=== PATIENT | male | born 1965 | race American Indian/Alaskan Native ===

== ENCOUNTER 2017-03-18 03:48 | Inpatient (IN) | payer MEDICAID ==
[2017-03-18 03:49] VITALS: BMI 38.7
--- NOTE | 2017-03-18 04:06 | ED PDOC ---
Arrival/HPI - General Chief Complaint: Abdominal Pain Time Seen by Provider: 03/18/17 03:50 Historian: Patient - History of Present Illness Narrative History of Present Illness (Text): 03/18/17 04:03 A 52 year old male whose past medical history includes hypertension, ventral hernia, tobacco use, and asthma, presents to the emergency department with a complaint of several day duration, worsening pain surrounding his ventral hernia site. The patient states that he has been able to pass gas and that the pain has become worse over the past few days. The patient denies fevers, chills , headache, dizziness, chest pain, shortness of breath, dyspnea on exertion, cough, nausea, vomiting, diarrhea, back pain, neck pain, urinary/bowel changes, or any other complaint. PMD: Dr. Tavarez Time/Duration: Other (Several Days) Symptom Onset: Sudden Symptom Course: Worsening Activities at Onset: Rest, Light Context: Home Past Medical History - Provider Review Nursing Documentation Reviewed: Yes - Infectious Disease Hx of Infectious Diseases: None - Tetanus Immunization Tetanus Immunization: Unknown - Cardiac Hx Cardiac Disorders: Yes Hx Hypertension: Yes - Pulmonary Hx Respiratory Disorders: Yes Hx Asthma: Yes - Musculoskeletal/Rheumatological Hx Musculoskeletal Disorders: Yes Hx Back Pain: Yes - Gastrointestinal Hx Gastrointestinal Disorders: Yes (umbilical hernia surgery 2009) - Psychiatric Hx Psychophysiologic Disorder: No Hx Substance Use: Yes (5 bags of heroin daily) - Surgical History Hx Inguinal Hernia Repair: Yes (abd hernia) - Anesthesia Hx Anesthesia Reactions: No Hx Malignant Hyperthermia: No - Suicidal Assessment Feels Threatened In Home Enviroment: No Family/Social History - Physician Review Nursing Documentation Reviewed: Yes Family/Social History: No Known Family HX Smoking Status: Light Smoker < 10 Cigarettes Daily Hx Alcohol Use: Yes Frequency of alcohol use: Socially Hx Substance Use: Yes (5 bags of heroin daily) Substance used: heroin Hx Substance Use Treatment: No Allergies/Home Meds Allergies/Adverse Reactions: Allergies No Known Allergies Allergy (Verified 03/25/14 18:35) Home Medications: Home Meds Medication Instructions Recorded Confirmed oxyCODONE [oxyCODONE Immediate 30 mg PO QID 03/18/17 03/18/17 Release Tab] Review of Systems - Physician Review All systems were reviewed & negative as marked: Yes - Review of Systems Constitutional: absent: Fevers, Night Sweats Respiratory: absent: SOB, Cough Cardiovascular: absent: Chest Pain, [place] Gastrointestinal: Abdominal Pain (Pain surrounding ventral hernia ). absent: Diarrhea, Nausea, Vomiting Genitourinary Male: absent: Urinary Output Changes Musculoskeletal: absent: Back Pain, Neck Pain Neurological: absent: Headache, Dizziness Physical Exam Vital Signs Reviewed: Yes Vital Signs Temp Pulse Resp BP Pulse Ox 03/18/17 10:00 80 18 145/90 98 03/18/17 08:37 97.6 F 76 16 149/74 96 03/18/17 06:08 71 18 149/101 H 96 03/18/17 03:55 98.8 F 80 18 160/98 H 96 Temperature: Afebrile Blood Pressure: Hypertensive Pulse: Regular Respiratory Rate: Normal Appearance: Positive for: Well-Appearing, Non-Toxic Pain Distress: None Mental Status: Positive for: Alert and Oriented X 3 - Systems Exam Head: Present: Atraumatic, Normocephalic Pupils: Present: PERRL Extroacular Muscles: Present: EOMI Conjunctiva: Present: Normal Mouth: Present: Moist Mucous Membranes Neck: Present: Normal Range of Motion Respiratory/Chest: Present: Clear to Auscultation, Good Air Exchange. No: Respiratory Distress, Accessory Muscle Use Cardiovascular: Present: Regular Rate and Rhythm, Normal S1, S2. No: Murmurs Abdomen: Present: Tenderness (tender around ventral hernia), Hernias (ventral hernia) Back: Present: Normal Inspection Upper Extremity: Present: Normal Inspection. No: Cyanosis, Edema Lower Extremity: Present: Normal Inspection. No: Edema Neurological: Present: GCS=15, CN II-XII Intact, Speech Normal Skin: Present: Warm, Dry, Normal Color. No: Rashes Psychiatric: Present: Alert, Oriented x 3, Normal Insight, Normal Concentration Medical Decision Making ED Course and Treatment: 03/18/17 04:07 Impression: A 52 year old male presents to the emergency department with a complaint of pain surrounding his ventral hernia site. Plan: -- Labs -- Urinalysis -- Toradol -- Reassess and disposition Prior Visits: Notes and results from previous visits were reviewed. Patient was last seen in the emergency department on 10/17/2014. The patient was seen in the emergency department for a complaint of abdominal pain over ventral hernia. The patient was hospitalized. Progress Notes: 03/18/17 04:07: Discussed case with surgical services manager. Will come evaluate patient. 03/18/17 05:43: Discussed case in detail with Dr. Dennis. 03/18/17 05:50: residential construction instructor at bedside evaluating patient. 03/18/17 06:02 ekg nsr [address] t wave changes, normal intervals. 03/18/17 19:20 signed out tot day shift pending ct and final dispo - Lab Interpretations Lab Results: 03/18/17 04:20 03/18/17 04:20 Lab Results 03/18/17 05:33: Lactate Dehydrogenase 429, Total Creatine Kinase 188, Troponin I < 0.01 03/18/17 05:33: Urine Color Yellow, Urine Appearance Clear, Urine pH 6.0, Ur Specific [place] 1.025, Urine Protein Negative, Urine Glucose (UA) Negative, Urine Ketones Negative, Urine Blood Small H, Urine Nitrate Negative, Urine Bilirubin Negative, Urine Urobilinogen 0.2, Ur Leukocyte Esterase Negative, Urine RBC 5 - 10, Urine WBC 0 - 2, Ur Epithelial Cells 0 - 2, Urine Bacteria Many 03/18/17 04:20: Sodium 140, Potassium 3.8, Chloride 103, Carbon Dioxide 30, Anion Gap 11, BUN 9, Creatinine 0.8, Est GFR ( Amer) > 60, Est GFR (Non- Af Amer) > 60, Random Glucose 117 H, Calcium 8.5, Total Bilirubin 0.2, AST 26, ALT 25, Alkaline Phosphatase 65, Total Protein 6.9, Albumin 3.6, Globulin 3.3, Albumin/Globulin Ratio 1.1, Lipase 20 L 03/18/17 04:20: PT 10.9, INR 1.00, APTT 29.6 03/18/17 04:20: WBC 6.6, RBC 4.56, Hgb 12.2 L, Hct 39.3 L, MCV 86.2, MCH 26.8, MCHC 31.0, RDW 16.1 H, Plt Count 302, MPV 8.5, Gran % 55.2, Lymph % (Auto) 31.0 , [place] % (Auto) 10.0 H, Eos % (Auto) 3.5, Baso % (Auto) 0.3, Gran # 3.64, Lymph # 2.0, [place] # 0.7 H, Eos # 0.2, Baso # 0.02 I have reviewed the lab results: Yes - RAD Interpretation Radiology Orders: 03/18/17 04:58 ABD PELVIS PO & IV CONTRAST [CT] Stat - Medication Orders Current Medication Orders: Albuterol/Ipratropium (Duoneb 3 Mg/0.5 Mg (3 Ml) Ud) 3 ml IH [id number] PRN PRN Reason: Wheezing Albuterol/Ipratropium (Duoneb 3 Mg/0.5 Mg (3 Ml) Ud) 3 ml IH [id number] [facility] Last Admin: 03/18/17 14:52 Dose: Not Given Non-Admin Reason: Patient Refused Benzocaine/Menthol (Cepacol Sore Throat) 1 dalia MT Q2H PRN PRN Reason: Sore Throat Budesonide (Pulmicort Respules) 0.5 mg IH [id number] [facility] Clonidine HCl (Catapres-Tts2 0.2 Mg/24 Hr) 1 patch TD Q7D@1000 GO Last Admin: 03/18/17 18:11 Dose: 1 patch MAR Pulse and Blood Pressure Document 03/18/17 18:11 MV (Rec: 03/18/17 18:12 MV [id number]) Blood Pressure Blood Pressure (100/60-150/90) 176/96 MAR Transdermal Patch Site Document 03/18/17 18:11 MV (Rec: 03/18/17 18:12 MV [id number]) Transdermal Patch Site Transdermal Patch Site Right Outer Upper Arm Heparin Sodium (Porcine) (Heparin) 5,000 units SC Q8 GO PRN Reason: Protocol Last Admin: 03/18/17 17:17 Dose: 5,000 units Subcutaneous Administrations Document 03/18/17 17:17 MV (Rec: 03/18/17 17:18 MV [id number]) Charges for Administration # of Subcutaneous Administrations 1 Hydromorphone HCl (Dilaudid) 1 mg IVP Q2H PRN PRN Reason: withdrawl Last Admin: 03/18/17 18:10 Dose: 1 mg MAR Pain Assessment Document 03/18/17 18:10 MV (Rec: 03/18/17 18:11 MV [id number]) Pain Reassessment Is this a pain reassessment? No Sleep Is patient sleeping during reassessment? No Presence of Pain Presence of Pain Yes Location Pain Location Body Site Generalized Description Description Throbbing Intensity of Pain at present 9 Pain Behavior Irritability Alleviating Factors/Management Medication Techniques Alleviating Factors Medication IVP Administration Document 03/18/17 18:10 MV (Rec: 03/18/17 18:11 MV [id number]) Charges for Administration # of IVP Administrations 1 Dextrose/Sodium Chloride (Dextrose 5%/0.45% Ns 1000 Ml) 1,000 mls @ 150 mls/hr IV .Q6H40M [facility] Last Admin: 03/18/17 17:32 Dose: 150 mls/hr eMAR Start Stop Document 03/18/17 17:32 MV (Rec: 03/18/17 17:32 MV [id number]) Intravenous Solution Start Date 03/18/17 Start Time 17:32 End Date 03/18/17 Metronidazole (Flagyl) 250 mg in 50 mls @ 100 mls/hr IVPB Q8 GO PRN Reason: Protocol Stop: 03/23/17 15:01 Last Admin: 03/18/17 17:19 Dose: 100 mls/hr Comments: Patient was a transfer from . called pharmacy for medication. eMAR Start Stop Document 03/18/17 17:19 MV (Rec: 03/18/17 17:20 MV [id number]) Intravenous Solution Start Date 03/18/17 Start Time 17:20 End Date 03/18/17 End time 17:50 Total Infusion Time 30 Ceftriaxone Sodium 250 mg/ (Sodium Chloride) 50 mls @ 30 mls/hr IVPB DAILY [facility] PRN Reason: Protocol Ondansetron HCl (Zofran Inj) 4 mg IVP Q6H PRN PRN Reason: Nausea/Vomiting Last Admin: 03/18/17 16:28 Dose: 4 mg IVP Administration Document 03/18/17 16:28 MV (Rec: 03/18/17 16:28 MV [id number]) Charges for Administration # of IVP Administrations 1 Pantoprazole Sodium (Protonix Inj) 40 mg IVP DAILY [facility] Last Admin: 03/18/17 13:02 Dose: 40 mg IVP Administration Document 03/18/17 13:02 SD (Rec: 03/18/17 13:02 SD [facility] [id number]) Charges for Administration # of IVP Administrations 1 Discontinued Medications Hydromorphone HCl (Dilaudid) 1 mg IVP STAT STA Stop: 03/18/17 10:35 Last Admin: 03/18/17 10:42 Dose: 1 mg MAR Pain Assessment Document 03/18/17 10:42 EWO (Rec: 03/18/17 10:42 E[facility] [id number] Pain Reassessment Is this a pain reassessment? Yes Sleep Is patient sleeping during reassessment? No Presence of Pain Presence of Pain Yes Location Pain Location Body Site Abdomen Description Description Constant IVP Administration Document 03/18/17 10:42 EWO (Rec: 03/18/17 10:42 [id number] Charges for Administration # of IVP Administrations 1 Hydromorphone HCl (Dilaudid) 1 mg IVP STAT STA Stop: 03/18/17 11:25 Last Admin: 03/18/17 11:40 Dose: 1 mg MAR Pain Assessment Document 03/18/17 11:40 EWO (Rec: 03/18/17 11:41 [id number] Pain Reassessment Is this a pain reassessment? Yes Sleep Is patient sleeping during reassessment? No Presence of Pain Presence of Pain Yes Pain Scale Used Pain Scale Used Numeric Location Pain Location Body Site Abdomen Description Description Constant Intensity of Pain at present 9 IVP Administration Document 03/18/17 11:40 EWO (Rec: 03/18/17 11:41 [id number] Charges for Administration # of IVP Administrations 2 Re-Assess: MAR Pain Assessment Document 03/18/17 12:40 SD (Rec: 03/18/17 12:46 SD [facility] [id number]) Pain Reassessment Is this a pain reassessment? Yes Sleep Is patient sleeping during reassessment? No Presence of Pain Presence of Pain Yes Pain Scale Used Pain Scale Used Numeric Location Pain Location Body Site Abdomen Description Description Constant Intensity of Pain at present 10 Pain Behavior Facial Grimacing Hydromorphone HCl (Dilaudid) 1 mg IVP Q4H PRN PRN Reason: Pain, severe (8-10) Last Admin: 03/18/17 13:43 Dose: 1 mg MAR Pain Assessment Document 03/18/17 13:43 SD (Rec: 03/18/17 13:43 SD [facility] [id number]) Pain Reassessment Is this a pain reassessment? No Presence of Pain Presence of Pain Yes Pain Scale Used Pain Scale Used Numeric Location Pain Location Body Site Abdomen Description Description Constant Intensity of Pain at present 10 Pain Behavior Facial Grimacing IVP Administration Document 03/18/17 13:43 SD (Rec: 03/18/17 13:43 SD [facility] [id number]) Charges for Administration # of IVP Administrations 1 Dextrose/Sodium Chloride (Dextrose 5%/0.45% Ns 1000 Ml) 1,000 mls @ 100 mls/hr IV .Q10H [facility] Last Admin: 03/18/17 09:56 Dose: 100 mls/hr eMAR Start Stop Document 03/18/17 09:56 EWO (Rec: 03/18/17 09:57 EWO [facility] [id number]) Intravenous Solution Start Date 03/18/17 Start Time 09:57 Ketorolac Tromethamine (Toradol) 30 mg IVP STAT STA Stop: 03/18/17 04:04 Last Admin: 03/18/17 04:22 Dose: 30 mg MAR Pain Assessment Document 03/18/17 04:22 SS (Rec: 03/18/17 04:22 SS [id number]) Pain Reassessment Is this a pain reassessment? No Sleep Is patient sleeping during reassessment? No Presence of Pain Presence of Pain Yes IVP Administration Document 03/18/17 04:22 SS (Rec: 03/18/17 04:22 SS [id number]) Charges for Administration # of IVP Administrations 1 Methadone HCl (Methadone) 10 mg PO STAT STA Stop: 03/18/17 16:42 Last Admin: 03/18/17 17:18 Dose: 10 mg MAR Pain Assessment Document 03/18/17 17:18 MV (Rec: 03/18/17 17:19 MV [id number]) Pain Reassessment Is this a pain reassessment? No Sleep Is patient sleeping during reassessment? No Presence of Pain Presence of Pain Yes Pain Scale Used Pain Scale Used Numeric Location Pain Location Body Site Generalized Description Description Constant Intensity of Pain at present 9 Pain Behavior Moaning Irritability Facial Grimacing Alleviating Factors/Management Medication Techniques Alleviating Factors Medication Morphine Sulfate (Morphine) 4 mg IV STAT STA Stop: 03/18/17 08:31 Last Admin: 03/18/17 08:53 Dose: 4 mg eMAR Start Stop Document 03/18/17 08:53 EWO (Rec: 03/18/17 08:54 EWO [facility] [id number]) Intravenous Solution Start Date 03/18/17 Start Time 08:54 End Date 03/18/17 End time 09:00 Total Infusion Time 6 MAR Pain Assessment Document 03/18/17 08:53 EWO (Rec: 03/18/17 08:54 EWO [facility] [id number]) Pain Reassessment Is this a pain reassessment? Yes Sleep Is patient sleeping during reassessment? No Presence of Pain Presence of Pain Yes Pain Scale Used Pain Scale Used Numeric Location Pain Location Body Site Abdomen Description Description Intermittent Intensity of Pain at present 7 Pneumococcal Polyvalent Vaccine (Pneumovax 23 Vaccine) 0.5 ml IM .ONCE ONE Stop: 03/18/17 12:37 Last Admin: 03/18/17 12:45 Dose: Immunization Registry Document 03/18/17 12:45 SD (Rec: 03/18/17 12:45 SD [facility] [id number]) Immunization Registry Consent Date 03/18/17 - Scribe Statement The provider has reviewed the documentation as recorded by the Navid Feliciano Provider Scribe Attestation: All medical record entries made by the Scribe were at my direction and personally dictated by me. I have reviewed the chart and agree that the record accurately reflects my personal performance of the history, physical exam, medical decision making, and the department course for this patient. I have also personally directed, reviewed, and agree with the discharge instructions and disposition. Disposition/Present on Arrival - Present on Arrival Any Indicators Present on Arrival: No History of DVT/PE: No History of Uncontrolled Diabetes: No Urinary Catheter: No History of Decub. Ulcer: No History Surgical Site Infection Following: None - Disposition Have Diagnosis and Disposition been Completed?: Yes Diagnosis: Incarcerated ventral hernia, SBO (small bowel obstruction), Intractable abdominal pain Disposition: HOSPITALIZED Disposition Time: 07:00 Patient Problems: Current Active Problems Problem Status Onset Incarcerated ventral hernia Acute Intractable abdominal pain Acute SBO (small bowel obstruction) Acute Condition: STABLE
[2017-03-18 04:49] LABS: BASO # 0.02 K/mm3 (0.0-2.0); BASO % 0.3 % (0.0-3.0); EOS # 0.2 (0.0-0.7); EOS % 3.5 % (1.5-5.0); GRAN # 3.64 (1.4-6.5); GRAN % 55.2 % (50.0-68.0); HEMOGLOBIN 12.2 g/dL (14.0-18.0); MEAN CELL VOLUME 86.2 fl (80.0-105.0); MEAN CORPUSCULAR HEMOGLOBIN 26.8 pg (25.0-35.0); MEAN PLATELET VOLUME 8.5 fl (7.0-11.0); MONO # 0.7 (0.1-0.6); RBC 4.56 10^6/uL (3.5-6.1); RED CELL DISTRIBUTION WIDTH 16.1 % (11.5-14.5); WHITE BLOOD COUNT 6.6 10^3/ul (4.5-11.0)
[2017-03-18 04:51] LABS: ALB/GLOB RATIO 1.1 (1.1-1.8); ALBUMIN 3.6 g/dL (3.0-4.8); ALT/SGPT 25 U/L (7-56); AST/SGOT 26 U/L (17-59); BLOOD UREA NITROGEN 9 mg/dL (7-21); CALCIUM 8.5 mg/dL (8.4-10.5); GFR AFRICAN-AMERICAN > 60; GFR NON-AFRICAN AMERICAN > 60; LIPASE 20 U/L (23-300)
[2017-03-18 04:59] LABS: PARTIAL THROMBOPLASTIN TIME 29.6 Seconds (25.1-36.5); PROTHROMBIN TIME 10.9 SECONDS (9.4-12.5)
[2017-03-18] MEDS ORDERED: Iohexol 240 (50 ml) ONE (05:33)
[2017-03-18 05:51] LABS: URINE BILIRUBIN NEGATIVE (NEGATIVE); URINE BLOOD SMALL (NEGATIVE); URINE GLUCOSE (UA) NEGATIVE (NEGATIVE); URINE LEUKOCYTE ESTERASE NEGATIVE Leu/uL (NEGATIVE); URINE NITRATE NEGATIVE (NEGATIVE); URINE PROTEIN NEGATIVE mg/dL (<30 mg/dL); URINE UROBILINOGEN 0.2 E.U./dL (<1 E.U./dL)
[2017-03-18 05:52] LABS: URINE APPEARANCE CLEAR (CLEAR); URINE COLOR YELLOW (YELLOW)
[2017-03-18 06:02] LABS: TROPONIN I < 0.01 ng/mL
[2017-03-18 06:26] LABS: URINE BACTERIA MANY (NEG); URINE EPITHELIAL CELLS 0 - 2 /hpf (0-5); URINE WBC 0 - 2 /hpf (0-6)
[2017-03-18] MEDS ORDERED: Iohexol 350 MG/100 ML VIAL ONE (07:16)
--- NOTE | 2017-03-18 07:23 | ED PDOC ---
Physical Exam Vital Signs Reviewed: Yes Vital Signs Temp Pulse Resp BP Pulse Ox 03/18/17 10:00 80 18 145/90 98 03/18/17 08:37 97.6 F 76 16 149/74 96 03/18/17 06:08 71 18 149/101 H 96 03/18/17 03:55 98.8 F 80 18 160/98 H 96 Temperature: Afebrile Blood Pressure: Hypertensive Pulse: Regular Respiratory Rate: Normal Appearance: Positive for: Well-Appearing, Non-Toxic, Comfortable Pain Distress: Mild Mental Status: Positive for: Alert and Oriented X 3 - Systems Exam Head: Present: Atraumatic, Normocephalic Pupils: Present: PERRL Extroacular Muscles: Present: EOMI Conjunctiva: Present: Normal Mouth: Present: Moist Mucous Membranes Neck: Present: Normal Range of Motion Respiratory/Chest: Present: Clear to Auscultation, Good Air Exchange. No: Respiratory Distress, Accessory Muscle Use Cardiovascular: Present: Regular Rate and Rhythm, Normal S1, S2. No: Murmurs Abdomen: Present: Normal Bowel Sounds, Other (mid abd large ventral hernia is noted, reducible; diffuse mid/lower abd tenderness; obese/well nourished male; no fermin's sign, no mcburney's point tenderness, no rebound/guarding/rigidity) . No: Tenderness, Distention, Peritoneal Signs Back: Present: Normal Inspection Upper Extremity: Present: Normal Inspection, Normal ROM, NORMAL PULSES, Neurovascularly Intact, Capillary Refill < 2s. No: Cyanosis, Edema Lower Extremity: Present: Normal Inspection, NORMAL PULSES, Normal ROM, Neurovascularly Intact, Capillary Refill < 2 s. No: Edema Neurological: Present: GCS=15, CN II-XII Intact, Speech Normal Skin: Present: Warm, Dry, Normal Color. No: Rashes Psychiatric: Present: Alert, Oriented x 3, Normal Insight, Normal Concentration Medical Decision Making ED Course and Treatment: 03/18/17 07:00 Case signed out to me by Dr. Chew. 52 year old male came in to the emergency department with abdominal pain for a couple of days. Currently pending CT scan. resident medical officer polymer materials consultant was contacted on behalf of Dr. Dennis and had evaluated the patient at bedside earlier tonight. per Dr. Chew patient can be disposition accordingly. 03/18/17 08:25 pt denied nausea/vomiting pt states last BM was yesterday on re-eval, pt states his pain is coming back and is now rated at 7/10 pt is awaiting for his ct abd/pelvis results 03/18/17 09:05 Spoke to patient regarding CT diagnosis who is now made aware of findings. Patient was instructed not to eat prior to reevaluation, however he has breakfast about half and hour ago. Patient agrees with admission. resident medical officer was paged and currently awaiting reply. 03/18/17 09:10 Message transcribed to operations vice president who is currently in and will reevaluate patient with case. 03/18/17 10:32 Surgical team/resident is at bed side with patient and agree with emergency department medical management, treatment, and diagnosis. Recommends admission with Dr. Dennis for patient's care and surgical findings. 03/18/17 10:40 resident medical officer called, Dr. Dennis does not want to admit patient into his service; would like medicine to admit due to pt's complicated medical hx/ substance abuse 03/18/17 10:57 paging medicine 03/18/17 11:[address] Tavarez, pt' pcp, made aware, would like pt admitted by hospitalists paging hospitalists, Dr Maddox polymer materials consultant, made aware, agrees with admission 03/18/17 11:25 pt continues to have abd pain currently pt is made aware of his medical results agrees with admission Re-evaluation Time: 08:20 Reassessment Condition: Improving,but remains with symptoms - Lab Interpretations Lab Results: 03/18/17 04:20 03/18/17 04:20 Lab Results 03/18/17 05:33: Lactate Dehydrogenase 429, Total Creatine Kinase 188, Troponin I < 0.01 03/18/17 05:33: Urine Color Yellow, Urine Appearance Clear, Urine pH 6.0, Ur Specific [place] 1.025, Urine Protein Negative, Urine Glucose (UA) Negative, Urine Ketones Negative, Urine Blood Small H, Urine Nitrate Negative, Urine Bilirubin Negative, Urine Urobilinogen 0.2, Ur Leukocyte Esterase Negative, Urine RBC 5 - 10, Urine WBC 0 - 2, Ur Epithelial Cells 0 - 2, Urine Bacteria Many 03/18/17 04:20: Sodium 140, Potassium 3.8, Chloride 103, Carbon Dioxide 30, Anion Gap 11, BUN 9, Creatinine 0.8, Est GFR ( Amer) > 60, Est GFR (Non- Af Amer) > 60, Random Glucose 117 H, Calcium 8.5, Total Bilirubin 0.2, AST 26, ALT 25, Alkaline Phosphatase 65, Total Protein 6.9, Albumin 3.6, Globulin 3.3, Albumin/Globulin Ratio 1.1, Lipase 20 L 03/18/17 04:20: PT 10.9, INR 1.00, APTT 29.6 03/18/17 04:20: WBC 6.6, RBC 4.56, Hgb 12.2 L, Hct 39.3 L, MCV 86.2, MCH 26.8, MCHC 31.0, RDW 16.1 H, Plt Count 302, MPV 8.5, Gran % 55.2, Lymph % (Auto) 31.0 , Kaufman % (Auto) 10.0 H, Eos % (Auto) 3.5, Baso % (Auto) 0.3, Gran # 3.64, Lymph # 2.0, Kaufman # 0.7 H, Eos # 0.2, Baso # 0.02 I have reviewed the lab results: Yes (WNL) Interpretation: All labs normal - RAD Interpretation Narrative RAD Interpretations (Text): 03/18/17 09:05 CT abdomen and pelvis: Creator : YAAKOV JACKSON COMPARISON: CT - ABD PELVIS PO CONTRAST ONLY 2016-06-07 09:50 FINDINGS: Lower thorax: Bibasilar right more than left nonspecific infiltrates are present, consistent with atelectasis or pneumonia. ABDOMEN: Liver: Perihepatic fluid around the right inferior aspect of the liver. Fatty liver. Gallbladder and bile ducts: Contracted gallbladder with gallbladder wall thickening. Pancreas: Unremarkable. No mass. No ductal dilation. Spleen: Unremarkable. No splenomegaly. Adrenals: Nodular thickening of right adrenal gland. Left adrenal nodule measuring 2.7 cm unchanged from prior examination from October 17, 2014 as indicated in the report dated June 07, 2016 likely representing benign etiology. Kidneys and ureters: Unremarkable. No solid mass. No hydronephrosis. Stomach and bowel: There is a moderate fat containing ventral abdominal wall hernia as seen on image 84 series 3. There is bowel containing ventral abdominal wall hernia as seen on image 109 series 3 and on image 91 series 602 with surrounding bowel wall thickening infiltration and resultant small bowel obstruction suspicious for incarcerated ventral hernia. Diverticulosis. There is calcific densities overlying the duodenum unchanged from prior examination. Appendix: The appendix is not seen. PELVIS: Bladder: Partially decompressed bladder with bladder wall thickening. Correlation with urinalysis is recommended only if clinical cystitis is suspected. Reproductive: Prostate gland is seen. ABDOMEN and PELVIS: Intraperitoneal space: Small amount of free pelvic fluid. No free air. Bones/joints: L5-S1 vacuum degenerative disc disease. No acute fracture. No dislocation. Soft tissues: Unremarkable. Vasculature: Unremarkable. No abdominal aortic aneurysm. Lymph nodes: Unremarkable. No enlarged lymph nodes. IMPRESSION: 1. There is a moderate fat containing ventral abdominal wall hernia as seen on image 84 series 3. There is bowel containing ventral abdominal wall hernia as seen on image 109 series 3 and on image 91 series 602 with surrounding bowel wall thickening infiltration and resultant small bowel obstruction suspicious for incarcerated ventral hernia. 2. Small amount of free pelvic fluid. Radiology Orders: 03/18/17 04:58 ABD PELVIS PO & IV CONTRAST [CT] Stat Alcoholic Counselor: Radiologist - EKG Interpretation EKG Interpretation (Text): 03/18/17 10:58 NSR at 65 bpm, LAD, no ectopy, no st-t changes, ABNL EKG; Interpreted by ED Physician: Yes Type: 12 lead EKG - Medication Orders Current Medication Orders: Dextrose/Sodium Chloride (Dextrose 5%/0.45% Ns 1000 Ml) 1,000 mls @ 100 mls/hr IV .Q10H GO Last Admin: 03/18/17 09:56 Dose: 100 mls/hr eMAR Start Stop Document 03/18/17 09:56 [facility] (Rec: 03/18/17 09:57 [facility]-[id number]) Intravenous Solution Start Date 03/18/17 Start Time 09:57 Discontinued Medications Hydromorphone HCl (Dilaudid) 1 mg IVP STAT STA Stop: 03/18/17 10:35 Last Admin: 03/18/17 10:42 Dose: 1 mg MAR Pain Assessment Document 03/18/17 10:42 EW (Rec: 03/18/17 10:42 [facility]-[id number]) Pain Reassessment Is this a pain reassessment? Yes Sleep Is patient sleeping during reassessment? No Presence of Pain Presence of Pain Yes Location Pain Location Body Site Abdomen Description Description Constant IVP Administration Document 03/18/17 10:42 EWO (Rec: 03/18/17 10:42 [id number]) Charges for Administration # of IVP Administrations 1 Hydromorphone HCl (Dilaudid) 1 mg IVP STAT STA Stop: 03/18/17 11:25 Ketorolac Tromethamine (Toradol) 30 mg IVP STAT STA Stop: 03/18/17 04:04 Last Admin: 03/18/17 04:22 Dose: 30 mg MAR Pain Assessment Document 03/18/17 04:22 SS (Rec: 03/18/17 04:22 SS [id number]) Pain Reassessment Is this a pain reassessment? No Sleep Is patient sleeping during reassessment? No Presence of Pain Presence of Pain Yes IVP Administration Document 03/18/17 04:22 SS (Rec: 03/18/17 04:22 SS [id number]) Charges for Administration # of IVP Administrations 1 Morphine Sulfate (Morphine) 4 mg IV STAT STA Stop: 03/18/17 08:31 Last Admin: 03/18/17 08:53 Dose: 4 mg eMAR Start Stop Document 03/18/17 08:53 EWO (Rec: 03/18/17 08:54 E[facility] [place] [id number]) Intravenous Solution Start Date 03/18/17 Start Time 08:54 End Date 03/18/17 End time 09:00 Total Infusion Time 6 MAR Pain Assessment Document 03/18/17 08:53 EWO (Rec: 03/18/17 08:54 EWO [facility] [id number]) Pain Reassessment Is this a pain reassessment? Yes Sleep Is patient sleeping during reassessment? No Presence of Pain Presence of Pain Yes Pain Scale Used Pain Scale Used Numeric Location Pain Location Body Site Abdomen Description Description Intermittent Intensity of Pain at present 7 - Scribe Statement The provider has reviewed the documentation as recorded by the Charlyibtrent Almendarez Provider Scribe Attestation: All medical record entries made by the Scribe were at my direction and personally dictated by me. I have reviewed the chart and agree that the record accurately reflects my personal performance of the history, physical exam, medical decision making, and the department course for this patient. I have also personally directed, reviewed, and agree with the discharge instructions and disposition. Disposition/Present on Arrival - Present on Arrival Any Indicators Present on Arrival: Yes History of DVT/PE: No History of Uncontrolled Diabetes: No Urinary Catheter: No History of Decub. Ulcer: No History Surgical Site Infection Following: None - Disposition Have Diagnosis and Disposition been Completed?: Yes Diagnosis: Incarcerated ventral hernia, SBO (small bowel obstruction), Intractable abdominal pain Disposition: HOSPITALIZED Disposition Time: 11:15 Patient Plan: Admission Condition: STABLE
[2017-03-18] MEDS ORDERED: Morphine 2 mg/ml ISec IVP STA (08:23)
[2017-03-18] MEDS ORDERED: Morphine 4 mg/ml ISec IV STA (08:30)
--- NOTE | 2017-03-18 09:01 | CT ---
EXAM: CT Abdomen and Pelvis With Intravenous Contrast CLINICAL HISTORY: 52 years old, male; Pain; Abdominal pain; Generalized; Prior surgery; Surgery date: 6+ months; Surgery type: Hernia repair; Additional info: Abd pain h/o of hernia TECHNIQUE: Axial computed tomography images of the abdomen and pelvis with intravenous contrast. All CT scans at this facility use one or more dose reduction techniques, viz.: automated exposure control; ma/kV adjustment per patient size (including targeted exams where dose is matched to indication; i.e. head); or iterative reconstruction technique. 679 images are submitted. Oral contrast was administered. Coronal and sagittal reformatted images were created and reviewed. CONTRAST: 100 mL of omni 350 administered intravenously. COMPARISON: CT - ABD PELVIS PO CONTRAST ONLY 2016-06-07 09:50 FINDINGS: Lower thorax: Bibasilar right more than left nonspecific infiltrates are present, consistent with atelectasis or pneumonia. ABDOMEN: Liver: Perihepatic fluid around the right inferior aspect of the liver. Fatty liver. Gallbladder and bile ducts: Contracted gallbladder with gallbladder wall thickening. Pancreas: Unremarkable. No mass. No ductal dilation. Spleen: Unremarkable. No splenomegaly. Adrenals: Nodular thickening of right adrenal gland. Left adrenal nodule measuring 2.7 cm unchanged from prior examination from October 17, 2014 as indicated in the report dated June 07, 2016 likely representing benign etiology. Kidneys and ureters: Unremarkable. No solid mass. No hydronephrosis. Stomach and bowel: There is a moderate fat containing ventral abdominal wall hernia as seen on image 84 series 3. There is bowel containing ventral abdominal wall hernia as seen on image 109 series 3 and on image 91 series 602 with surrounding bowel wall thickening infiltration and resultant small bowel obstruction suspicious for incarcerated ventral hernia. Diverticulosis. There is calcific densities overlying the duodenum unchanged from prior examination. Appendix: The appendix is not seen. PELVIS: Bladder: Partially decompressed bladder with bladder wall thickening. Correlation with urinalysis is recommended only if clinical cystitis is suspected. Reproductive: Prostate gland is seen. ABDOMEN and PELVIS: Intraperitoneal space: Small amount of free pelvic fluid. No free air. Bones/joints: L5-S1 vacuum degenerative disc disease. No acute fracture. No dislocation. Soft tissues: Unremarkable. Vasculature: Unremarkable. No abdominal aortic aneurysm. Lymph nodes: Unremarkable. No enlarged lymph nodes. IMPRESSION: 1. There is a moderate fat containing ventral abdominal wall hernia as seen on image 84 series 3. There is bowel containing ventral abdominal wall hernia as seen on image 109 series 3 and on image 91 series 602 with surrounding bowel wall thickening infiltration and resultant small bowel obstruction suspicious for incarcerated ventral hernia. 2. Small amount of free pelvic fluid.
--- NOTE | 2017-03-18 09:36 | CP.PCM.PCO ---
Physician Communication Note - Physician Communication Note Physician Communication Note: PSBO:Salvador NPO save meds/Pulm-cardiac eval/Poss surgery 48Hr
[2017-03-18] MEDS ORDERED: Dextrose 5%/0.45% NS 1,000 ML IV SCH ×2 (09:45→11:45)
--- NOTE | 2017-03-18 10:16 | CARD ---
APPROVED REPORT EKG Measurement Heart [id number] [id number] <Conclusion> Normal sinus rhythm Left axis deviation PRWP LAD No change
[2017-03-18] MEDS ORDERED: HYDROmorphone 1 mg/ml ISec IVP STA ×2 (10:34→11:24)
[2017-03-18 11:08] LABS: BARBITURATES, UR NEGATIVE (NEGATIVE); BENZODIAZEPINES, UR NEGATIVE (NEGATIVE); PHENCYCLIDINE, UR NEGATIVE (NEGATIVE)
[2017-03-18 11:16] LABS: OPIATES, UR POSITIVE (NEGATIVE)
[2017-03-18] MEDS ORDERED: Morphine 4 mg/ml ISec IVP PRN (12:33)
[2017-03-18] MEDS ORDERED: Influenza Vaccine 60 mcg/0.5 mL SYR (4YR UP) IM ONE (12:36)
[2017-03-18] MEDS ORDERED: Pneumococcal 23-Valent Vaccine IM ONE (12:36)
[2017-03-18] MEDS ORDERED: Albuterol-Ipratrop 3 mg / 0.5 (3 ml) UD IH PRN (12:42)
[2017-03-18] MEDS ORDERED: HYDROmorphone 1 mg/ml ISec IVP PRN (13:08)
--- NOTE | 2017-03-18 13:15 | CP.PCM.HP ---
<Warren Burroughs - Last Filed: 03/18/17 13:28> History of Present Illness - History of Present Illness History of Present Illness: CC: Abdominal pain 52 yo male whose past medical history includes HTN, ventral hernia, tobacco use , and asthma, presents to the ED with a c/o abdominal pain. Pt states that his pain is epigastric, initially started 4 days ago and has gotten progressively worse. Than yesterday it became very severe 10/10 and was accompanied by nausea and NBNB vomiting. Denies any radiation of his pain. Denies any episodes of diarrhea and last BM was 2 days ago. Denies any other complaints. Denies any fever, chills, sob, chest pain, palpitations. 12 Point ROS performed and negative other than stated above. PMH: as above PSH: Ventral hernia repair a few years ago Med: refer to [facility] ALL: NKA SH: smokes 1/2PPD, denies drinking, and does Heroin, Cocaine, and Methadone ( unkown from off streets or clinic) FH: denies Present on Admission - Present on Admission Any Indicators Present on Admission: No Review of Systems - Review of Systems All systems: reviewed and no additional remarkable complaints except Past Patient History - Infectious Disease Hx of Infectious Diseases: None - Tetanus Immunizations Tetanus Immunization: Unknown - Past Social History Smoking Status: Current Some Days Smoker - CARDIAC Hx Hypertension: Yes - PULMONARY Hx Asthma: Yes - MUSCULOSKELETAL/RHEUMATOLOGICAL Hx Falls: No - GASTROINTESTINAL Hx Gastrointestinal Disorders: Yes (umbilical hernia surgery 2009) - PSYCHIATRIC Other/Comment: substance yesterday morning heroin - SURGICAL HISTORY Hx Surgeries: Yes - ANESTHESIA Hx Anesthesia Reactions: No Hx Malignant Hyperthermia: No Meds Allergies/Adverse Reactions: Allergies Allergy/AdvReac Type Severity Reaction Status Date / Time No Known Allergies Allergy Verified 03/25/14 18:35 Physical Exam - Constitutional Appears: No Acute Distress - Head Exam Head Exam: ATRAUMATIC, NORMOCEPHALIC - Eye Exam Eye Exam: EOMI, PERRL - ENT Exam ENT Exam: Mucous Membranes Moist - Respiratory Exam Respiratory Exam: Clear to Auscultation Bilateral. absent: Rales, Wheezes - Cardiovascular Exam Cardiovascular Exam: REGULAR RHYTHM, RRR, +S1, +S2 - GI/Abdominal Exam GI & Abdominal Exam: Distended, Hernia, Tenderness. absent: Guarding Additional comments: Mild - Extremities Exam Extremities exam: Negative for: calf tenderness, pedal edema - Neurological Exam Neurological exam: Alert, Oriented x3 - Psychiatric Exam Psychiatric exam: Normal Affect, Normal Mood - Skin Skin Exam: Dry, Intact, Warm Results - Vital Signs Recent Vital Signs: Last Vital Signs Temp 98.7 F 03/18/17 12:19 Pulse 70 03/18/17 12:19 Resp 18 03/18/17 12:19 BP 161/107 H 03/18/17 12:19 Pulse Ox 98 03/18/17 10:00 - Labs Result Diagrams: 03/18/17 04:20 03/18/17 04:20 Assessment & Plan - Assessment and Plan (Free Text) Assessment: 52 yo male whose past medical history includes HTN, ventral hernia, tobacco use , and asthma, presents to the ED c/o abdominal pain likely 2/2 suspicious incarcerated hernia and SBO. 1. Abd pain 2/2 suspicious incarcerated hernia and resultant SBO - NPO - Consulted Surgery for recs - pain control - Zofran PRN - Cont IV fluids D5 1/2 NS @ 100 - CT abd/pelvis reviewed and shows - suspicious incarcerated hernia and resultant SBO - Cardiology and Pulm Consulted for clearance and recs - Labs 2. Asthma - Duonebs Q4H PRN - Cont to monitor 3. Hx of HTN - Cont to monitor 4. Hx of Drug abuse - Utox + Cocaine, and opiods - Cont to monitor for withdrawals 5. GI/DVT px - Protonix and SCDs Case and plan was reviewed and discussed in detail with Dr Maddox. <Desirae Maddox - Last Filed: 03/18/17 15:36> Results - Vital Signs Recent Vital Signs: Last Vital Signs Temp 98.7 F 03/18/17 12:19 Pulse 70 03/18/17 12:19 Resp 18 03/18/17 12:19 BP 161/107 H 03/18/17 12:19 Pulse Ox 98 03/18/17 10:00 - Labs Result Diagrams: 03/18/17 04:20 03/18/17 04:20 Labs: Laboratory Results - last 24 hr 03/18/17 13:25 Troponin I < 0.01 Attending/Attestation - Attestation I have personally seen and examined this patient.: Yes I have fully participated in the care of the patient.: Yes I have reviewed all pertinent clinical information: Yes Notes (Text): 03/18/17 15:24 52 year old male with past medical history of hypertension, asthma, ventral hernia and substance abuse (cocaine, opiates and heroine) who presented with abdominal pain with nausea and vomiting. CT abd/pelvis showed incarcerated fat containing ventral hernia. Surgery evaluation was appreciated. Continue with NPO, iv fluids, antiemetics and analgesics as needed. Antibiotics as per surgery. He was counselled on risks of continued substance abuse. Counselled on smoking cessation. Case was discussed with his pmd Dr. Tavarez. Desirae Maddox MD Hospitalist.
[2017-03-18] MEDS ORDERED: Benzocaine/Menthol (Cepacol) Lozenge MT PRN (14:19)
--- NOTE | 2017-03-18 14:30 | CP.PCM.CON ---
History of Present Illness - History of Present Illness History of Present Illness: Surgery 52 yo male whose past medical history includes Obesity, HTN, ventral hernia s/p repair, tobacco use, multisubstance abuse and asthma, presents to the ED with a c/o abdominal pain. Pt states that his pain is epigastric, initially started 4 days ago and has gotten progressively worse. Than yesterday it became very severe 10/10 and was accompanied by nausea and NBNB vomiting. Now pain is progressed to diffuse pain. Denies any episodes of diarrhea and last BM/flatus was 2 days ago. Pt was seen by Dr. Dennis in the past. Weight loss was recommended. Pt is non-compliant with his medication, life style modification. Pt reports taking 10+ bags of heroin, oxycodone 30mg QID. Denies any fever, chills, sob, chest pain, palpitations, skin changes,hematemesis, hematochezia, melena. CT shows incarcerated fat containing ventral hernia. Surgery is consulted to evalaute for incarcerated ventral hernia. 12 Point ROS performed and negative other than stated above. PMH: Obesity, HTN, ventral hernia s/p repair, tobacco use, and asthma PSH: Ventral hernia repair 2009 ALL: NKA SH: smokes 1/2PPD, denies drinking, and does Heroin, Cocaine, and Methadone ( unkown from off streets or clinic) Review of Systems - Review of Systems Review of Systems: See HPI Past Patient History - Infectious Disease Hx of Infectious Diseases: None - Tetanus Immunizations Tetanus Immunization: Unknown - Past Social History Smoking Status: Current Some Days Smoker - CARDIAC Hx Hypertension: Yes - PULMONARY Hx Asthma: Yes - MUSCULOSKELETAL/RHEUMATOLOGICAL Hx Falls: No - GASTROINTESTINAL Hx Gastrointestinal Disorders: Yes (umbilical hernia surgery 2009) - PSYCHIATRIC Other/Comment: substance yesterday morning heroin - SURGICAL HISTORY Hx Surgeries: Yes - ANESTHESIA Hx Anesthesia Reactions: No Hx Malignant Hyperthermia: No Meds Allergies/Adverse Reactions: Allergies Allergy/AdvReac Type Severity Reaction Status Date / Time No Known Allergies Allergy Verified 03/25/14 18:35 - Medications Medications: Current Medications Albuterol/Ipratropium (Duoneb 3 Mg/0.5 Mg (3 Ml) Ud) 3 ml IH [id number] PRN PRN Reason: Wheezing Albuterol/Ipratropium (Duoneb 3 Mg/0.5 Mg (3 Ml) Ud) 3 ml IH [id number] [facility] Benzocaine/Menthol (Cepacol Sore Throat) 1 dalia MT Q2H PRN PRN Reason: Sore Throat Budesonide (Pulmicort Respules) 0.5 mg IH [id number] [facility] Heparin Sodium (Porcine) (Heparin) 5,000 units SC Q8 GO PRN Reason: Protocol Hydromorphone HCl (Dilaudid) 1 mg IVP Q4H PRN PRN Reason: Pain, severe (8-10) Last Admin: 03/18/17 13:43 Dose: 1 mg Dextrose/Sodium Chloride (Dextrose 5%/0.45% Ns 1000 Ml) 1,000 mls @ 150 mls/hr IV .Q6H40M [facility] Ondansetron HCl (Zofran Inj) 4 mg IVP Q6H PRN PRN Reason: Nausea/Vomiting Pantoprazole Sodium (Protonix Inj) 40 mg IVP DAILY [facility] Last Admin: 03/18/17 13:02 Dose: 40 mg Physical Exam - Constitutional Appears: In Acute Distress - Head Exam Head Exam: ATRAUMATIC, NORMAL INSPECTION, NORMOCEPHALIC - Eye Exam Eye Exam: EOMI, Normal appearance, PERRL Pupil Exam: NORMAL ACCOMODATION, PERRL - ENT Exam ENT Exam: Mucous Membranes Moist, Normal Exam - Neck Exam Neck exam: Positive for: Normal Inspection - Respiratory Exam Respiratory Exam: Clear to Auscultation Bilateral, NORMAL BREATHING PATTERN - Cardiovascular Exam Cardiovascular Exam: REGULAR RHYTHM - GI/Abdominal Exam GI & Abdominal Exam: Distended, Guarding, Hernia, Normal Bowel Sounds, Soft, Tenderness. absent: Mass, Rebound - Exam Exam: NORMAL INSPECTION - Extremities Exam Extremities exam: Positive for: normal inspection - Back Exam Back exam: NORMAL INSPECTION - Neurological Exam Neurological exam: Alert, CN II-XII Intact, Normal Gait, Oriented x3, Reflexes Normal - Skin Skin Exam: Diaphoretic, Intact, Normal Color, Warm Results - Vital Signs Recent Vital Signs: Last Vital Signs Temp 98.7 F 03/18/17 12:19 Pulse 70 03/18/17 12:19 Resp 18 03/18/17 12:19 BP 161/107 H 03/18/17 12:19 Pulse Ox 98 03/18/17 10:00 - Labs Result Diagrams: 03/18/17 04:20 03/18/17 04:20 Labs: Laboratory Results - last 24 hr 03/18/17 13:25 Troponin I < 0.01 Assessment & Plan - Assessment and Plan (Free Text) Assessment: Ventral hernia h/o asthma, polysubstance abuse, obesity, HTN because of multiple coormorbidity and polysubstance abuse including cocaine and heroine, pt is a high risk perioperatively. We will medically optimize prior to OR. Plan on OR on Tues AM Consent obtained. NPO IVF NGT to suction Cardiology/ Pulm rec appreciated Medical management DW Dr. Dennis
[2017-03-18] MEDS: Albuterol-Ipratrop 3 mg / 0.5 (3 ml) UD IH SCH ×2 (14:52→20:46)
--- NOTE | 2017-03-18 15:21 | RAD ---
HISTORY: R/o Pneumonia COMPARISON: 10/17/2014 FINDINGS: LUNGS: No active pulmonary disease. PLEURA: No significant pleural effusion identified, no pneumothorax apparent. CARDIOVASCULAR: Cardiomegaly. No evidence of acute, significant cardiovascular disease. OSSEOUS STRUCTURES: No significant abnormalities. VISUALIZED UPPER ABDOMEN: Normal. OTHER FINDINGS: None. IMPRESSION: No active disease. No significant interval change compared to the prior examination(s).
--- NOTE | 2017-03-18 16:31 | CP.PCM.PCO ---
Physician Communication Note - Physician Communication Note Physician Communication Note: Hernia reduced/Pt withdrawing from opiates now
[2017-03-18] MEDS ORDERED: HYDROmorphone 0.5 mg/0.5 ml ISec IVP PRN (16:34)
[2017-03-18 17:03] LABS: ARTERIAL BLOOD GAS HCO3 29.7 mmol/L (21-28); ARTERIAL BLOOD GAS O2 SAT 90.1 % (95-98); ARTERIAL BLOOD GAS PCO2 48 mm/Hg (35-45); ARTERIAL BLOOD GAS TCO2 31.2 mmol.L (22-28)
[2017-03-18] MEDS: metroNIDAZOLE IV 250mg/50 ml 250 MG/50 ML BAG IVPB SCH ×2 (17:19→21:41)
[2017-03-18] MEDS: Dextrose 5%/0.45% NS 1,000 ML IV SCH (17:32)
[2017-03-18] MEDS: HYDROmorphone 1 mg/ml ISec IVP PRN (18:10)
[2017-03-18 20:33] LABS: ARTERIAL BLOOD GAS HCO3 32.3 mmol/L (21-28); ARTERIAL BLOOD GAS O2 SAT 98.6 % (95-98); ARTERIAL BLOOD GAS PCO2 51 mm/Hg (35-45); ARTERIAL BLOOD GAS PH 7.41 (7.35-7.45); ARTERIAL BLOOD GAS TCO2 33.9 mmol.L (22-28)
[2017-03-18] MEDS: Budesonide 0.5 mg/2 ml Inhal Susp UD IH SCH (20:46)
--- NOTE | 2017-03-18 23:50 | CON ---
DATE:03/18/2017 REASON FOR CONSULTATION: Cardiomegaly. HISTORY OF PRESENT ILLNESS: The patient is a 52-year-old male who has a history of heroin abuse and history of umbilical hernia repair in the past. He presented because of abdominal pain and found to have incarcerated abdominal hernia. The patient denies any chest pain and is unaware of any history of heart attack in the past. SOCIAL HISTORY: The patient is a smoker and he is heroin abuser. He denies any alcohol abuse. REVIEW OF SYSTEMS: The patient reports diaphoresis and symptoms of withdrawal. He also reported bilateral leg swelling. MEDICATIONS: D5 half normal saline 100 mL an hour, Dilaudid 1 mg intravenously q.4 hours p.r.n., albuterol inhaler q.4 hours, heparin 5000 units q.8 hours, Protonix 40 mg intravenously daily, and Zofran 4 mg intravenously q.6 hours p.r.n. PHYSICAL EXAMINATION: GENERAL: The patient is a morbidly obese male, who does not appear to be in acute distress. VITAL SIGNS: Blood pressure 161/107, heart rate 70, temperature 98.7, and respirations 18. HEENT: Normocephalic. CHEST: Diminished breath sounds at the bases. HEART: S1 and S2 regular and distant. ABDOMEN: Distended with diminished bowel sounds and diffuse tenderness. EXTREMITIES: 2+ pitting edema. LABORATORY DATA: Hemoglobin and hematocrit 12.2 and 39.3, white count and platelet count are within normal limits. SMA-7 is within normal limits except for glucose of 117. Two sets of troponins are negative. Urine drug screen is positive for opioids and cocaine. PT, PTT, and INR are within normal limits. EKG revealed normal sinus rhythm with left axis deviation, 4-hour progression. Abdomen CT scan there is moderate fat-containing ventral abdominal wall hernia with surrounding bowel wall thickening, infiltration, and resultant small bowel obstruction suspicious. Small amount of free pelvic fluid. Chest x-ray revealed cardiomegaly with mild CHF. ASSESSMENT: 1. Incarcerated umbilical hernia. 2. Cardiomegaly with evidence of congestive heart failure. 3. Cocaine and heroin abuse, currently in withdrawal symptoms. RECOMMENDATIONS: The patient is currently on nasogastric tube suction and no oral medications could be administered. Continue IV hydration, subcutaneous heparin, bronchodilator, and IV Dilaudid; however, if the patient has any signs of volume overload, consider reducing IV fluid and administering intravenous Lasix. I will obtain an echocardiogram. The patient will be transferred to telemetry at the time I am dictating this consult. Zac Stephenson MD
--- NOTE | 2017-03-19 00:12 | CON ---
DATE: 03/18/2017 HISTORY OF PRESENT ILLNESS: This 52-year-old gentleman with a history of recurrent ventral hernia status post surgery a while ago, hypertension, tobacco use and cocaine/heroin abuse who presented to the hospital with subacute onset of abdominal pain around the side of the ventral hernia. In the emergency room, NG tube was placed and put on suction. No fever, no chills, no sweats. No constipation, no diarrhea. It appears that the patient had a flatus past yesterday. Subsequent CT scan of the abdomen revealed moderate fat-containing ventral abdominal wall hernia. There is a bowel containing ventral abdominal wall hernia as well with surrounding bowel wall thickening infiltration and small bowel obstruction suspicious for incarcerated ventral hernia. Small amount of free pelvic fluid. In the lower thorax, there were bibasilar right more than left nonspecific infiltrates consistent with atelectasis or pneumonia; however, those are nonspecific. Pulmonary consult was called to optimize pulmonary status prior to procedure. Patient reports daytime asthma symptoms approximately every other day (wheezing , SOB) requiring albuterol inhalers and once a week nighttime asthma symptoms. Not on ICS, denies hospital admission for asthma exacerbation during last year and never being intubated for asthma exacerbation in the past. Patient is a smoker and has chronic productive cough 4 days a week mostly in the morning with brownish phlegm, Patient however never being diagnosed formally with COPD before. He snores, tired during the daytime, has HTN, never being diagnosed with BENNY before, morbidly obese, has obese neck, thus having more then 3 points on STOP-BANG questionnaire PAST MEDICAL HISTORY: Ventral hernia, asthma, hypertension. ALLERGIES: NKDA. HOME MEDICATIONS: Oxycodone and albuterol inhaler. REVIEW OF SYSTEMS: Review of 12-point system other than mentioned in history of present illness is negative. FAMILY HISTORY: Noncontributory. SOCIAL HISTORY: The patient is cocaine and opioid drug abuser. He is active smoker. He smokes about half pack a day. No alcohol abuse. PHYSICAL EXAMINATION: VITAL SIGNS: Temperature 98.7, blood pressure 161/107, respiratory rate 18, oxygen saturation 98% on room air, heart rate 70. ENT: Head and neck atraumatic. LUNGS: Clear to auscultation bilaterally. HEART: Regular rate and rhythm. S1, S2 normal. ABDOMEN: Soft, tender in the ventral hernia area. It is reducible. There is no rebound tenderness. There is no voluntary or involuntary guarding. NEUROLOGIC: The patient moves all extremities spontaneously. SKIN: Skin color is moist. PSYCHIATRIC: The patient has [id number] distress due to abdominal tenderness/pain. LABORATORY DATA: WBC 6.6, hemoglobin 12.2, platelet count 302. Sodium 140, potassium 3.8, chloride 103, carbon dioxide 30, BUN 9, creatinine 0.8 down to 1, glucose 117, AST 26, ALT 25. Troponin less than 0.01, lipase 20, albumin 3.6, bilirubin 0.2. INR 1. Drug screen positive for opioids and cocaine. MEDICATIONS: Started in the hospital include DuoNeb p.r.n., and the patient was just started on albuterol every 6 hours, budesonide, D5 half-normal saline 100 mL/hour, Protonix. CHEST X-RAY: Revealed some vascular congestion, questionable cardiomegaly, no distinct infiltrate; however, costophrenic angle on the left side is cutoff. Abdomen and pelvis CT scan revealed moderate fat-containing ventral abdominal wall hernia. Bowel containing ventral abdominal wall hernia with surrounding bowel wall thickening, infiltration, and result of small bowel obstruction suspicious for incarcerated ventral hernia. EKG showed normal sinus rhythm, left axis deviation. ASSESSMENT AND PLAN: This 52-year-old gentleman with multiple risk factors for postoperative pulmonary complications, including active smoking status, suboptimally treated and suboptimally controlled asthma and likely yet undiagnosed COPD and BENNY in the setting of morbid obesity and likely restrictive lung physiology related to obesity. Thus patient would be very high risk for postoperative pulmonary complications. However if he needs surgery emergently for life saving indications (as per surgical assessment), risk of PPC should not be a limiting factor. At present time I will start patient on ICS, anticholinergic bronchodilators and bronchodilators on PRN basis. Immediate smoking cessation is highly recommended. ABG showed borderline hypoxemia and compensated respiratory acidosis. He needs oxygen supplementation to maintain 02sat>93 and NIPPV at night. Would avoid benzos and opiates in preop period. Echocardiogram was ordered to assess RV function, RVSP and LV function. Cardiology consult was also requested. Ideally in non-emergent situation tobacco smoking abstinence and use of CPAP or BPAP at night would be recommended for at least 6-8 weeks prior to scheduled/non-emergent surgery, however in emergent situation this should not be a limiting factor for life saving procedure. Anesthesiology pre- op eval in anticipation of difficult airways is indicated. Endotracheal intubation during surgery would be recommended. Low tidal ventilation during andominal surgery may also decrease risk if PPC. Avoiding if possible general anesthesia in favor of local whenever possible (if possible) should be considered. Full reversal of NMB and sedation before extubation is recommended. Extubation should be done to BPAP or CPAP. Aggressive pulmonary toilet and optimization of mucocilliary clearance is recomended: IS, chest PT, early mobilization, postural drainage, avoiding respiratory suppresants and optimizing pain control. DVT/GI prophylaxis. Maintaining euvolemia, euglycemia and 02sat>93 percent is recommended. Once more stable, would need PFTs, sleep studies. Of note patient does not have leukocytosis and fever, thus whether or not start antibiotics will defer to primary team. Jose Cason MD [facility]
[2017-03-19] MEDS: HYDROmorphone 1 mg/ml ISec IVP PRN ×5 (01:11→21:40)
[2017-03-19] MEDS: Dextrose 5%/0.45% NS 1,000 ML IV SCH (01:14)
[2017-03-19] MEDS: Albuterol-Ipratrop 3 mg / 0.5 (3 ml) UD IH SCH ×4 (03:10→20:42)
[2017-03-19] MEDS: metroNIDAZOLE IV 250mg/50 ml 250 MG/50 ML BAG IVPB SCH ×4 (05:01→21:26)
[2017-03-19 06:58] LABS: EOS % 0.1 % (1.5-5.0); GRAN # 11.23 (1.4-6.5); GRAN % 89.8 % (50.0-68.0); LYMPH # 0.4 (1.2-3.4); MEAN CELL VOLUME 84.7 fl (80.0-105.0); MEAN CORPUSCULAR HEMOGLOBIN 27.1 pg (25.0-35.0); MEAN PLATELET VOLUME 8.8 fl (7.0-11.0); MONO # 0.9 (0.1-0.6); MONO % 7.1 % (1.0-6.0); PLATELET COUNT 329 10^3/uL (120.0-450.0); RBC 5.54 10^6/uL (3.5-6.1); RED CELL DISTRIBUTION WIDTH 15.8 % (11.5-14.5); WHITE BLOOD COUNT 12.5 10^3/ul (4.5-11.0)
--- NOTE | 2017-03-19 07:44 | CP.PCM.PN ---
Subjective - Date & Time of Evaluation Date of Evaluation: 03/19/17 Time of Evaluation: 07:00 - Subjective Subjective: Surgery Progress note. Dr. Dennis Pt seen and examined at bedside. No acute events overnight. Denies any flatus or BM. Still c/o abd pain. NGT in place with bilious output. No F/C. One episode of emesis reported last night. No new complaints. Objective - Vital Signs/Intake and Output Vital Signs (last 24 hours): Temp Pulse Resp BP Pulse Ox 98.3 F 106 H 20 169/106 H 97 03/19/17 06:00 03/19/17 06:00 03/19/17 06:00 03/19/17 06:00 03/19/17 06:00 Intake and Output: 03/19/17 03/19/17 06:59 18:59 Intake Total 2200 Output Total 800 Balance 1400 - Medications Medications: Current Medications Albuterol/Ipratropium (Duoneb 3 Mg/0.5 Mg (3 Ml) Ud) 3 ml IH [id number] PRN PRN Reason: Wheezing Albuterol/Ipratropium (Duoneb 3 Mg/0.5 Mg (3 Ml) Ud) 3 ml IH [id number] [facility] Last Admin: 03/19/17 03:10 Dose: 3 ml Benzocaine/Menthol (Cepacol Sore Throat) 1 dalia MT Q2H PRN PRN Reason: Sore Throat Budesonide (Pulmicort Respules) 0.5 mg IH [id number] [facility] Last Admin: 03/18/17 20:46 Dose: 0.5 mg Clonidine HCl (Catapres-Tts2 0.2 Mg/24 Hr) 1 patch TD Q7D@1000 GO Last Admin: 03/18/17 18:11 Dose: 1 patch Heparin Sodium (Porcine) (Heparin) 5,000 units SC Q8 GO PRN Reason: Protocol Last Admin: 03/19/17 05:01 Dose: 5,000 units Hydromorphone HCl (Dilaudid) 1 mg IVP Q2H PRN PRN Reason: withdrawl Last Admin: 03/19/17 05:01 Dose: 1 mg Dextrose/Sodium Chloride (Dextrose 5%/0.45% Ns 1000 Ml) 1,000 mls @ 150 mls/hr IV .[id number] [facility] Last Admin: 03/19/17 01:14 Dose: 150 mls/hr Metronidazole (Flagyl) 250 mg in 50 mls @ 100 mls/hr IVPB Q8 GO PRN Reason: Protocol Stop: 03/23/17 15:01 Last Admin: 03/19/17 05:01 Dose: 100 mls/hr Ceftriaxone Sodium 250 mg/ (Sodium Chloride) 50 mls @ 30 mls/hr IVPB DAILY GO PRN Reason: Protocol Last Admin: 03/18/17 19:38 Dose: 30 mls/hr Ondansetron HCl (Zofran Inj) 4 mg IVP Q6H PRN PRN Reason: Nausea/Vomiting Last Admin: 03/19/17 00:05 Dose: 4 mg Pantoprazole Sodium (Protonix Inj) 40 mg IVP DAILY [facility] Last Admin: 03/18/17 13:02 Dose: 40 mg - Labs Labs: 03/19/17 06:00 PT 10.9 SECONDS (9.4-12.5) 03/18/17 04:20 INR 1.00 (0.93-1.08) 03/18/17 04:20 APTT 29.6 Seconds (25.1-36.5) 03/18/17 04:20 - Constitutional Appears: Non-toxic, No Acute Distress - Head Exam Head Exam: ATRAUMATIC, NORMAL INSPECTION, NORMOCEPHALIC - Eye Exam Eye Exam: EOMI - ENT Exam ENT Exam: Mucous Membranes Moist - Respiratory Exam Respiratory Exam: NORMAL BREATHING PATTERN. absent: Accessory Muscle Use, Respiratory Distress - GI/Abdominal Exam GI & Abdominal Exam: Hernia (midline hernia appreciated. ). absent: Guarding, Rebound Additional comments: moderate distended. Soft. - Extremities Exam Extremities Exam: Normal Inspection. absent: Calf Tenderness - Neurological Exam Neurological Exam: Alert, Awake, Oriented x3 - Skin Skin Exam: Dry, Intact, Normal Color, Warm Assessment and Plan - Assessment and Plan (Free Text) Assessment: 52yo M with recurrent ventral hernia - Hx of polysubstance abuse noted. Will medically optimize prior to OR - Possible OR 03/20 - Maintain NPO - IVF - Pain Management - NGT to suction - Strict Is & Os - Monitor for bowel fxn Further recs as per Dr. Sonny Mason PGY1 surgery pager: [phone]
[2017-03-19 07:57] LABS: ALB/GLOB RATIO 1.1 (1.1-1.8); ALT/SGPT 23 U/L (7-56); AST/SGOT 22 U/L (17-59); BLOOD UREA NITROGEN 8 mg/dL (7-21); CALCIUM 9.1 mg/dL (8.4-10.5); GFR AFRICAN-AMERICAN > 60; GFR NON-AFRICAN AMERICAN > 60
[2017-03-19] MEDS: Budesonide 0.5 mg/2 ml Inhal Susp UD IH SCH ×2 (08:22→20:42)
[2017-03-19 08:27] LABS: LYMPHOCYTE 3 % (22.0-35.0); NEUTROPHIL 73 % (50.0-70.0)
[2017-03-19 08:28] LABS: MONOCYTE 4 % (1.0-6.0); PLATELET ESTIMATE NORMAL (NORMAL)
[2017-03-19 08:29] LABS: BAND 20 % (0-2); TOXIC GRANULATION 1+
[2017-03-19] MEDS ORDERED: Etomidate 20 mg/10ml Inj IV ONE (12:41)
[2017-03-19] MEDS ORDERED: Phenylephrine 10 mg/ml Inj ONE (12:41)
[2017-03-19] MEDS ORDERED: Propofol 10 mg/ml Inj (20 ML) ONE ×2 (12:41→15:26)
[2017-03-19] MEDS ORDERED: Succinylcholine 200 mg/10 ml Inj IV ONE (12:41)
[2017-03-19] MEDS ORDERED: Rocuronium 10 mg/ml (5 ml) ONE ×2 (12:44→14:20)
[2017-03-19] MEDS ORDERED: HYDROmorphone 1 mg/ml ISec ONE (13:17)
[2017-03-19] MEDS ORDERED: Midazolam 2 MG/2 ML VIAL ONE ×2 (13:37→15:13)
[2017-03-19] MEDS ORDERED: MetroNIDAZOLE 500 mg/100 ml IVPB ONE (13:50)
[2017-03-19] MEDS ORDERED: metroNIDAZOLE IV 500 mg/100 ml 500 MG/100 ML BAG ONE (13:52)
[2017-03-19] MEDS ORDERED: Oxychlorosene Topical 2 gm Packet TOP ONE (13:56)
--- NOTE | 2017-03-19 13:59 | PN ---
DATE: He is admitted on 03/18/2017 to room 367, bed 2. SUBJECTIVE: On admission, this patient presents with a one to one and half day history of tender reducible incisional hernia at the site of a previously ruptured umbilical hernia mesh repair. He was seen 8 months early by this physician and recommended for weight loss and cleaning up his act regarding his drugs. On admission, he admits to taking oxycodone 30 mg 4 times a day and with significant further questioning, it is apparent that he is taking cocaine, methadone of in described amount and heroin, each interview will get him to admit to a different amount and through this utility bill complaints investigator, he says he has taken 15 bags in the last day. The patient's last bowel movement was one day earlier and he gas not passed gas since yesterday morning and with the withdrawal from the opioid since he has been in the ER and the reduction of the hernia, it was elected to place the nasogastric tube and hydrate the patient and cover him with the withdrawal. The Intensive Care Unit hr business partner consultant has seen him and feels that his chronic emphysema and asthmatic bronchitis is not well controlled as he takes Aerosol inhalation daily and both the leaf stripper and his hr business partner consultant surgeon feel urgent surgery on the would be too risky. We hope to rehydrate him and get him better by the and he is tentatively reserved a place at that time. Today on the , he still has localizing tenderness despite the hernia being reduced. He has an absence of flatus and nasogastric tube is draining fairly well with bilious liquid approximately 550 to 600 mL and his white count doubles from 6,000 to 12,500 with 20 bands. The opioid withdrawal has been controlled by Dilaudid 1 mg IV q. 2 hours and it is hoped at this point that an urgent operation to prevent partial ischemia bowel can be corrected, and the patient can tolerate all these complications and problems. Extreme risk is involved and the patient's and the patient himself are fully aware of this and agree to change in the plan and urgent surgery today on . Risks, benefits and the alternatives with their anticipated outcomes were discussed with the patient, and he has already signed the informed consent for this procedure. The operating team has now called and planned for 12:30 p.m. on 03/19/2017. This dictation will be electronically signed without being read. Melvin Dennis MD [facility] # [id number]
--- NOTE | 2017-03-19 14:33 | CP.PCM.PN ---
<Paulina Zelaya - Last Filed: 03/19/17 14:24> Subjective - Date & Time of Evaluation Date of Evaluation: 03/19/17 Time of Evaluation: 14:24 - Subjective Subjective: Paulina Zelaya, PGY1, Medicine Progress Note for Dr Napoles: Patient seen and examined at bedside. Patient refused bipap at night after some time and switched to ventimask. Pt remains NPO, had 2 frothy, green emesis overnight, 550 ml bilious NGT output, complains of severe diffuse abdominal pain this AM. Denies fever, chills, hemtochezia. Pt has not been passing flatus or BM since prior to his admission here. Objective - Vital Signs/Intake and Output Vital Signs (last 24 hours): Temp Pulse Resp BP Pulse Ox 98.3 F 101 H 20 169/106 H 97 03/19/17 08:27 03/19/17 08:27 03/19/17 08:27 03/19/17 08:27 03/19/17 08:27 Intake and Output: 03/19/17 03/19/17 06:59 18:59 Intake Total 2200 0 Output Total 800 300 Balance 1400 -300 - Medications Medications: Current Medications Albuterol/Ipratropium (Duoneb 3 Mg/0.5 Mg (3 Ml) Ud) 3 ml IH [id number] PRN PRN Reason: Wheezing Albuterol/Ipratropium (Duoneb 3 Mg/0.5 Mg (3 Ml) Ud) 3 ml IH [id number] [facility] Last Admin: 03/19/17 14:16 Dose: Not Given Benzocaine/Menthol (Cepacol Sore Throat) 1 dalia MT Q2H PRN PRN Reason: Sore Throat Budesonide (Pulmicort Respules) 0.5 mg IH [id number] [facility] Last Admin: 03/19/17 08:22 Dose: 0.5 mg Clonidine HCl (Catapres-Tts2 0.2 Mg/24 Hr) 1 patch TD Q7D@1000 [facility] Last Admin: 03/18/17 18:11 Dose: 1 patch Heparin Sodium (Porcine) (Heparin) 5,000 units SC Q8 [facility] PRN Reason: Protocol Last Admin: 03/19/17 05:01 Dose: 5,000 units Hydromorphone HCl (Dilaudid) 1 mg IVP Q2H PRN PRN Reason: withdrawl Last Admin: 03/19/17 09:36 Dose: 1 mg Dextrose/Sodium Chloride (Dextrose 5%/0.45% Ns 1000 Ml) 1,000 mls @ 150 mls/hr IV .Q6H40M [facility] Last Admin: 03/19/17 01:14 Dose: 150 mls/hr Metronidazole (Flagyl) 250 mg in 50 mls @ 100 mls/hr IVPB Q8 [facility] PRN Reason: Protocol Stop: 03/23/17 15:01 Last Admin: 03/19/17 05:01 Dose: 100 mls/hr Ceftriaxone Sodium 250 mg/ (Sodium Chloride) 50 mls @ 30 mls/hr IVPB DAILY [facility] PRN Reason: Protocol Last Admin: 03/19/17 09:47 Dose: 30 mls/hr Ondansetron HCl (Zofran Inj) 4 mg IVP Q6H PRN PRN Reason: Nausea/Vomiting Last Admin: 03/19/17 00:05 Dose: 4 mg Pantoprazole Sodium (Protonix Inj) 40 mg IVP DAILY [facility] Last Admin: 03/19/17 09:46 Dose: 40 mg - Labs Labs: 03/19/17 06:00 03/19/17 06:00 PT 10.9 SECONDS (9.4-12.5) 03/18/17 04:20 INR 1.00 (0.93-1.08) 03/18/17 04:20 APTT 29.6 Seconds (25.1-36.5) 03/18/17 04:20 - Constitutional Appears: In Acute Distress, Other (morbidly obese male) - Head Exam Head Exam: ATRAUMATIC, NORMOCEPHALIC - Eye Exam Eye Exam: EOMI, PERRL. absent: Conjunctival injection, Scleral icterus Pupil Exam: NORMAL ACCOMODATION, PERRL - ENT Exam ENT Exam: Mucous Membranes Moist - Neck Exam Neck Exam: Full ROM - Respiratory Exam Respiratory Exam: Decreased Breath Sounds. absent: Accessory Muscle Use, Respiratory Distress Additional comments: on ventimask - Cardiovascular Exam Cardiovascular Exam: Tachycardia, +S1, +S2. absent: Murmur - GI/Abdominal Exam GI & Abdominal Exam: Distended, Firm, Tenderness, Diminished Bowel Sounds. absent: Guarding, Mass, Rebound - Extremities Exam Extremities Exam: absent: Calf Tenderness, Pedal Edema - Back Exam Back Exam: NORMAL INSPECTION - Neurological Exam Neurological Exam: Alert, Awake, Oriented x3 - Psychiatric Exam Psychiatric exam: Anxious, Normal Affect - Skin Skin Exam: Dry, Normal Color, Warm Assessment and Plan - Assessment and Plan (Free Text) Assessment: 52 yo male whose past medical history includes HTN, ventral hernia, tobacco use , and asthma, presents to the ED c/o abdominal pain likely 2/2 suspicious incarcerated hernia and SBO. Abd pain 2/2 suspicious incarcerated hernia and resultant SBO - NPO - pain control - Zofran PRN - Cont IV fluids D5 1/2 NS @ 100 - CT abd/pelvis: moderate fat containing ventral abdominal wall hernia. There is bowel containing ventral abdominal wall hernia with surrounding bowel wall thickening infiltration and resultant small bowel obstruction, suspicious for incarcerated ventral hernia. Small amount of free pelvic fluid. - Cardiology and Pulm Consulted for surgery clearance and recs. Appreciate recs. - leukocytosis today 6.6-> 12.5 with 20 bands, tachycardic and has severe abdominal pain (unrelieved with dilaudid pain regimen) with bilious emesis today. - Surgery consulted. Scheduled for surgery this afternoon with Dr. Dennis. Even thought patient is an active smoker, cocaine/heroin abuser, chronic emphysema/asthmatic bronchitis, high risk cardiac patient, Dr Zuñiga explained the risks and benefits of surgery to the patient and his . Pt opted for surgery. - Will be transferred from OR to ICU, Dr Cason aware. - trend daily cbc, cmp. - C/w IV abx Flagyl and Rocephin Hypoxia 2/2 likely chronic emphysema/COPD, chronic bronchitis vs sepsis vs BENNY vs asthma exacerbation vs CHF exacerbation - ABG yesterday showed pO2 48 on RA, switched to bipap, then to ventimask. - Repeat ABG on bipap shows pO2 88 on 50% FiO2. - Mild crackles on resp exam in lower lobes. Given Lasix 40 mg IV x1. - On rocephin - Follow up echocardiogram. - Cont to closely monitor Asthma - Duonebs q6h preston, Duonebs Q4H PRN - Pulmicort - Cont to monitor Hx of HTN - On clonidine patch - Cont to monitor Hx of Drug/tobacco/etoh abuse: - Utox + Cocaine, and opiods - Received 10 mg Methadone yesterday for withdrawal symptoms - Cont to monitor for withdrawals - Advised patient on alcohol/smoking and drug cessation. GI/DVT px - Protonix and Hep Sq Case and plan was reviewed and discussed in detail with Dr Napoles. <Zheng Napoles - Last Filed: 03/19/17 17:29> Objective - Vital Signs/Intake and Output Vital Signs (last 24 hours): Temp Pulse Resp BP Pulse Ox 98.4 F 120 H 18 138/85 96 03/19/17 15:26 03/19/17 16:39 03/19/17 15:56 03/19/17 15:56 03/19/17 15:56 Intake and Output: 03/19/17 03/19/17 06:59 18:59 Intake Total 2200 0 Output Total 800 300 Balance 1400 -300 - Medications Medications: Current Medications Albuterol/Ipratropium (Duoneb 3 Mg/0.5 Mg (3 Ml) Ud) 3 ml IH [id number] PRN PRN Reason: Wheezing Albuterol/Ipratropium (Duoneb 3 Mg/0.5 Mg (3 Ml) Ud) 3 ml IH [id number] [facility] Last Admin: 03/19/17 14:16 Dose: Not Given Benzocaine/Menthol (Cepacol Sore Throat) 1 dalia MT Q2H PRN PRN Reason: Sore Throat Budesonide (Pulmicort Respules) 0.5 mg IH [id number] [facility] Last Admin: 03/19/17 08:22 Dose: 0.5 mg Clonidine HCl (Catapres-Tts2 0.2 Mg/24 Hr) 1 patch TD Q7D@1000 [facility] Last Admin: 03/18/17 18:11 Dose: 1 patch Heparin Sodium (Porcine) (Heparin) 5,000 units SC Q8 [facility] PRN Reason: Protocol Last Admin: 03/19/17 05:01 Dose: 5,000 units Hydromorphone HCl (Dilaudid) 1 mg IVP Q2H PRN PRN Reason: withdrawl Last Admin: 03/19/17 09:36 Dose: 1 mg Hydromorphone HCl (Dilaudid) 1 mg IVP Q15M PRN PRN Reason: Pain, moderate (4-7) Stop: 03/19/17 17:56 Metronidazole (Flagyl) 250 mg in 50 mls @ 100 mls/hr IVPB Q8 [facility] PRN Reason: Protocol Stop: 03/23/17 15:01 Last Admin: 03/19/17 05:01 Dose: 100 mls/hr Ceftriaxone Sodium 250 mg/ (Sodium Chloride) 50 mls @ 30 mls/hr IVPB DAILY [facility] PRN Reason: Protocol Last Admin: 03/19/17 09:47 Dose: 30 mls/hr Propofol (Diprivan) 1,000 mg in 100 mls @ 4.744 mls/hr IV .Q21H5M PRN; Protocol ; 5 MCG/KG/MIN PRN Reason: TITRATE PER MD ORDER Lactated Ringer's (Lactated Ringer's) 1,000 mls @ 150 mls/hr IV .Q6H40M [facility] Dexmedetomidine HCl (Precedex 4 Mcg/Ml (100 Ml)) 400 mcg in 100 mls @ 7.906 mls /hr IV .[id number] PRN; Protocol; 0.2 MCG/KG/HR PRN Reason: Agitation Fentanyl Citrate (Fentanyl Citrate/Sodium Chloride 1 Mg/100 Ml) 1,000 mcg in 100 mls @ 7.5 mls/hr IV .[id number] PRN; Protocol; 75 MCG/HR PRN Reason: TITRATE PER MD ORDER Ondansetron HCl (Zofran Inj) 4 mg IVP Q6H PRN PRN Reason: Nausea/Vomiting Last Admin: 03/19/17 00:05 Dose: 4 mg Pantoprazole Sodium (Protonix Inj) 40 mg IVP DAILY [facility] Last Admin: 03/19/17 09:46 Dose: 40 mg - Labs Labs: 03/19/17 16:15 03/19/17 06:00 PT 10.9 SECONDS (9.4-12.5) 03/18/17 04:20 INR 1.00 (0.93-1.08) 03/18/17 04:20 APTT 29.6 Seconds (25.1-36.5) 03/18/17 04:20 Attending/Attestation - Attestation I have personally seen and examined this patient.: Yes I have fully participated in the care of the patient.: Yes I have reviewed all pertinent clinical information, including history, physical exam and plan: Yes Notes (Text): 03/19/17 17:26 Patient was seen and examined with medical assistant instructor. Agreed with resident assessment and plan. 52 yrs male whose past medical history includes HTN, Obesity, Drug abuse , , and asthma, presents to the ED c/o abdominal pain likely 2/2 suspicious incarcerated hernia and SBO.Patient was evaluated by surgery again today and was taken to OR for surgery.After the surgery, patient was transferred to ICU.He is intubated and is on mechanical ventilation.ICU is following.We will continue Rocephin and Flagyl.
[2017-03-19] MEDS ORDERED: Bupivacaine 0.25% Inj(30mL) ONE (14:35)
[2017-03-19] MEDS ORDERED: Bupivacaine 0.5% Inj(30mL) ONE (14:35)
--- NOTE | 2017-03-19 14:45 | PN ---
DATE: SUBJECTIVE: The patient is still experiencing abdominal discomfort. PHYSICAL EXAMINATION: VITAL SIGNS: Blood pressure 169/106, heart rate 101, temperature 98.3, respirations 20. HEENT: Normocephalic. CHEST: Minimal rhonchi. HEART: S1 and S2 regular. EXTREMITIES: 2+ pitting edema. LABORATORY DATA: Hemoglobin and hematocrit 15 and 46.9, white count 12.5, and platelet count 329,000. Today's SMA-7 is within normal limits except for glucose of 175 and chloride of 97. Two sets of troponins are negative. ASSESSMENT: 1. Incarcerated ventral hernia. 2. Cocaine abuse. 3. Opioid withdrawal. RECOMMENDATIONS: Continue current clonidine patch. We will continue IV Rocephin at 250 mg daily. Continue IV Flagyl at 250 mg q. 8 hours, subcutaneous heparin 5000 units q. 8 hours. Awaiting echocardiography study; however, if surgery urgent, the patient can undergo surgery with follow up in either ICU, Telemetry depending on the clinical postoperative status. Zac Stephenson MD
[2017-03-19] MEDS ORDERED: Neostigmine Methylsulfate 3mg/3ml Syringe IV ONE (15:20)
[2017-03-19] MEDS ORDERED: Propofol 10 mg/ml 2,000 MG/200 ML VIAL ONE (15:22)
--- NOTE | 2017-03-19 15:30 | PCM.SURG1 ---
Surgeon's Initial Post Op Note - Surgeon's Notes Surgeon: Dr. Dennis Wheel Truing Machine Tender: Isabella PGY1 Type of Anesthesia: General Endo, Block Regional Pre-Operative Diagnosis: Incarcerated Ventral Hernia Operative Findings: Ventral Hernia x2 with one unreduced hernia with a loop of incarcerated Small bowel. See Operative report. Post-Operative Diagnosis: same Operation Performed: Exploratory Laparotomy; Reduction of Small bowel incarceration. Ventral hernia x2 repair with mesh Specimen/Specimens Removed: none Estimated Blood Loss: EBL {In ML}: 50 Blood Products Given: N/A Drains Used: [place] Post-Op Condition: Good Date of Surgery/Procedure: 03/19/17 Time of Surgery/Procedure: 15:29
[2017-03-19] MEDS ORDERED: Propofol 10 mg/ml Inj (100 ml) IV ONE (15:40)
[2017-03-19] MEDS ORDERED: HYDROmorphone 1 mg/ml ISec IVP PRN (15:55)
--- NOTE | 2017-03-19 16:06 | PCM.ANESB5 ---
Transverse Abdominis Block - Transverse Abdominis Plane Date of Procedure: 03/19/17 Anesthesiologist: Prudence Pre-Procedure Diagnosis: Incarcerated Ventral hernia Post-Procedure Diagnosis: Incarcerated ventral and umbilical hernias Procedure Performed: Transverse Abdominis Plane Nerve Block Left, Transverse Abdominis Plane Nerve Block Right - Procedure Transverse Abdominis Plane Nerve Block: The procedure was explained to the patient that it is for post-operative pain management and would be performed after surgery. Consent was obtained prior to surgery after a thorough discussion with the patient regarding the benefits and possible complications of transverse abdominis plane block. After the surgery had concluded and before the patient emerged from general anesthesia, time-out was held with the circulating nurse to re-confirm the appropriate block. With the patient in supine position, the ultrasound probe was placed transverse to the abdominal wall at the mid-axillary line above the iliac crest of the appropriate side. The skin, subcutaneous tissue, fat, external oblique muscle, internal oblique muscle, and the transverse abdominis muscle were identified. The general area of the block site was then prepped with Betadine three times. At this point, a # 21-gauge Stimuplex 4-inch needle was inserted posterior to and in plane with the ultrasound probe and directed anteriorly. Needle was advanced under direct ultrasound visualization until it reached the plane between the internal oblique and transverse abdominis muscles. After appropriate placement, 2mL of local anesthetic solution was injected. When the transverse abdominis plane was observed expanding in an ellipsoid way, the rest of the solution was slowly injected. A total of __40____ mL of __0.25___ % ____ bupivicaine with 1:200,000 epinephrine was used for this block. The needle was then removed and sterile dressing was applied. Similarly, the same procedure was performed on the other side using the same medications. The patient had stable vital signs throughout and had no untoward complications after emergence from general anesthesia in the recovery room.
[2017-03-19] MEDS ORDERED: Fentanyl 1000mcg/100ml NS 1,000 MCG/100 ML BAG IV PRN (16:15)
[2017-03-19 16:29] LABS: VENOUS BLOOD GAS BASE EXCESS 2.1 mmol/L (0.0-2.0); VENOUS BLOOD GAS PO2 48 mm/Hg (30-55); VENOUS BLOOD PH 7.35 (7.32-7.43)
[2017-03-19 16:33] LABS: GRAN # 5.28 (1.4-6.5); GRAN % 79.8 % (50.0-68.0); HEMOGLOBIN 14.3 g/dL (14.0-18.0); LYMPH # 0.8 (1.2-3.4); MEAN CELL VOLUME 83.4 fl (80.0-105.0); MEAN CORPUSCULAR HGB CONC 32.4 g/dl (31.0-37.0); MEAN PLATELET VOLUME 8.6 fl (7.0-11.0); MONO # 0.5 (0.1-0.6); MONO % 8.2 % (1.0-6.0); RBC 5.3 10^6/uL (3.5-6.1); RED CELL DISTRIBUTION WIDTH 15.4 % (11.5-14.5); WHITE BLOOD COUNT 6.6 10^3/ul (4.5-11.0)
--- NOTE | 2017-03-19 16:44 | RAD ---
HISTORY: Hypoxemia. Portable study 16:28 COMPARISON: 03/18/2017 FINDINGS: LUNGS: New right lower lobe infiltrate. PLEURA: No significant pleural effusion identified, no pneumothorax apparent. CARDIOVASCULAR: Cardiomegaly. No evidence of acute, significant cardiovascular disease. OSSEOUS STRUCTURES: No significant abnormalities. VISUALIZED UPPER ABDOMEN: Normal. OTHER FINDINGS: Satisfactory position of endotracheal tube and nasogastric tube. IMPRESSION: New right lower lobe infiltrate compared to the prior study.
[2017-03-19] MEDS: Lactated Ringer's 1,000 ML IV SCH ×2 (16:45→22:31)
[2017-03-19] MEDS: Dexmedetomidine HCl 4mcg/ml 400 MCG/100 ML BOTTLE IV PRN ×2 (16:45→21:30)
[2017-03-19] MEDS: Propofol 10 mg/ml 1,000 MG/100 ML VIAL IV PRN ×2 (16:50→19:13)
[2017-03-19 16:57] LABS: ARTERIAL BLOOD GAS HCO3 26.6 mmol/L (21-28); ARTERIAL BLOOD GAS O2 SAT 97.8 % (95-98); ARTERIAL BLOOD GAS PCO2 42 mm/Hg (35-45); ARTERIAL BLOOD GAS PH 7.41 (7.35-7.45); ARTERIAL BLOOD GAS TCO2 27.9 mmol.L (22-28)
[2017-03-19 17:32] LABS: ALBUMIN 3.5 g/dL (3.0-4.8); ALT/SGPT 22 U/L (7-56); AST/SGOT 26 U/L (17-59); BLOOD UREA NITROGEN 10 mg/dL (7-21); CALCIUM 8.6 mg/dL (8.4-10.5); GFR AFRICAN-AMERICAN > 60; GFR NON-AFRICAN AMERICAN > 60
[2017-03-19 17:35] LABS: TROPONIN I < 0.01 ng/mL
[2017-03-19 17:43] LABS: MAGNESIUM 1.3 mg/dL (1.7-2.2)
[2017-03-19 20:49] LABS: ARTERIAL BLOOD GAS HCO3 28.5 mmol/L (21-28); ARTERIAL BLOOD GAS O2 SAT 97.3 % (95-98); ARTERIAL BLOOD GAS PCO2 42 mm/Hg (35-45); ARTERIAL BLOOD GAS PH 7.44 (7.35-7.45); ARTERIAL BLOOD GAS TCO2 29.8 mmol.L (22-28)
[2017-03-19 20:56] LABS: VENOUS BLOOD GAS BASE EXCESS 6.9 mmol/L (0.0-2.0); VENOUS BLOOD GAS PO2 99 mm/Hg (30-55); VENOUS BLOOD PH 7.45 (7.32-7.43)
--- NOTE | 2017-03-19 22:51 | PN ---
DATE: 03/19/2017 SUBJECTIVE: Patient seen and examined at bedside. He is intubated after surgery. He has ex lap with reduction of two ventral hernias. He is on pressure support 10/5 with FiO2 of 50%. His tidal volume varies between 500 and 600 and respiratory rate 18. This is despite the fact that he is on Precedex 1.5, propofol 50 and fentanyl 100 mcg per hour. OBJECTIVE: VITAL SIGNS: Heart rate 109, blood pressure 138/85, oxygen saturation 97% on 50% FiO2, temperature 98.4. HEENT: Head and neck atraumatic. LUNGS: Clear to auscultation bilaterally. HEART: Regular rate and rhythm. S1, S2 normal. ABDOMEN: Soft, nontender, nondistended. Postoperative scar present. MUSCULOSKELETAL: 1 to 2+ bilateral pedal and ankle edema. NEURO: The patient moves all extremities spontaneously. SKIN: Moist. PSYCH: Patient is sedated, however, easily arousable. LABORATORY DATA: WBC 6.6, hemoglobin 14.3, platelet count 288. Sodium 136, potassium 3.6, chloride 97, carbon dioxide 27, BUN 8, creatinine 0.8, glucose 175, AST 22, ALT 23. VBG showed pH 7.35, lactic acid 2.5. ABG is pending. MEDICATIONS: DuoNeb p.r.n. and every 6 hours, budesonide, clonidine patch, Precedex, fentanyl drip, Flagyl, heparin, Dilaudid p.r.n., lactated Ringer at 150 mL/hour, Zofran p.r.n., Protonix, ceftriaxone, and propofol. IMAGING: Chest x-ray showed new right lower lobe infiltrate. ASSESSMENT AND PLAN: This is a 52-year-old gentleman who presented with what appears to be incarcerated ventral hernias status post laparotomy with reduction of hernias. The patient did not have any resection or anastomosis. The patient was admitted to ICU after procedure for ventilatory management. The patient is very high risk for postoperative pulmonary complications. At present time, the patient is sedated and appears to be comfortable. We will proceed with sedation vacation, weaning trial and if passed extubation to BiPAP. Once the patient is extubated, we will proceed with incentive spirometry, chest PT, postural drainage, early embolization and physical therapy. We will continue with deep venous thrombosis and gastrointestinal prophylaxis. Heparin subcu was cleared by surgical team. We will continue with gastrointestinal prophylaxis. At present time, we will continue with head of bed elevated at >35 degrees. The patient has right lower lobe infiltrate. It appears that he vomited prior to intubation and that may represent aspiration pneumonitis. Echocardiogram is pending and if congestive heart failure present, we will proceed with gentle diuresis. At present time, the patient is on lactated Ringer at 125 mL per hour. The patient is on antibiotics. He is hemodynamically stable. His NG tube is still on suction. He is afebrile and does not have leukocytosis. We will maintain blood glucose within 140-180 range according to NICE-SUGAR trial. We avoid hypoglycemia. He has normal renal function. We will continue to monitor his urine output with a goal more than 0.5 mL/kg per hour. We will continue to maintain mean arterial pressure more than 70 and avoid nephrotoxic medication. We will continue with deep venous thrombosis and gastrointestinal prophylaxis. ccm time 40 min Jose Cason MD ANA[facility]
[2017-03-20] MEDS: HYDROmorphone 1 mg/ml ISec IVP PRN ×10 (01:08→22:34)
[2017-03-20] MEDS ORDERED: Labetalol 5 mg/ml Inj 20ML IV ONE ×4 (01:23→05:38)
[2017-03-20] MEDS: Albuterol-Ipratrop 3 mg / 0.5 (3 ml) UD IH SCH ×4 (02:50→20:33)
[2017-03-20] MEDS: metroNIDAZOLE IV 250mg/50 ml 250 MG/50 ML BAG IVPB SCH ×3 (06:14→22:20)
[2017-03-20 06:22] LABS: BASO # 0.01 K/mm3 (0.0-2.0); BASO % 0.1 % (0.0-3.0); EOS % 0.5 % (1.5-5.0); GRAN # 5.84 (1.4-6.5); GRAN % 73.2 % (50.0-68.0); HEMOGLOBIN 14.2 g/dL (14.0-18.0); LYMPH # 1.2 (1.2-3.4); LYMPH % 14.9 % (22.0-35.0); MEAN CELL VOLUME 82.9 fl (80.0-105.0); MEAN CORPUSCULAR HEMOGLOBIN 27.5 pg (25.0-35.0); MEAN CORPUSCULAR HGB CONC 33.2 g/dl (31.0-37.0); MEAN PLATELET VOLUME 8.5 fl (7.0-11.0); MONO # 0.9 (0.1-0.6); MONO % 11.3 % (1.0-6.0); RBC 5.16 10^6/uL (3.5-6.1); RED CELL DISTRIBUTION WIDTH 15.5 % (11.5-14.5)
[2017-03-20 07:09] LABS: ALBUMIN 3.3 g/dL (3.0-4.8); ALT/SGPT 27 U/L (7-56); AST/SGOT 29 U/L (17-59); BLOOD UREA NITROGEN 11 mg/dL (7-21); CALCIUM 8.9 mg/dL (8.4-10.5); GFR AFRICAN-AMERICAN > 60; GFR NON-AFRICAN AMERICAN > 60
[2017-03-20] MEDS ORDERED: HYDROmorphone 0.5 mg/0.5 ml ISec IVP STA (07:36)
[2017-03-20] MEDS: Budesonide 0.5 mg/2 ml Inhal Susp UD IH SCH ×2 (08:00→20:30)
[2017-03-20] MEDS ORDERED: Metoprolol 1 mg/ml Inj IVP SCH (09:15)
--- NOTE | 2017-03-20 10:47 | PN ---
DATE: 03/20/2017 SUBJECTIVE: The patient seen and examined on the bedside. He is comfortable except for mild postoperative abdominal pain. He talks full sentences. He is not in respiratory or otherwise distress. He does have hoarse voice after self-extubation in the middle of the night. He did that despite being on 100 mcg per hour of fentanyl, 0.5 mcg/kg/hour of Precedex and 20 mcg/kg/minute of propofol. At present time; however, the patient is comfortable, sedation is off, no stridor and no respiratory distress. ENT consult for hoarse voice was called. PHYSICAL EXAMINATION: VITAL SIGNS: Heart rate is 108, blood pressure 157/102, oxygen saturation 92% to 94%, respiratory 20 to 25. HEENT: Head and neck atraumatic. There is no stridor. NECK: Obese. HEART: Regular rate and rhythm. S1, S2 normal. LUNGS: Clear to auscultation bilaterally. ABDOMEN: Soft, mildly tender in perioperative area. No rebound tenderness. No voluntary or involuntary guarding. MUSCULOSKELETAL: Trace bilateral pedal and ankle edema. SKIN: Color moist. PSYCH: The patient is alert and oriented x3. LABORATORY DATA: Sodium 137, potassium 3.6, chloride 100, carbon dioxide 29, BUN 11, creatinine 0.8, glucose 116. WBC 8, hemoglobin 14.2 and platelet count 285. MEDICATIONS: DuoNeb p.r.n. every 6 hours, budesonide, clonidine, Flagyl, heparin subcutaneous, hydralazine p.r.n., lactated Ringer 150 mL per hour, metoprolol 5 mg IV q. 6 h., Zofran p.r.n., Protonix, ceftriaxone. ASSESSMENT AND PLAN: This is a 52-year-old gentleman with status post reduced ventral hernia, who was admitted to ICU due to high-risk status for postoperative pulmonary complications. He self-extubated himself in the middle of the night and was put on BiPAP which he tolerates very well. At present time, he is off of BiPAP, able to protect his airways. Talks fulls sentences. Not in respiratory or otherwise distress. He does have hoarse voice most likely due to vocal cord irritation during self extubation, Cold air nebulizer treatment will be given and ENT consult was requested. The patient, however, is not in respiratory distress and not stridoring--will hold systemic steroids. The patient does have elevated blood pressure most likely due to longstanding essential hypertension. No signs of withdrawal from opiates. He is on Dilaudid p.r.n. to control his pain and was started on clonidine 0.2 b.i.d., hydralazine p.r.n. and metoprolol 5 mg IV q. 6 h. Echocardiogram is pending. Out of bed to chair, physical therapy, chest PT, intensive spirometry, bronchodilators, inhaled corticosteroids are ordered. Early embolization. Aspiration precaution. Deep venous thrombosis and gastrointestinal prophylaxis. The patient can be transferred to telemetry at present time. Addendum: 8:07 pm--patient BP 160/112, clonidine increased to 0.2 TID, nephrology consult for malignant hypertension requested, patient clinically unchanged. Some LV diastolic dysfunction most likely due to long standing hypertension. ccm time 40 min Jose Cason MD [id number]
--- NOTE | 2017-03-20 13:21 | CP.CCUPN ---
<Robert Suh - Last Filed: 03/20/17 13:14> CCU Subjective - Physician Review Subjective (Free Text): Pt seen and examined at bedside. Pt self extubated last night, breathing well on nonrebreather. Patient only complaining of pain today. Denies CP, SOB, N/V/D , fever, chills. CCU Objective - Vital Signs / Intake & Output Vital Signs (Last 4 hours): Vital Signs Pulse BP 03/20/17 09:35 95 H 166/95 H Intake and Output (Last 8hrs): Intake & Output 03/19/17 03/20/17 03/20/17 22:59 06:59 14:59 Intake Total 880 2000 Output Total 1000 1500 Balance -120 500 Weight 343 lb 14.4 oz Intake: IV 880 2000 Right Wrist 550 2000 Oral 0 Output: Drainage 0 Medial Abdomen 0 Urine 1000 1500 Urine, Voided 1000 1500 - Physical Exam Head: Positive for: Atraumatic, Normocephalic Pupils: Positive for: PERRL Extroacular Muscles: Positive for: EOMI Conjunctiva: Positive for: Normal Mouth: Positive for: Moist Mucous Membranes Neck: Positive for: Normal Range of Motion Respiratory/Chest: Positive for: Clear to Auscultation, Good Air Exchange. Negative for: Respiratory Distress, Accessory Muscle Use Cardiovascular: Positive for: Regular Rate and Rhythm, Normal S1, S2. Negative for: Murmurs Abdomen: Positive for: Tenderness (Diffuse tenderness ) Back: Positive for: Normal Inspection Upper Extremity: Positive for: Normal Inspection. Negative for: Cyanosis, Edema Lower Extremity: Positive for: Normal Inspection. Negative for: Edema Neurological: Positive for: GCS=15, CN II-XII Intact, Speech Normal Skin: Positive for: Warm, Dry, Normal Color. Negative for: Rashes Psychiatric: Positive for: Alert, Oriented x 3, Normal Insight, Normal Concentration - Medications Active Medications: Active Medications Generic Name Dose Route Start Last Admin Trade Name Freq PRN Reason Stop Dose Admin Albuterol/Ipratropium 3 ml 03/18/17 12:42 Duoneb 3 Mg/0.5 Mg (3 Ml) Ud IH [id number] PRN Wheezing Albuterol/Ipratropium 3 ml 03/18/17 14:00 03/20/17 02:50 Duoneb 3 Mg/0.5 Mg (3 Ml) Ud IH 3 ml [id number] GO Administration Benzocaine/Menthol 1 dalia 03/18/17 14:19 Cepacol Sore Throat MT Q2H PRN Sore Throat Budesonide 0.5 mg 03/18/17 20:00 03/19/17 20:42 Pulmicort Respules IH 0.5 mg [id number] GO Administration Clonidine HCl 0.2 mg 03/20/17 10:00 03/20/17 09:00 Catapres PO 0.2 mg BID GO Administration Heparin Sodium (Porcine) 5,000 units 03/18/17 14:15 03/20/17 06:14 Heparin SC 5,000 units Q8 GO Administration Protocol Hydralazine HCl 5 mg 03/20/17 09:06 Apresoline IVP Q4H PRN BPs>160 Hydromorphone HCl 1 mg 03/18/17 16:37 03/20/17 11:24 Dilaudid IVP 1 mg Q2H PRN Administration withdrawl Metronidazole 250 mg in 50 mls @ 100 mls/hr 03/18/17 15:00 03/20/17 06:14 Flagyl IVPB 03/23/17 15:01 100 mls/hr Q8 GO Administration Protocol Propofol 1,000 mg in 100 mls @ 4.744 mls/hr 03/19/17 15:33 03/19/17 22:22 Diprivan IV 0 mcg/kg/min .[id number] PRN 0 mls/hr TITRATE PER MD ORDER Titration Protocol 5 MCG/KG/MIN Lactated Ringer's 1,000 mls @ 150 mls/hr 03/19/17 15:45 03/19/17 22:31 Lactated Ringer's IV 150 mls/hr .[id number] GO Administration Dexmedetomidine HCl 400 mcg in 100 mls @ 7.906 mls/hr 03/19/17 16:15 21:30 Precedex 4 Mcg/Ml (100 Ml) IV 0 mcg/kg/hr .[id number] PRN 0 mls/hr Agitation Titration Protocol 0.2 MCG/KG/HR Fentanyl Citrate 1,000 mcg in 100 mls @ 7.5 mls/hr 03/19/17 16:15 03/19/17 21 :30 Fentanyl Citrate/Sodium Chloride 1 Mg/100 Ml IV 0 mcg/hr .[id number] PRN 0 mls/hr TITRATE PER MD ORDER Titration Protocol 75 MCG/HR Ceftriaxone Sodium 1 gm/ 100 mls @ 200 mls/hr 03/20/17 10:59 Sodium Chloride IVPB DAILY GO Protocol Ondansetron HCl 4 mg 03/18/17 12:33 03/19/17 00:05 Zofran Inj IVP 4 mg Q6H PRN Administration Nausea/Vomiting Pantoprazole Sodium 40 mg 03/18/17 12:45 03/20/17 09:00 Protonix Inj IVP 40 mg DAILY GO Administration - Patient Studies Lab Studies: Lab Studies 03/20/17 03/20/17 03/19/17 Range/Units 05:20 05:20 20:45 WBC 8.0 D (4.5-11.0) 10^3/ul RBC 5.16 (3.5-6.1) 10^6/uL Hgb 14.2 (14.0-18.0) g/dL Hct 42.8 (42.0-52.0) % MCV 82.9 (80.0-105.0) fl MCH 27.5 (25.0-35.0) pg MCHC 33.2 (31.0-37.0) g/dl RDW 15.5 H (11.5-14.5) % Plt Count 285 (120.0-450.0) 10^3/uL MPV 8.5 (7.0-11.0) fl Gran % 73.2 H (50.0-68.0) % Lymph % (Auto) 14.9 L (22.0-35.0) % [place] % (Auto) 11.3 H (1.0-6.0) % Eos % (Auto) 0.5 L (1.5-5.0) % Baso % (Auto) 0.1 (0.0-3.0) % Gran # 5.84 (1.4-6.5) Lymph # 1.2 (1.2-3.4) [place] # 0.9 H (0.1-0.6) Eos # 0.0 (0.0-0.7) Baso # 0.01 (0.0-2.0) K/mm3 pCO2 (35-45) mm/Hg pO2 99 H (30-55) mm/Hg HCO3 (21-28) mmol/L ABG pH (7.35-7.45) ABG Total CO2 (22-28) mmol.L ABG O2 Saturation (95-98) % ABG Base Excess (-2.0-3.0) mmol/L ABG Potassium (3.6-5.2) mmol/L VBG pH 7.45 H (7.32-7.43) VBG pCO2 46.0 (40-60) VBG HCO3 32.0 H (21-28) mmol/l VBG Total CO2 33.4 H (22-28) mmol.L VBG O2 Sat (Calc) 98.6 H (40-65) % VBG Base Excess 6.9 H (0.0-2.0) mmol/L VBG Potassium 3.8 (3.6-5.2) mmol/L Sodium 137 137.0 (132-148) mmol/L Chloride 100 102.0 (98-107) mmol/L Glucose 112 H (75-110) mg/dl Lactate 1.1 (0.7-2.1) mmol/L Mechanical Rate FiO2 21.0 % Tidal Volume PEEP Potassium 3.6 (3.6-5.0) mmol/L Carbon Dioxide 29 (21-33) mmol/L Anion Gap 11 (10-20) BUN 11 (7-21) mg/dL Creatinine 0.8 (0.8-1.5) mg/dl Est GFR ( Amer) > 60 Est GFR (Non-Af Amer) > 60 Random Glucose 116 H (70-110) mg/dL Calcium 8.9 (8.4-10.5) mg/dL Phosphorus (2.5-4.5) mg/dL Magnesium (1.7-2.2) mg/dL Total Bilirubin 0.5 (0.2-1.3) mg/dL AST 29 (17-59) U/L ALT 27 (7-56) U/L Alkaline Phosphatase 65 (38-126) U/L Troponin I ng/mL Total Protein 6.6 (5.8-8.3) g/dL Albumin 3.3 (3.0-4.8) g/dL Globulin 3.3 gm/dL Albumin/Globulin Ratio 1.0 L (1.1-1.8) Arterial Blood Potassium (3.6-5.2) mmol/L Venous Blood Potassium 3.8 (3.6-5.2) mmol/L 03/19/17 03/19/17 03/19/17 Range/Units 20:40 16:50 16:20 WBC (4.5-11.0) 10^3/ul RBC (3.5-6.1) 10^6/uL Hgb (14.0-18.0) g/dL Hct (42.0-52.0) % MCV (80.0-105.0) fl MCH (25.0-35.0) pg MCHC (31.0-37.0) g/dl RDW (11.5-14.5) % Plt Count (120.0-450.0) 10^3/uL MPV (7.0-11.0) fl Gran % (50.0-68.0) % Lymph % (Auto) (22.0-35.0) % [place] % (Auto) (1.0-6.0) % Eos % (Auto) (1.5-5.0) % Baso % (Auto) (0.0-3.0) % Gran # (1.4-6.5) Lymph # (1.2-3.4) [place] # (0.1-0.6) Eos # (0.0-0.7) Baso # (0.0-2.0) K/mm3 pCO2 42 42 (35-45) mm/Hg pO2 74.0 L 85.0 48 (30-55) mm/Hg HCO3 28.5 H 26.6 (21-28) mmol/L ABG pH 7.44 7.41 (7.35-7.45) ABG Total CO2 29.8 H 27.9 (22-28) mmol.L ABG O2 Saturation 97.3 97.8 (95-98) % ABG Base Excess 3.9 H 1.7 (-2.0-3.0) mmol/L ABG Potassium 3.1 L 3.1 L (3.6-5.2) mmol/L VBG pH 7.35 (7.32-7.43) VBG pCO2 52.0 (40-60) VBG HCO3 28.7 H (21-28) mmol/l VBG Total CO2 30.3 H (22-28) mmol.L VBG O2 Sat (Calc) 86.2 H (40-65) % VBG Base Excess 2.1 H (0.0-2.0) mmol/L VBG Potassium 3.8 (3.6-5.2) mmol/L Sodium 139.0 136.0 134.0 (132-148) mmol/L Chloride 106.0 103.0 97.0 L (98-107) mmol/L Glucose 103 143 H 189 H (75-110) mg/dl Lactate 0.9 1.5 2.5 H (0.7-2.1) mmol/L Mechanical Rate 14 FiO2 50.0 50.0 21.0 % Tidal Volume 600 PEEP 7 Potassium (3.6-5.0) mmol/L Carbon Dioxide (21-33) mmol/L Anion Gap (10-20) BUN (7-21) mg/dL Creatinine (0.8-1.5) mg/dl Est GFR ( Amer) Est GFR (Non-Af Amer) Random Glucose (70-110) mg/dL Calcium (8.4-10.5) mg/dL Phosphorus (2.5-4.5) mg/dL Magnesium (1.7-2.2) mg/dL Total Bilirubin (0.2-1.3) mg/dL AST (17-59) U/L ALT (7-56) U/L Alkaline Phosphatase (38-126) U/L Troponin I ng/mL Total Protein (5.8-8.3) g/dL Albumin (3.0-4.8) g/dL Globulin gm/dL Albumin/Globulin Ratio (1.1-1.8) Arterial Blood Potassium 3.1 L 3.1 L (3.6-5.2) mmol/L Venous Blood Potassium 3.8 (3.6-5.2) mmol/L 03/19/17 03/19/17 Range/Units 16:20 16:15 WBC 6.6 D (4.5-11.0) 10^3/ul RBC 5.30 (3.5-6.1) 10^6/uL Hgb 14.3 (14.0-18.0) g/dL Hct 44.2 (42.0-52.0) % MCV 83.4 (80.0-105.0) fl MCH 27.0 (25.0-35.0) pg MCHC 32.4 (31.0-37.0) g/dl RDW 15.4 H (11.5-14.5) % Plt Count 288 (120.0-450.0) 10^3/uL MPV 8.6 (7.0-11.0) fl Gran % 79.8 H (50.0-68.0) % Lymph % (Auto) 12.0 L (22.0-35.0) % [place] % (Auto) 8.2 H (1.0-6.0) % Eos % (Auto) 0.0 L (1.5-5.0) % Baso % (Auto) 0.0 (0.0-3.0) % Gran # 5.28 (1.4-6.5) Lymph # 0.8 L (1.2-3.4) [place] # 0.5 (0.1-0.6) Eos # 0.0 (0.0-0.7) Baso # 0.00 (0.0-2.0) K/mm3 pCO2 (35-45) mm/Hg pO2 (30-55) mm/Hg HCO3 (21-28) mmol/L ABG pH (7.35-7.45) ABG Total CO2 (22-28) mmol.L ABG O2 Saturation (95-98) % ABG Base Excess (-2.0-3.0) mmol/L ABG Potassium (3.6-5.2) mmol/L VBG pH (7.32-7.43) VBG pCO2 (40-60) VBG HCO3 (21-28) mmol/l VBG Total CO2 (22-28) mmol.L VBG O2 Sat (Calc) (40-65) % VBG Base Excess (0.0-2.0) mmol/L VBG Potassium (3.6-5.2) mmol/L Sodium 135 (132-148) mmol/L Chloride 97 L (98-107) mmol/L Glucose (75-110) mg/dl Lactate (0.7-2.1) mmol/L Mechanical Rate FiO2 % Tidal Volume PEEP Potassium 3.8 (3.6-5.0) mmol/L Carbon Dioxide 27 (21-33) mmol/L Anion Gap 15 (10-20) BUN 10 (7-21) mg/dL Creatinine 0.9 (0.8-1.5) mg/dl Est GFR ( Amer) > 60 Est GFR (Non-Af Amer) > 60 Random Glucose 191 H (70-110) mg/dL Calcium 8.6 (8.4-10.5) mg/dL Phosphorus 3.5 (2.5-4.5) mg/dL Magnesium 1.3 L (1.7-2.2) mg/dL Total Bilirubin 0.7 (0.2-1.3) mg/dL AST 26 (17-59) U/L ALT 22 (7-56) U/L Alkaline Phosphatase 63 (38-126) U/L Troponin I < 0.01 ng/mL Total Protein 6.9 (5.8-8.3) g/dL Albumin 3.5 (3.0-4.8) g/dL Globulin 3.4 gm/dL Albumin/Globulin Ratio 1.0 L (1.1-1.8) Arterial Blood Potassium (3.6-5.2) mmol/L Venous Blood Potassium (3.6-5.2) mmol/L Laboratory Results - last 24 hr 03/19/17 03/19/17 03/19/17 16:15 16:20 16:20 WBC 6.6 D RBC 5.30 Hgb 14.3 Hct 44.2 MCV 83.4 MCH 27.0 MCHC 32.4 RDW 15.4 H Plt Count 288 MPV 8.6 Gran % 79.8 H Lymph % (Auto) 12.0 L [place] % (Auto) 8.2 H Eos % (Auto) 0.0 L Baso % (Auto) 0.0 Gran # 5.28 Lymph # 0.8 L [place] # 0.5 Eos # 0.0 Baso # 0.00 pCO2 pO2 48 HCO3 ABG pH ABG Total CO2 ABG O2 Saturation ABG Base Excess ABG Potassium VBG pH 7.35 VBG pCO2 52.0 VBG HCO3 28.7 H VBG Total CO2 30.3 H VBG O2 Sat (Calc) 86.2 H VBG Base Excess 2.1 H VBG Potassium 3.8 Sodium 135 134.0 Chloride 97 L 97.0 L Glucose 189 H Lactate 2.5 H Mechanical Rate FiO2 21.0 Tidal Volume PEEP Potassium 3.8 Carbon Dioxide 27 Anion Gap 15 BUN 10 Creatinine 0.9 Est GFR ( Amer) > 60 Est GFR (Non-Af Amer) > 60 Random Glucose 191 H Calcium 8.6 Phosphorus 3.5 Magnesium 1.3 L Total Bilirubin 0.7 AST 26 ALT 22 Alkaline Phosphatase 63 Troponin I < 0.01 Total Protein 6.9 Albumin 3.5 Globulin 3.4 Albumin/Globulin Ratio 1.0 L Arterial Blood Potassium Venous Blood Potassium 3.8 03/19/17 03/19/17 03/19/17 16:50 20:40 20:45 WBC RBC Hgb Hct MCV MCH MCHC RDW Plt Count MPV Gran % Lymph % (Auto) [place] % (Auto) Eos % (Auto) Baso % (Auto) Gran # Lymph # [place] # Eos # Baso # pCO2 42 42 pO2 85.0 74.0 L 99 H HCO3 26.6 28.5 H ABG pH 7.41 7.44 ABG Total CO2 27.9 29.8 H ABG O2 Saturation 97.8 97.3 ABG Base Excess 1.7 3.9 H ABG Potassium 3.1 L 3.1 L VBG pH 7.45 H VBG pCO2 46.0 VBG HCO3 32.0 H VBG Total CO2 33.4 H VBG O2 Sat (Calc) 98.6 H VBG Base Excess 6.9 H VBG Potassium 3.8 Sodium 136.0 139.0 137.0 Chloride 103.0 106.0 102.0 Glucose 143 H 103 112 H Lactate 1.5 0.9 1.1 Mechanical Rate 14 FiO2 50.0 50.0 21.0 Tidal Volume 600 PEEP 7 Potassium Carbon Dioxide Anion Gap BUN Creatinine Est GFR ( Amer) Est GFR (Non-Af Amer) Random Glucose Calcium Phosphorus Magnesium Total Bilirubin AST ALT Alkaline Phosphatase Troponin I Total Protein Albumin Globulin Albumin/Globulin Ratio Arterial Blood Potassium 3.1 L 3.1 L Venous Blood Potassium 3.8 03/20/17 03/20/17 05:20 05:20 WBC 8.0 D RBC 5.16 Hgb 14.2 Hct 42.8 MCV 82.9 MCH 27.5 MCHC 33.2 RDW 15.5 H Plt Count 285 MPV 8.5 Gran % 73.2 H Lymph % (Auto) 14.9 L [place] % (Auto) 11.3 H Eos % (Auto) 0.5 L Baso % (Auto) 0.1 Gran # 5.84 Lymph # 1.2 [place] # 0.9 H Eos # 0.0 Baso # 0.01 pCO2 pO2 HCO3 ABG pH ABG Total CO2 ABG O2 Saturation ABG Base Excess ABG Potassium VBG pH VBG pCO2 VBG HCO3 VBG Total CO2 VBG O2 Sat (Calc) VBG Base Excess VBG Potassium Sodium 137 Chloride 100 Glucose Lactate Mechanical Rate FiO2 Tidal Volume PEEP Potassium 3.6 Carbon Dioxide 29 Anion Gap 11 BUN 11 Creatinine 0.8 Est GFR ( Amer) > 60 Est GFR (Non-Af Amer) > 60 Random Glucose 116 H Calcium 8.9 Phosphorus Magnesium Total Bilirubin 0.5 AST 29 ALT 27 Alkaline Phosphatase 65 Troponin I Total Protein 6.6 Albumin 3.3 Globulin 3.3 Albumin/Globulin Ratio 1.0 L Arterial Blood Potassium Venous Blood Potassium EKG/Cardiology Studies: Cardiology / EKG Studies 03/19/17 15:58 EKG [ELECTROCARDIOGRAM] Stat Comment: Reason For Exam: postop NC 03/20/17 EKG [ELECTROCARDIOGRAM] Routine Comment: Reason For Exam: postop Critical Care Progress Note - Nutrition Nutrition: Nutrition Category Date Time Status NPO Diet [DIET] Diets 03/18/17 Breakfast Ordered Assessment/Plan - Assessment and Plan (Free Text) Plan: 52 y/o M with PMH of hypertension, asthma, tobacco use, and polysubstance abuse presents incarcerated ventral hernia s/p repair, POD #1. Patient was brought to the ICU after surgery. As per Dr. Dennis, he was concerned with possibility of withdrawal as patient has a history of opioid abuse. After discussion with the primary team, it was deemed that patient is not in withdrawal and is displaying no signs of respiratory distress. Patient will be transferred to telemetry today. Neuro: AAOx3 No deficits Cardio: Hemodynamically stable Maintain MAP >65 Clonidine 0.2 mg BID started Lower extremity duplex ordered Pulm: Nonrebreather Maintain O2 sat >90% Duonebs prn GI: S/p hernia repair Dilaudid for pain Surgery following Protonix for GI prophylaxis Renal: Maintain euvolemia Replete electrolytes as needed ID: Continue Rocephin and Flagyl Afebrile, no leukocytosis Vikash, PGY-2 <Jose Cason - Last Filed: 03/20/17 20:09> CCU Objective - Vital Signs / Intake & Output Vital Signs (Last 4 hours): Vital Signs Pulse BP 03/20/17 18:51 91 H 196/122 H 03/20/17 18:00 101 H 03/20/17 17:16 100 H 181/95 H Intake and Output (Last 8hrs): Intake & Output 03/20/17 03/20/17 03/20/17 06:59 14:59 22:59 Intake Total 1999 1870 Output Total 1500 940 Balance 500 930 Weight 343 lb 14.4 oz 343 lb 14.4 oz Intake: IV 1999 1750 Left Antecubital 1750 Right Wrist 2000 Oral 0 Other 120 Output: Gastric Amount 50 Right Nares 50 Drainage 90 Medial Abdomen 90 Urine 1500 800 Urethral ([place]) 200 Urine, Voided 1500 600 Other: # Bowel Movements 0 - Medications Active Medications: Active Medications Generic Name Dose Route Start Last Admin Trade Name Freq PRN Reason Stop Dose Admin Albuterol/Ipratropium 3 ml 03/18/17 12:42 Duoneb 3 Mg/0.5 Mg (3 Ml) Ud IH [id number] PRN Wheezing Albuterol/Ipratropium 3 ml 03/18/17 14:00 03/20/17 14:19 Duoneb 3 Mg/0.5 Mg (3 Ml) Ud IH 3 ml [id number] GO Administration Benzocaine/Menthol 1 dalia 03/18/17 14:19 Cepacol Sore Throat MT Q2H PRN Sore Throat Budesonide 0.5 mg 03/18/17 20:00 03/20/17 08:00 Pulmicort Respules IH 0.5 mg [id number] GO Administration Clonidine HCl 0.2 mg 03/21/17 10:00 Catapres PO TID GO Heparin Sodium (Porcine) 5,000 units 03/18/17 14:15 03/20/17 13:33 Heparin SC 5,000 units Q8 GO Administration Protocol Hydralazine HCl 5 mg 03/20/17 09:06 03/20/17 18:51 Apresoline IVP 5 mg Q4H PRN Administration BPs>160 Hydromorphone HCl 1 mg 03/18/17 16:37 03/20/17 17:18 Dilaudid IVP 1 mg Q2H PRN Administration withdrawl Metronidazole 250 mg in 50 mls @ 100 mls/hr 03/18/17 15:00 03/20/17 14:53 Flagyl IVPB 03/23/17 15:01 100 mls/hr Q8 GO Administration Protocol Propofol 1,000 mg in 100 mls @ 4.744 mls/hr 03/19/17 15:33 03/19/17 22:22 Diprivan IV 0 mcg/kg/min .Q21H5M PRN 0 mls/hr TITRATE PER MD ORDER Titration Protocol 5 MCG/KG/MIN Lactated Ringer's 1,000 mls @ 150 mls/hr 03/19/17 15:45 03/20/17 14:00 Lactated Ringer's IV 150 mls/hr .Q6H40M GO Administration Dexmedetomidine HCl 400 mcg in 100 mls @ 7.906 mls/hr 03/19/17 16:15 21:30 Precedex 4 Mcg/Ml (100 Ml) IV 0 mcg/kg/hr .[id number] PRN 0 mls/hr Agitation Titration Protocol 0.2 MCG/KG/HR Fentanyl Citrate 1,000 mcg in 100 mls @ 7.5 mls/hr 03/19/17 16:15 03/19/17 21 :30 Fentanyl Citrate/Sodium Chloride 1 Mg/100 Ml IV 0 mcg/hr .[id number] PRN 0 mls/hr TITRATE PER MD ORDER Titration Protocol 75 MCG/HR Ceftriaxone Sodium 1 gm/ 100 mls @ 200 mls/hr 03/20/17 10:59 Sodium Chloride IVPB DAILY GO Protocol Metoprolol Tartrate 5 mg 03/20/17 20:00 Lopressor IVP Q6H GO Ondansetron HCl 4 mg 03/18/17 12:33 03/19/17 00:05 Zofran Inj IVP 4 mg Q6H PRN Administration Nausea/Vomiting Pantoprazole Sodium 40 mg 03/18/17 12:45 03/20/17 09:00 Protonix Inj IVP 40 mg DAILY GO Administration - Patient Studies Lab Studies: Microbiology Studies 03/19/17 15:03 Gram Stain - Final Peritoneal Fluid Lab Studies 03/20/17 03/20/17 03/20/17 Range/Units 06:00 05:20 05:20 WBC 8.0 D (4.5-11.0) 10^3/ul RBC 5.16 (3.5-6.1) 10^6/uL Hgb 14.2 (14.0-18.0) g/dL Hct 42.8 (42.0-52.0) % MCV 82.9 (80.0-105.0) fl MCH 27.5 (25.0-35.0) pg MCHC 33.2 (31.0-37.0) g/dl RDW 15.5 H (11.5-14.5) % Plt Count 285 (120.0-450.0) 10^3/uL MPV 8.5 (7.0-11.0) fl Gran % 73.2 H (50.0-68.0) % Lymph % (Auto) 14.9 L (22.0-35.0) % [place] % (Auto) 11.3 H (1.0-6.0) % Eos % (Auto) 0.5 L (1.5-5.0) % Baso % (Auto) 0.1 (0.0-3.0) % Gran # 5.84 (1.4-6.5) Lymph # 1.2 (1.2-3.4) [place] # 0.9 H (0.1-0.6) Eos # 0.0 (0.0-0.7) Baso # 0.01 (0.0-2.0) K/mm3 pCO2 (35-45) mm/Hg pO2 (80-100) mm/Hg HCO3 (21-28) mmol/L ABG pH (7.35-7.45) ABG Total CO2 (22-28) mmol.L ABG O2 Saturation (95-98) % ABG Base Excess (-2.0-3.0) mmol/L ABG Potassium (3.6-5.2) mmol/L VBG pH (7.32-7.43) VBG pCO2 (40-60) VBG HCO3 (21-28) mmol/l VBG Total CO2 (22-28) mmol.L VBG O2 Sat (Calc) (40-65) % VBG Base Excess (0.0-2.0) mmol/L VBG Potassium (3.6-5.2) mmol/L Sodium 137 (132-148) mmol/L Chloride 100 (98-107) mmol/L Glucose (75-110) mg/dl Lactate (0.7-2.1) mmol/L FiO2 % Potassium 3.6 (3.6-5.0) mmol/L Carbon Dioxide 29 (21-33) mmol/L Anion Gap 11 (10-20) BUN 11 (7-21) mg/dL Creatinine 0.8 (0.8-1.5) mg/dl Est GFR ( Amer) > 60 Est GFR (Non-Af Amer) > 60 Random Glucose 116 H (70-110) mg/dL Calcium 8.9 (8.4-10.5) mg/dL Total Bilirubin 0.5 (0.2-1.3) mg/dL AST 29 (17-59) U/L ALT 27 (7-56) U/L Alkaline Phosphatase 65 (38-126) U/L NT-Pro-B Natriuret Pep 288 (0-450) pg/mL Total Protein 6.6 (5.8-8.3) g/dL Albumin 3.3 (3.0-4.8) g/dL Globulin 3.3 gm/dL Albumin/Globulin Ratio 1.0 L (1.1-1.8) Arterial Blood Potassium (3.6-5.2) mmol/L Venous Blood Potassium (3.6-5.2) mmol/L 03/19/17 03/19/17 Range/Units 20:45 20:40 WBC (4.5-11.0) 10^3/ul RBC (3.5-6.1) 10^6/uL Hgb (14.0-18.0) g/dL Hct (42.0-52.0) % MCV (80.0-105.0) fl MCH (25.0-35.0) pg MCHC (31.0-37.0) g/dl RDW (11.5-14.5) % Plt Count (120.0-450.0) 10^3/uL MPV (7.0-11.0) fl Gran % (50.0-68.0) % Lymph % (Auto) (22.0-35.0) % [place] % (Auto) (1.0-6.0) % Eos % (Auto) (1.5-5.0) % Baso % (Auto) (0.0-3.0) % Gran # (1.4-6.5) Lymph # (1.2-3.4) [place] # (0.1-0.6) Eos # (0.0-0.7) Baso # (0.0-2.0) K/mm3 pCO2 42 (35-45) mm/Hg pO2 99 H 74.0 L (80-100) mm/Hg HCO3 28.5 H (21-28) mmol/L ABG pH 7.44 (7.35-7.45) ABG Total CO2 29.8 H (22-28) mmol.L ABG O2 Saturation 97.3 (95-98) % ABG Base Excess 3.9 H (-2.0-3.0) mmol/L ABG Potassium 3.1 L (3.6-5.2) mmol/L VBG pH 7.45 H (7.32-7.43) VBG pCO2 46.0 (40-60) VBG HCO3 32.0 H (21-28) mmol/l VBG Total CO2 33.4 H (22-28) mmol.L VBG O2 Sat (Calc) 98.6 H (40-65) % VBG Base Excess 6.9 H (0.0-2.0) mmol/L VBG Potassium 3.8 (3.6-5.2) mmol/L Sodium 137.0 139.0 (132-148) mmol/L Chloride 102.0 106.0 (98-107) mmol/L Glucose 112 H 103 (75-110) mg/dl Lactate 1.1 0.9 (0.7-2.1) mmol/L FiO2 21.0 50.0 % Potassium (3.6-5.0) mmol/L Carbon Dioxide (21-33) mmol/L Anion Gap (10-20) BUN (7-21) mg/dL Creatinine (0.8-1.5) mg/dl Est GFR ( Amer) Est GFR (Non-Af Amer) Random Glucose (70-110) mg/dL Calcium (8.4-10.5) mg/dL Total Bilirubin (0.2-1.3) mg/dL AST (17-59) U/L ALT (7-56) U/L Alkaline Phosphatase (38-126) U/L NT-Pro-B Natriuret Pep (0-450) pg/mL Total Protein (5.8-8.3) g/dL Albumin (3.0-4.8) g/dL Globulin gm/dL Albumin/Globulin Ratio (1.1-1.8) Arterial Blood Potassium 3.1 L (3.6-5.2) mmol/L Venous Blood Potassium 3.8 (3.6-5.2) mmol/L Laboratory Results - last 24 hr 03/19/17 03/19/17 03/20/17 20:40 20:45 05:20 WBC 8.0 D RBC 5.16 Hgb 14.2 Hct 42.8 MCV 82.9 MCH 27.5 MCHC 33.2 RDW 15.5 H Plt Count 285 MPV 8.5 Gran % 73.2 H Lymph % (Auto) 14.9 L [place] % (Auto) 11.3 H Eos % (Auto) 0.5 L Baso % (Auto) 0.1 Gran # 5.84 Lymph # 1.2 [place] # 0.9 H Eos # 0.0 Baso # 0.01 pCO2 42 pO2 74.0 L 99 H HCO3 28.5 H ABG pH 7.44 ABG Total CO2 29.8 H ABG O2 Saturation 97.3 ABG Base Excess 3.9 H ABG Potassium 3.1 L VBG pH 7.45 H VBG pCO2 46.0 VBG HCO3 32.0 H VBG Total CO2 33.4 H VBG O2 Sat (Calc) 98.6 H VBG Base Excess 6.9 H VBG Potassium 3.8 Sodium 139.0 137.0 Chloride 106.0 102.0 Glucose 103 112 H Lactate 0.9 1.1 FiO2 50.0 21.0 Potassium Carbon Dioxide Anion Gap BUN Creatinine Est GFR ( Amer) Est GFR (Non-Af Amer) Random Glucose Calcium Total Bilirubin AST ALT Alkaline Phosphatase NT-Pro-B Natriuret Pep Total Protein Albumin Globulin Albumin/Globulin Ratio Arterial Blood Potassium 3.1 L Venous Blood Potassium 3.8 03/20/17 03/20/17 05:20 06:00 WBC RBC Hgb Hct MCV MCH MCHC RDW Plt Count MPV Gran % Lymph % (Auto) [place] % (Auto) Eos % (Auto) Baso % (Auto) Gran # Lymph # [place] # Eos # Baso # pCO2 pO2 HCO3 ABG pH ABG Total CO2 ABG O2 Saturation ABG Base Excess ABG Potassium VBG pH VBG pCO2 VBG HCO3 VBG Total CO2 VBG O2 Sat (Calc) VBG Base Excess VBG Potassium Sodium 137 Chloride 100 Glucose Lactate FiO2 Potassium 3.6 Carbon Dioxide 29 Anion Gap 11 BUN 11 Creatinine 0.8 Est GFR ( Amer) > 60 Est GFR (Non-Af Amer) > 60 Random Glucose 116 H Calcium 8.9 Total Bilirubin 0.5 AST 29 ALT 27 Alkaline Phosphatase 65 NT-Pro-B Natriuret Pep 288 Total Protein 6.6 Albumin 3.3 Globulin 3.3 Albumin/Globulin Ratio 1.0 L Arterial Blood Potassium Venous Blood Potassium EKG/Cardiology Studies: Cardiology / EKG Studies 03/20/17 EKG [ELECTROCARDIOGRAM] Routine Comment: Reason For Exam: postop Critical Care Progress Note - Nutrition Nutrition: Nutrition Category Date Time Status NPO Diet [DIET] Diets 03/18/17 Breakfast Ordered Attending/Attestation - Attestation I have personally seen and examined this patient.: Yes I have fully participated in the care of the patient.: Yes I have reviewed all pertinent clinical information: Yes Notes (Text): 03/20/17 20:[address] Cason note
[2017-03-20] MEDS: Lactated Ringer's 1,000 ML IV SCH ×2 (14:00→22:20)
--- NOTE | 2017-03-20 14:10 | PN ---
DATE: SUBJECTIVE: The patient underwent ventral hernia repair and umbilical hernia repair with a mesh. He self extubated himself. No reported ventricular arrhythmia or hypotension. The patient is hypertensive. He denies any chest pain. PHYSICAL EXAMINATION: VITAL SIGNS: Blood pressure 166/95, heart rate 95, and respirations 22. There is no temperature reported for today. HEENT: Normocephalic. CHEST: Bilateral rhonchi. HEART: S1 and S2 regular. EXTREMITIES: 1+ pitting edema. LABORATORY DATA: Today's hemoglobin, hematocrit, white count and platelet count are within normal limits. Today's SMA-7 is within normal limits except for glucose of 116. ASSESSMENT: 1. Status post ventral hernia repair for incarcerated hernia. 2. Hypertension. 3. Cocaine and heroin abuse. RECOMMENDATIONS: Continue hydralazine mg IV p.r.n. q.4 hours, continue clonidine 0.2 mg p.o. twice a day, IV Rocephin 1 g daily, IV Flagyl 250 mg q.8 hours, and Zofran 4 mg IV q.6 hours. Obtain 12-lead EKG. Zac Stephenson MD
--- NOTE | 2017-03-20 15:18 | RAD ---
HISTORY: Congestion. COMPARISON: March 19, 2017. FINDINGS: LUNGS: Improved aeration of the lungs. PLEURA: No significant pleural effusion identified, no pneumothorax apparent. CARDIOVASCULAR: Cardiomegaly. No evidence of acute, significant cardiovascular disease. OSSEOUS STRUCTURES: No significant abnormalities. VISUALIZED UPPER ABDOMEN: Normal. OTHER FINDINGS: Satisfactory position nasogastric tube. The endotracheal tube is been removed. IMPRESSION: Improving consolidative changes right lower lobe.
--- NOTE | 2017-03-20 16:29 | CP.PCM.PN ---
<Paulina Zelaya - Last Filed: 03/20/17 18:16> Subjective - Date & Time of Evaluation Date of Evaluation: 03/20/17 Time of Evaluation: 16:22 - Subjective Subjective: Paulina Zelaya, PGY1, Medicine Progress Note for Dr Napoles: Patient seen and examined at bedside. Pt s/p exp lap for reduction of small bowel incarceration and ventral hernia repair x2 yesterday with Dr Dennis. Pt intubated and brought to ICU postop, extubated self overnight, breathing well on aerosolized mask 28% FiO2. Denies nausea, vomiting, fevers, chills, headache , diaphoresis. Pt not passing gas and no BM yet since the operation. Has abdominal pain at the site, though well controlled with pain meds. Patient's partner is at bedside. Discussed in detail the plan for resuming diet and patient's condition. Objective - Vital Signs/Intake and Output Vital Signs (last 24 hours): Temp Pulse Resp BP Pulse Ox 98.6 F 91 H 19 183/107 H 97 03/20/17 00:10 03/20/17 14:00 03/20/17 08:20 03/20/17 13:36 03/20/17 08:20 Intake and Output: 03/20/17 03/20/17 06:59 18:59 Intake Total 2180 Output Total 1500 Balance 680 - Medications Medications: Current Medications Albuterol/Ipratropium (Duoneb 3 Mg/0.5 Mg (3 Ml) Ud) 3 ml IH [id number] PRN PRN Reason: Wheezing Albuterol/Ipratropium (Duoneb 3 Mg/0.5 Mg (3 Ml) Ud) 3 ml IH [id number] [facility] Last Admin: 03/20/17 14:19 Dose: 3 ml Benzocaine/Menthol (Cepacol Sore Throat) 1 dalia MT Q2H PRN PRN Reason: Sore Throat Budesonide (Pulmicort Respules) 0.5 mg IH [id number] [facility] Last Admin: 03/20/17 08:00 Dose: 0.5 mg Clonidine HCl (Catapres) 0.2 mg PO BID [facility] Last Admin: 03/20/17 09:00 Dose: 0.2 mg Heparin Sodium (Porcine) (Heparin) 5,000 units SC Q8 [facility] PRN Reason: Protocol Last Admin: 03/20/17 13:33 Dose: 5,000 units Hydralazine HCl (Apresoline) 5 mg IVP Q4H PRN PRN Reason: BPs>160 Last Admin: 03/20/17 13:36 Dose: 5 mg Hydromorphone HCl (Dilaudid) 1 mg IVP Q2H PRN PRN Reason: withdrawl Last Admin: 03/20/17 15:35 Dose: 1 mg Metronidazole (Flagyl) 250 mg in 50 mls @ 100 mls/hr IVPB Q8 [facility] PRN Reason: Protocol Stop: 03/23/17 15:01 Last Admin: 03/20/17 14:53 Dose: 100 mls/hr Propofol (Diprivan) 1,000 mg in 100 mls @ 4.744 mls/hr IV .Q21H5M PRN; Protocol ; 5 MCG/KG/MIN PRN Reason: TITRATE PER MD ORDER Last Titration: 03/19/17 22:22 Dose: 0 mcg/kg/min, 0 mls/hr Lactated Ringer's (Lactated Ringer's) 1,000 mls @ 150 mls/hr IV .Q6H40M [facility] Last Admin: 03/20/17 14:00 Dose: 150 mls/hr Dexmedetomidine HCl (Precedex 4 Mcg/Ml (100 Ml)) 400 mcg in 100 mls @ 7.906 mls /hr IV .[id number] PRN; Protocol; 0.2 MCG/KG/HR PRN Reason: Agitation Last Titration: 03/19/17 21:30 Dose: 0 mcg/kg/hr, 0 mls/hr Fentanyl Citrate (Fentanyl Citrate/Sodium Chloride 1 Mg/100 Ml) 1,000 mcg in 100 mls @ 7.5 mls/hr IV .[id number] PRN; Protocol; 75 MCG/HR PRN Reason: TITRATE PER MD ORDER Last Titration: 03/19/17 21:30 Dose: 0 mcg/hr, 0 mls/hr Ceftriaxone Sodium 1 gm/ (Sodium Chloride) 100 mls @ 200 mls/hr IVPB DAILY [facility] PRN Reason: Protocol Ondansetron HCl (Zofran Inj) 4 mg IVP Q6H PRN PRN Reason: Nausea/Vomiting Last Admin: 03/19/17 00:05 Dose: 4 mg Pantoprazole Sodium (Protonix Inj) 40 mg IVP DAILY [facility] Last Admin: 03/20/17 09:00 Dose: 40 mg - Labs Labs: 03/20/17 05:20 03/20/17 05:20 PT 10.9 SECONDS (9.4-12.5) 03/18/17 04:20 INR 1.00 (0.93-1.08) 03/18/17 04:20 APTT 29.6 Seconds (25.1-36.5) 03/18/17 04:20 - Additional Findings Additional findings: - Constitutional Appears: In Acute Distress, Other (morbidly obese male) - Head Exam Head Exam: ATRAUMATIC, NORMOCEPHALIC - Eye Exam Eye Exam: EOMI, PERRL. absent: Conjunctival injection, Scleral icterus Pupil Exam: NORMAL ACCOMODATION, PERRL - ENT Exam ENT Exam: Mucous Membranes Moist - Neck Exam Neck Exam: Full ROM - Respiratory Exam Respiratory Exam: mild crackles in RLL absent: Accessory Muscle Use, Respiratory Distress Additional comments: on ventimask - Cardiovascular Exam Cardiovascular Exam: Tachycardia, +S1, +S2. absent: Murmur - GI/Abdominal Exam GI & Abdominal Exam: + surgical site mid abdomen, covered in dressing with GEE draining SS fluid, hypoactive BS, soft, nondistended - Extremities Exam Extremities Exam: absent: Calf Tenderness, Pedal Edema - Back Exam Back Exam: NORMAL INSPECTION - Neurological Exam Neurological Exam: Alert, Awake, Oriented x3 - Psychiatric Exam Psychiatric exam: Anxious, Normal Affect - Skin Skin Exam: Dry, Normal Color, Warm Assessment and Plan - Assessment and Plan (Free Text) Assessment: 52 yo male whose past medical history includes HTN, ventral hernia, tobacco use , and asthma, presents to the ED c/o abdominal pain likely 2/2 suspicious incarcerated hernia and SBO. S/p ex-lap for reduction of small bowel incarceration and ventral hernia repair x2, POD#1, also found to have RLL asp pneumonitis post procedure yesterday. Currently well covered on Flagyl and Rocephin, no leukocytosis/bandemia today. BNP norml. Currently pt is not passing any gas or BM. Denies any appetite. Abd pain 2/2 suspicious incarcerated hernia, s/p hernia repair and reduction POD #1 - NPO. Cont to monitor. Will advance diet as tolerated. - pain control - Zofran PRN - LR @ 125 - CT abd/pelvis: moderate fat containing ventral abdominal wall hernia. There is bowel containing ventral abdominal wall hernia with surrounding bowel wall thickening infiltration and resultant small bowel obstruction, suspicious for incarcerated ventral hernia. Small amount of free pelvic fluid. - Cardiology and Pulm Consulted for surgery clearance and recs. Appreciate recs. -Leukocytosis with bandemia has resolved today. - trend daily cbc, cmp. - C/w IV abx Flagyl and Rocephin RLL Asp Pneumonia: - likely with anesthesia during ex lap - On Rocephin and Flagyl. Hypoxia, resolved 2/2 likely sepsis - Pt self extubated yesterday overnight after OR ex-lap. On non-rebreather, saturating well. will wean down as tolerated - BNP nrml, f.u echo Asthma - Duonebs q6h [facility], Duonebs Q4H PRN - Pulmicort - Cont to monitor Hx of HTN - On Clonidine 0.2 mg bid - Cont to monitor Hx of Drug/tobacco/etoh abuse: - Utox + Cocaine, and opiods - Received 10 mg Methadone 03/18 for withdrawal symptoms - Cont to monitor for withdrawals - Advised patient on alcohol/smoking and drug cessation. GI/DVT px - Protonix and Hep Sq Case and plan was reviewed and discussed in detail with Dr Napoles. Paulina Zelaya, PGY1 <Zheng Napoles - Last Filed: 03/21/17 16:47> Objective - Vital Signs/Intake and Output Vital Signs (last 24 hours): Temp Pulse Resp BP Pulse Ox 99.0 F 89 26 H 154/81 H 93 L 03/21/17 07:00 03/21/17 14:00 03/21/17 13:40 03/21/17 14:42 03/21/17 15:10 Intake and Output: 03/21/17 03/21/17 06:59 18:59 Intake Total 1800 Output Total 540 Balance 1260 - Medications Medications: Current Medications Albuterol/Ipratropium (Duoneb 3 Mg/0.5 Mg (3 Ml) Ud) 3 ml IH [id number] PRN PRN Reason: Wheezing Albuterol/Ipratropium (Duoneb 3 Mg/0.5 Mg (3 Ml) Ud) 3 ml IH [id number] [facility] Last Admin: 03/21/17 14:00 Dose: 3 ml Amlodipine Besylate (Norvasc) 5 mg PO DAILY [facility] Last Admin: 03/21/17 12:45 Dose: 5 mg Benzocaine/Menthol (Cepacol Sore Throat) 1 dalia MT Q2H PRN PRN Reason: Sore Throat Budesonide (Pulmicort Respules) 0.5 mg IH [id number] [facility] Last Admin: 03/21/17 07:38 Dose: 0.5 mg Clonidine HCl (Catapres) 0.2 mg PO TID [facility] Last Admin: 03/21/17 13:35 Dose: 0.2 mg Heparin Sodium (Porcine) (Heparin) 5,000 units SC Q8 [facility] PRN Reason: Protocol Last Admin: 03/21/17 13:35 Dose: 5,000 units Hydralazine HCl (Apresoline) 10 mg IVP Q4H PRN PRN Reason: BPs>160 Last Admin: 03/21/17 08:58 Dose: 10 mg Hydromorphone HCl (Dilaudid) 1 mg IVP Q2H PRN PRN Reason: withdrawl Stop: 03/24/17 16:38 Last Admin: 03/21/17 14:58 Dose: 1 mg Metronidazole (Flagyl) 250 mg in 50 mls @ 100 mls/hr IVPB Q8 [facility] PRN Reason: Protocol Stop: 03/23/17 15:01 Last Admin: 03/21/17 13:36 Dose: 100 mls/hr Propofol (Diprivan) 1,000 mg in 100 mls @ 4.744 mls/hr IV .Q21H5M PRN; Protocol ; 5 MCG/KG/MIN PRN Reason: TITRATE PER MD ORDER Last Titration: 03/19/17 22:22 Dose: 0 mcg/kg/min, 0 mls/hr Lactated Ringer's (Lactated Ringer's) 1,000 mls @ 150 mls/hr IV .Q6H40M [facility] Last Admin: 03/21/17 14:51 Dose: 150 mls/hr Dexmedetomidine HCl (Precedex 4 Mcg/Ml (100 Ml)) 400 mcg in 100 mls @ 7.906 mls /hr IV .[id number] PRN; Protocol; 0.2 MCG/KG/HR PRN Reason: Agitation Last Titration: 03/19/17 21:30 Dose: 0 mcg/kg/hr, 0 mls/hr Fentanyl Citrate (Fentanyl Citrate/Sodium Chloride 1 Mg/100 Ml) 1,000 mcg in 100 mls @ 7.5 mls/hr IV .[id number] PRN; Protocol; 75 MCG/HR PRN Reason: TITRATE PER MD ORDER Last Titration: 03/19/17 21:30 Dose: 0 mcg/hr, 0 mls/hr Ceftriaxone Sodium 1 gm/ (Sodium Chloride) 100 mls @ 200 mls/hr IVPB DAILY [facility] PRN Reason: Protocol Last Admin: 03/21/17 09:53 Dose: 200 mls/hr Losartan Potassium (Cozaar) 50 mg PO DAILY [facility] Last Admin: 03/21/17 12:45 Dose: 50 mg Ondansetron HCl (Zofran Inj) 4 mg IVP Q6H PRN PRN Reason: Nausea/Vomiting Last Admin: 03/19/17 00:05 Dose: 4 mg Pantoprazole Sodium (Protonix Inj) 40 mg IVP DAILY [facility] Last Admin: 03/21/17 09:33 Dose: 40 mg - Labs Labs: 03/21/17 05:50 03/21/17 06:00 PT 10.9 SECONDS (9.4-12.5) 03/18/17 04:20 INR 1.00 (0.93-1.08) 03/18/17 04:20 APTT 29.6 Seconds (25.1-36.5) 03/18/17 04:20 Attending/Attestation - Attestation I have personally seen and examined this patient.: Yes I have fully participated in the care of the patient.: Yes I have reviewed all pertinent clinical information, including history, physical exam and plan: Yes Notes (Text): 03/21/17 16:42 Patient was seen and examined with medical technologist chemistry. 52 M with PMH of hypertension , morbid obesity, substance abuse with opiates and cocaine, current active smoker was admitted with of abdominal pain and was found to have incarcerated ventral hernia .He s/p Ex lap and reduction of hernia. Pt self extubated and respiratory status is stable. Blood pressure is running high, will adjust medication. Patient is currently NPO.Surgery is following. Hypoxia is improving.Cultures are negative for any growth.
--- NOTE | 2017-03-20 16:39 | CARD ---
APPROVED REPORT EXAM: Two-dimensional and M-mode echocardiogram with Doppler and color Doppler. INDICATION Congestive Heart Failure CARDIOMEGALY 2D DIMENSIONS Left Atrium (2D)4.4 (1.6-4.0cm)IVSd1.6 (0.7-1.1cm) LVDd6.0 (3.9-5.9cm)PWd1.5 (0.7-1.1cm) LVDs3.8 (2.5-4.0cm)FS (%) 36.3 % LVEF (%)65.2 (>50%) M-Mode DIMENSIONS Aortic Root3.90 (2.2-3.7cm)Aortic Cusp Exc.2.10 (1.5-2.0cm) Aortic Valve AoV Peak Besvaora024.0cm/Judy Peak GR.6mmHg Mitral Valve E/A ratio0.0 TDI E/Lateral E'0.0E/Medial E'0.0 Pulmonary Valve PV Peak Olrdkkmo18.9cm/sPV Peak Grad.3mmHg Tricuspid Valve TR Peak [id number]/sRAP [id number] Peak Gr.27mmHg [id number] LEFT VENTRICLE The left ventricle is normal size. There is mild to moderate concentric left ventricular hypertrophy. The left ventricular function is normal. The left ventricular ejection fraction is within the normal range. There is normal LV segmental wall motion. Transmitral Doppler flow pattern is Grade I-abnormal relaxation pattern. RIGHT VENTRICLE The right ventricle is normal size. There is normal right ventricular wall thickness. The right ventricular systolic function is normal. ATRIA The left atrium is mildly dilated. The right atrium size is normal. AORTIC VALVE The aortic valve is not well visualized. There is mild aortic regurgitation. MITRAL VALVE The mitral valve is mildly thickened. There is no mitral valve regurgitation noted. There is no mitral valve stenosis. TRICUSPID VALVE There is mild tricuspid regurgitation. There is mild pulmonary hypertension. PULMONIC VALVE There is mild pulmonic valvular regurgitation. GREAT VESSELS The aortic root is mildly enlarged. The IVC is normal in size and collapses >50% with inspiration. <Conclusion> The left ventricle is normal size. There is mild to moderate concentric left ventricular hypertrophy. The left ventricular function is normal. The left ventricular ejection fraction is within the normal range. There is normal LV segmental wall motion. Transmitral Doppler flow pattern is Grade I-abnormal relaxation pattern. There is mild aortic regurgitation. The aortic root is mildly enlarged. There is mild tricuspid regurgitation. There is mild pulmonary hypertension.
--- NOTE | 2017-03-20 17:20 | CARD ---
APPROVED REPORT EKG Measurement Heart [id number] [place] [id number] [id number] <Conclusion> Normal sinus rhythm Left axis deviation Abnormal ECG
--- NOTE | 2017-03-20 17:39 | CP.PCM.PN ---
Subjective - Date & Time of Evaluation Date of Evaluation: 03/20/17 Time of Evaluation: 06:50 - Subjective Subjective: General Surgery- Dr. Dennis Patient seen and examined at bedside this AM. Patient self extubated overnight. Pt hypertensive. flynn in place w/ good output. pain controlled at this time. Denies Fevers, chills, nausea, vomiting, diarrhea. Objective - Vital Signs/Intake and Output Vital Signs (last 24 hours): Temp Pulse Resp BP Pulse Ox 98.6 F 100 H 19 181/95 H 97 03/20/17 00:10 03/20/17 17:16 03/20/17 08:20 03/20/17 17:16 03/20/17 08:20 Intake and Output: 03/20/17 03/20/17 06:59 18:59 Intake Total 2180 Output Total 1500 Balance 680 - Medications Medications: Current Medications Albuterol/Ipratropium (Duoneb 3 Mg/0.5 Mg (3 Ml) Ud) 3 ml IH [id number] PRN PRN Reason: Wheezing Albuterol/Ipratropium (Duoneb 3 Mg/0.5 Mg (3 Ml) Ud) 3 ml IH [id number] [facility] Last Admin: 03/20/17 14:19 Dose: 3 ml Benzocaine/Menthol (Cepacol Sore Throat) 1 dalia MT Q2H PRN PRN Reason: Sore Throat Budesonide (Pulmicort Respules) 0.5 mg IH [id number] [facility] Last Admin: 03/20/17 08:00 Dose: 0.5 mg Clonidine HCl (Catapres) 0.2 mg PO BID [facility] Last Admin: 03/20/17 17:16 Dose: 0.2 mg Heparin Sodium (Porcine) (Heparin) 5,000 units SC Q8 [facility] PRN Reason: Protocol Last Admin: 03/20/17 13:33 Dose: 5,000 units Hydralazine HCl (Apresoline) 5 mg IVP Q4H PRN PRN Reason: BPs>160 Last Admin: 03/20/17 13:36 Dose: 5 mg Hydromorphone HCl (Dilaudid) 1 mg IVP Q2H PRN PRN Reason: withdrawl Last Admin: 03/20/17 17:18 Dose: 1 mg Metronidazole (Flagyl) 250 mg in 50 mls @ 100 mls/hr IVPB Q8 [facility] PRN Reason: Protocol Stop: 03/23/17 15:01 Last Admin: 03/20/17 14:53 Dose: 100 mls/hr Propofol (Diprivan) 1,000 mg in 100 mls @ 4.744 mls/hr IV .Q21H5M PRN; Protocol ; 5 MCG/KG/MIN PRN Reason: TITRATE PER MD ORDER Last Titration: 03/19/17 22:22 Dose: 0 mcg/kg/min, 0 mls/hr Lactated Ringer's (Lactated Ringer's) 1,000 mls @ 150 mls/hr IV .Q6H40M [facility] Last Admin: 03/20/17 14:00 Dose: 150 mls/hr Dexmedetomidine HCl (Precedex 4 Mcg/Ml (100 Ml)) 400 mcg in 100 mls @ 7.906 mls /hr IV .[id number] PRN; Protocol; 0.2 MCG/KG/HR PRN Reason: Agitation Last Titration: 03/19/17 21:30 Dose: 0 mcg/kg/hr, 0 mls/hr Fentanyl Citrate (Fentanyl Citrate/Sodium Chloride 1 Mg/100 Ml) 1,000 mcg in 100 mls @ 7.5 mls/hr IV .[id number] PRN; Protocol; 75 MCG/HR PRN Reason: TITRATE PER MD ORDER Last Titration: 03/19/17 21:30 Dose: 0 mcg/hr, 0 mls/hr Ceftriaxone Sodium 1 gm/ (Sodium Chloride) 100 mls @ 200 mls/hr IVPB DAILY [facility] PRN Reason: Protocol Ondansetron HCl (Zofran Inj) 4 mg IVP Q6H PRN PRN Reason: Nausea/Vomiting Last Admin: 03/19/17 00:05 Dose: 4 mg Pantoprazole Sodium (Protonix Inj) 40 mg IVP DAILY [facility] Last Admin: 03/20/17 09:00 Dose: 40 mg - Labs Labs: 03/20/17 05:20 03/20/17 05:20 PT 10.9 SECONDS (9.4-12.5) 03/18/17 04:20 INR 1.00 (0.93-1.08) 03/18/17 04:20 APTT 29.6 Seconds (25.1-36.5) 03/18/17 04:20 - Constitutional Appears: Non-toxic, No Acute Distress - Head Exam Head Exam: ATRAUMATIC - Eye Exam Eye Exam: EOMI. absent: Scleral icterus - ENT Exam ENT Exam: Mucous Membranes Moist - Respiratory Exam Respiratory Exam: NORMAL BREATHING PATTERN. absent: Accessory Muscle Use, Chest Wall Tenderness, Respiratory Distress - Cardiovascular Exam Cardiovascular Exam: +S1, +S2. absent: Bradycardia, Tachycardia - GI/Abdominal Exam GI & Abdominal Exam: Soft, Tenderness. absent: Distended, Firm, Guarding, Rigid Additional comments: appropriately tender around incision site - Neurological Exam Neurological Exam: Alert, Awake, Oriented x3 - Skin Skin Exam: Intact, Warm Assessment and Plan - Assessment and Plan (Free Text) Assessment: 52M s/p ex-lap w/ reduction of ventral hernia with mesh Plan: - await bowel function return - pain control and anti-emetic PRN - d/c flynn - will plan to advance diet to clears - substance abuse withdrawal precaution - further recs per Dr. Sonny Yoo PGY1
[2017-03-20] MEDS: Metoprolol 1 mg/ml Inj IVP SCH (22:16)
[2017-03-21] MEDS: HYDROmorphone 1 mg/ml ISec IVP PRN ×2 (00:40→03:13)
[2017-03-21] MEDS: Albuterol-Ipratrop 3 mg / 0.5 (3 ml) UD IH SCH ×4 (01:42→20:23)
[2017-03-21] MEDS: Metoprolol 1 mg/ml Inj IVP SCH ×2 (03:15→08:25)
[2017-03-21] MEDS: Lactated Ringer's 1,000 ML IV SCH ×4 (04:28→21:01)
[2017-03-21] MEDS: HYDROmorphone 0.5 mg/0.5 ml ISec IVP PRN ×8 (05:24→21:40)
[2017-03-21] MEDS: metroNIDAZOLE IV 250mg/50 ml 250 MG/50 ML BAG IVPB SCH ×3 (05:25→21:53)
--- NOTE | 2017-03-21 06:11 | CON ---
ENT CONSULTATION DATE: 03/20/2017 CHIEF COMPLAINT: Hoarseness. HISTORY OF PRESENT ILLNESS: This is a 52-year-old male with a past medical history of hypertension, diabetes, asthma, and substance abuse, who underwent a hernia repair and was status post intubated, transferred to CCU. The patient next morning self-extubated himself with the ET tube inflated. Since the extubation, the patient has been reporting of sore throat and dysphonia. The patient reports that he has difficulty speaking and cannot speak in clear loud terms. The patient denies ever having an episode like this before and links it to his episode this morning, which he cannot recall. The patient reports that he feels slight discomfort in the back of his throat like a bad sore throat and cannot make it go away. He denies any shortness of breath or loss of breath with speaking. No other ENT complaints. PAST MEDICAL HISTORY: Asthma, hypertension, substance abuse. PAST SURGICAL HISTORY: Ventral hernia repair. ALLERGIES: UNKNOWN. SOCIAL HISTORY: The patient is an ex-substance abuser to cocaine and heroin. The patient lives at home with his . REVIEW OF SYSTEMS: All 10-review of systems were observed, all are negative except per HPI. PHYSICAL EXAMINATION: VITAL SIGNS: Stable. GENERAL: AAO x3, in mild distress. EYES: Extraocular muscles are intact bilaterally. MOUTH: Moist mucous membranes. No masses or lesions. The patient has a large tongue. PROCEDURE: The decision was made with verbal consent from the patient to carry out a direct flexible laryngoscopy to better visualize the vocal cord and the trachea. Afrin was applied into the left nasal cavity due to the NG tube in the right nasal cavity. The scope was advanced in to the left nasal cavity, in to the nasopharynx and adenoid tissue was appreciated. The scope was flexed into the oropharynx. Normal anatomy of the base of tongue was appreciated. The epiglottis was normal and crisp in appearance. The lateral and posterior pharyngeal gonzalez were without any masses. The scope was advanced to visualize the glottis. The AE fold and the posterior arytenoids were visualized, slight erythema and edema were noted to the posterior arytenoids, likely secondary to the traumatic extubation and acid reflux. True vocal cords were visualized. The right vocal cord appeared to be hemorrhagic. The left cord appeared to be irritated with slight erythema. The true vocal cords were abducted and adducted appropriately. There was noted to be a slight glottic insufficiency. The scope was then removed under direct visualization. The patient tolerated the procedure well. ASSESSMENT: This is a 52-year-old male with a past medical history of hypertension and asthma who underwent a hernia repair and self-extubated himself with hoarseness. PLAN: 1. The patient was recommended to begin voice therapy, which entails resting voice and not speaking unless absolutely necessary, to avoid speaking in loud tone and also to avoid whispering, which can exacerbate the current hoarse symptoms. 2. Recommend PPI prophylaxis as the patient is currently on Protonix 40 mg due to noted erythema and slight edema to the posterior arytenoid, likely secondary to acid reflux. 3. A short course of tapering steroids can be used, which can help with hoarseness. 4. The patient is told that the current status is likely benign secondary to trauma and will resolve on own. The patient is encouraged to follow up in our office in outpatient setting in 2-3 weeks. 5. The patient is cleared from the ENT perspective. This was discussed with the patient. This was also discussed with the patient's . We thank you for allowing us to participate in this patient's care. Melvin Schneider DO MTDReji
[2017-03-21 07:21] LABS: BASO # 0.01 K/mm3 (0.0-2.0); BASO % 0.1 % (0.0-3.0); EOS % 0.5 % (1.5-5.0); GRAN # 4.81 (1.4-6.5); GRAN % 65.4 % (50.0-68.0); HEMOGLOBIN 13.3 g/dL (14.0-18.0); LYMPH # 1.3 (1.2-3.4); LYMPH % 17.9 % (22.0-35.0); MEAN CELL VOLUME 82.6 fl (80.0-105.0); MEAN CORPUSCULAR HEMOGLOBIN 26.6 pg (25.0-35.0); MEAN CORPUSCULAR HGB CONC 32.2 g/dl (31.0-37.0); MEAN PLATELET VOLUME 8.7 fl (7.0-11.0); MONO # 1.2 (0.1-0.6); MONO % 16.1 % (1.0-6.0); RED CELL DISTRIBUTION WIDTH 15.5 % (11.5-14.5); WHITE BLOOD COUNT 7.4 10^3/ul (4.5-11.0)
[2017-03-21 07:37] LABS: ALBUMIN 3.3 g/dL (3.0-4.8); ALT/SGPT 32 U/L (7-56); AST/SGOT 66 U/L (17-59); BLOOD UREA NITROGEN 12 mg/dL (7-21); CALCIUM 8.9 mg/dL (8.4-10.5); GFR AFRICAN-AMERICAN > 60; GFR NON-AFRICAN AMERICAN > 60
[2017-03-21] MEDS: Budesonide 0.5 mg/2 ml Inhal Susp UD IH SCH ×2 (07:38→20:33)
--- NOTE | 2017-03-21 11:16 | US ---
HISTORY: Leg pain and swelling. Evaluate for DVT PHYSICIAN(S): James Madrigal MD. TECHNIQUE: Duplex sonography and color-flow Doppler with graded compression were used to evaluate the deep venous systems of both lower extremities. The exam is limited by body habitus and edema FINDINGS: The visualized deep venous systems of both lower extremities are sonographically normal and compressible. Normal wave forms and augmentation are seen. There is no sonographic evidence for deep venous thrombosis in the visualized segments of both lower extremities. IMPRESSION: No sonographic evidence for deep venous thrombosis in the visualized segments of both lower extremities. Limited study
--- NOTE | 2017-03-21 12:50 | CP.PCM.PN ---
<Paulina Zelaya - Last Filed: 03/21/17 12:45> Subjective - Date & Time of Evaluation Date of Evaluation: 03/21/17 Time of Evaluation: 12:45 - Subjective Subjective: Paulina Zelaya, PGY1, Medicine Progress Note for Dr Napoles: Patient seen and examined at bedside.Overnight, pt's BP was elevated SBP in 170s , requiring Labetalol 10 mg IVx2. Pt has a cough, mucosy, however, improving. Denies fever, chills, nausea, vomiting, diaphoresis, palpitations, cp, leg swelling. Pt also has not been passing gas or bowel movement since surgery. Denies excessive abdominal pain, distention. Objective - Vital Signs/Intake and Output Vital Signs (last 24 hours): Temp Pulse Resp BP Pulse Ox 99.0 F 97 H 21 168/97 H 96 03/21/17 07:00 03/21/17 11:00 03/21/17 11:00 03/21/17 10:54 03/21/17 11:00 Intake and Output: 03/21/17 03/21/17 06:59 18:59 Intake Total 1800 Output Total 540 Balance 1260 - Medications Medications: Current Medications Albuterol/Ipratropium (Duoneb 3 Mg/0.5 Mg (3 Ml) Ud) 3 ml IH [id number] PRN PRN Reason: Wheezing Albuterol/Ipratropium (Duoneb 3 Mg/0.5 Mg (3 Ml) Ud) 3 ml IH [id number] [facility] Last Admin: 03/21/17 07:38 Dose: 3 ml Amlodipine Besylate (Norvasc) 5 mg PO DAILY [facility] Benzocaine/Menthol (Cepacol Sore Throat) 1 dalia MT Q2H PRN PRN Reason: Sore Throat Budesonide (Pulmicort Respules) 0.5 mg IH [id number] [facility] Last Admin: 03/21/17 07:38 Dose: 0.5 mg Clonidine HCl (Catapres) 0.2 mg PO TID [facility] Last Admin: 03/21/17 08:25 Dose: 0.2 mg Heparin Sodium (Porcine) (Heparin) 5,000 units SC Q8 [facility] PRN Reason: Protocol Last Admin: 03/21/17 05:25 Dose: 5,000 units Hydralazine HCl (Apresoline) 10 mg IVP Q4H PRN PRN Reason: BPs>160 Last Admin: 03/21/17 08:58 Dose: 10 mg Hydromorphone HCl (Dilaudid) 1 mg IVP Q2H PRN PRN Reason: withdrawl Stop: 03/24/17 16:38 Last Admin: 03/21/17 09:32 Dose: 1 mg Metronidazole (Flagyl) 250 mg in 50 mls @ 100 mls/hr IVPB Q8 [facility] PRN Reason: Protocol Stop: 03/23/17 15:01 Last Admin: 03/21/17 05:25 Dose: 100 mls/hr Propofol (Diprivan) 1,000 mg in 100 mls @ 4.744 mls/hr IV .Q21H5M PRN; Protocol ; 5 MCG/KG/MIN PRN Reason: TITRATE PER MD ORDER Last Titration: 03/19/17 22:22 Dose: 0 mcg/kg/min, 0 mls/hr Lactated Ringer's (Lactated Ringer's) 1,000 mls @ 150 mls/hr IV .Q6H40M [facility] Last Admin: 03/21/17 04:28 Dose: 150 mls/hr Dexmedetomidine HCl (Precedex 4 Mcg/Ml (100 Ml)) 400 mcg in 100 mls @ 7.906 mls /hr IV .H60O05G PRN; Protocol; 0.2 MCG/KG/HR PRN Reason: Agitation Last Titration: 03/19/17 21:30 Dose: 0 mcg/kg/hr, 0 mls/hr Fentanyl Citrate (Fentanyl Citrate/Sodium Chloride 1 Mg/100 Ml) 1,000 mcg in 100 mls @ 7.5 mls/hr IV .[id number] PRN; Protocol; 75 MCG/HR PRN Reason: TITRATE PER MD ORDER Last Titration: 03/19/17 21:30 Dose: 0 mcg/hr, 0 mls/hr Ceftriaxone Sodium 1 gm/ (Sodium Chloride) 100 mls @ 200 mls/hr IVPB DAILY [facility] PRN Reason: Protocol Last Admin: 03/21/17 09:53 Dose: 200 mls/hr Losartan Potassium (Cozaar) 50 mg PO DAILY [facility] Ondansetron HCl (Zofran Inj) 4 mg IVP Q6H PRN PRN Reason: Nausea/Vomiting Last Admin: 03/19/17 00:05 Dose: 4 mg Pantoprazole Sodium (Protonix Inj) 40 mg IVP DAILY [facility] Last Admin: 03/21/17 09:33 Dose: 40 mg - Labs Labs: 03/21/17 05:50 03/21/17 06:00 PT 10.9 SECONDS (9.4-12.5) 03/18/17 04:20 INR 1.00 (0.93-1.08) 03/18/17 04:20 APTT 29.6 Seconds (25.1-36.5) 03/18/17 04:20 - Additional Findings Additional findings: - Constitutional Appears: In Acute Distress, Other (morbidly obese male) - Head Exam Head Exam: ATRAUMATIC, NORMOCEPHALIC - Eye Exam Eye Exam: EOMI, PERRL. absent: Conjunctival injection, Scleral icterus Pupil Exam: NORMAL ACCOMODATION, PERRL - ENT Exam ENT Exam: Mucous Membranes Moist - Neck Exam Neck Exam: Full ROM - Respiratory Exam Respiratory Exam: mild crackles in RLL absent: Accessory Muscle Use, Respiratory Distress - Cardiovascular Exam Cardiovascular Exam: Tachycardia, +S1, +S2. absent: Murmur - GI/Abdominal Exam GI & Abdominal Exam: + surgical site mid abdomen, covered in dressing (c/d/i) with GEE draining SS fluid, improving normal BS, soft, nondistended - Extremities Exam Extremities Exam: absent: Calf Tenderness, Pedal Edema - Back Exam Back Exam: NORMAL INSPECTION - Neurological Exam Neurological Exam: Alert, Awake, Oriented x3 - Psychiatric Exam Psychiatric exam: Anxious, Normal Affect - Skin Skin Exam: Dry, Normal Color, Warm Assessment and Plan - Assessment and Plan (Free Text) Assessment: 52 yo male whose past medical history includes HTN, ventral hernia, tobacco use , and asthma, presents to the ED c/o abdominal pain likely 2/2 suspicious incarcerated hernia and SBO. S/p ex-lap for reduction of small bowel incarceration and ventral hernia repair x2, POD#2, also found to have RLL asp pneumonitis post procedure. Currently well covered on Flagyl and Rocephin. Pt doing well post surgery, however, has not been passing gas or BM since the surgery. Pt still has NGT to suction in place, as per surgery, draining bilious drainage. Awaiting surgery recs to initiate feeding. Abd pain 2/2 suspicious incarcerated hernia, s/p hernia repair and reduction POD #2 - NPO. Cont to monitor. Could start with CLD once pt is passing gas or BM. - pain control. will limit to avoid GI side effects of narcotics of slowing bowel movements in this post op patient. - Zofran PRN - LR @ 125 - CT abd/pelvis: moderate fat containing ventral abdominal wall hernia. There is bowel containing ventral abdominal wall hernia with surrounding bowel wall thickening infiltration and resultant small bowel obstruction, suspicious for incarcerated ventral hernia. Small amount of free pelvic fluid. - HD stable, no leukocytosis. - trend daily cbc, cmp. - C/w IV abx Flagyl D3 and Rocephin D4 RLL Asp Pneumonia: - likely with anesthesia during ex lap - On Rocephin D4 and Flagyl D3. Hypoxia, resolved 2/2 likely sepsis vs CHF - Pt self extubated yesterday overnight after OR ex-lap. On non-rebreather, saturating well. will wean down as tolerated - BNP nrml - Echo showed EF 65%. mild to moderate LVH. Mild aortic regurg, aortic root mildly enlarged, Mild TR/pulmonary hypertension Asthma - Duonebs q6h [facility], Duonebs Q4H PRN - Pulmicort - Cont to monitor HTN - On Clonidine 0.2 mg tid and Lopressor 5 mg IV q6h - Pt did not receive clonidine yesterday as pt was NPO, will monitor today's BP readings. If BP readings are good, consider switching to PO Metoprolol. - Cont to monitor Hx of Drug/tobacco/etoh abuse: - Utox + Cocaine, and opiods - Received 10 mg Methadone 03/18 for withdrawal symptoms - Cont to monitor for withdrawals - Advised patient on alcohol/smoking and drug cessation. GI/DVT px - Protonix and Hep Sq Case and plan was reviewed and discussed in detail with Dr Napoles. Paulina Zelaya, PGY1 <Zheng Napoles - Last Filed: 03/21/17 16:52> Objective - Vital Signs/Intake and Output Vital Signs (last 24 hours): Temp Pulse Resp BP Pulse Ox 99.0 F 89 26 H 154/81 H 93 L 03/21/17 07:00 03/21/17 14:00 03/21/17 13:40 03/21/17 14:42 03/21/17 15:10 Intake and Output: 03/21/17 03/21/17 06:59 18:59 Intake Total 1800 Output Total 540 Balance 1260 - Medications Medications: Current Medications Albuterol/Ipratropium (Duoneb 3 Mg/0.5 Mg (3 Ml) Ud) 3 ml IH [id number] PRN PRN Reason: Wheezing Albuterol/Ipratropium (Duoneb 3 Mg/0.5 Mg (3 Ml) Ud) 3 ml IH [id number] [facility] Last Admin: 03/21/17 14:00 Dose: 3 ml Amlodipine Besylate (Norvasc) 5 mg PO DAILY [facility] Last Admin: 03/21/17 12:45 Dose: 5 mg Benzocaine/Menthol (Cepacol Sore Throat) 1 dalia MT Q2H PRN PRN Reason: Sore Throat Budesonide (Pulmicort Respules) 0.5 mg IH [id number] [facility] Last Admin: 03/21/17 07:38 Dose: 0.5 mg Clonidine HCl (Catapres) 0.2 mg PO TID [facility] Last Admin: 03/21/17 13:35 Dose: 0.2 mg Heparin Sodium (Porcine) (Heparin) 5,000 units SC Q8 [facility] PRN Reason: Protocol Last Admin: 03/21/17 13:35 Dose: 5,000 units Hydralazine HCl (Apresoline) 10 mg IVP Q4H PRN PRN Reason: BPs>160 Last Admin: 03/21/17 08:58 Dose: 10 mg Hydromorphone HCl (Dilaudid) 1 mg IVP Q2H PRN PRN Reason: withdrawl Stop: 03/24/17 16:38 Last Admin: 03/21/17 14:58 Dose: 1 mg Metronidazole (Flagyl) 250 mg in 50 mls @ 100 mls/hr IVPB Q8 [facility] PRN Reason: Protocol Stop: 03/23/17 15:01 Last Admin: 03/21/17 13:36 Dose: 100 mls/hr Propofol (Diprivan) 1,000 mg in 100 mls @ 4.744 mls/hr IV .Q21H5M PRN; Protocol ; 5 MCG/KG/MIN PRN Reason: TITRATE PER MD ORDER Last Titration: 03/19/17 22:22 Dose: 0 mcg/kg/min, 0 mls/hr Lactated Ringer's (Lactated Ringer's) 1,000 mls @ 150 mls/hr IV .Q6H40M [facility] Last Admin: 03/21/17 14:51 Dose: 150 mls/hr Dexmedetomidine HCl (Precedex 4 Mcg/Ml (100 Ml)) 400 mcg in 100 mls @ 7.906 mls /hr IV .[id number] PRN; Protocol; 0.2 MCG/KG/HR PRN Reason: Agitation Last Titration: 03/19/17 21:30 Dose: 0 mcg/kg/hr, 0 mls/hr Fentanyl Citrate (Fentanyl Citrate/Sodium Chloride 1 Mg/100 Ml) 1,000 mcg in 100 mls @ 7.5 mls/hr IV .[id number] PRN; Protocol; 75 MCG/HR PRN Reason: TITRATE PER MD ORDER Last Titration: 03/19/17 21:30 Dose: 0 mcg/hr, 0 mls/hr Ceftriaxone Sodium 1 gm/ (Sodium Chloride) 100 mls @ 200 mls/hr IVPB DAILY [facility] PRN Reason: Protocol Last Admin: 03/21/17 09:53 Dose: 200 mls/hr Losartan Potassium (Cozaar) 50 mg PO DAILY [facility] Last Admin: 03/21/17 12:45 Dose: 50 mg Ondansetron HCl (Zofran Inj) 4 mg IVP Q6H PRN PRN Reason: Nausea/Vomiting Last Admin: 03/19/17 00:05 Dose: 4 mg Pantoprazole Sodium (Protonix Inj) 40 mg IVP DAILY [facility] Last Admin: 03/21/17 09:33 Dose: 40 mg - Labs Labs: 03/21/17 05:50 03/21/17 06:00 PT 10.9 SECONDS (9.4-12.5) 03/18/17 04:20 INR 1.00 (0.93-1.08) 03/18/17 04:20 APTT 29.6 Seconds (25.1-36.5) 03/18/17 04:20 Attending/Attestation - Attestation I have personally seen and examined this patient.: Yes I have fully participated in the care of the patient.: Yes I have reviewed all pertinent clinical information, including history, physical exam and plan: Yes Notes (Text): 03/21/17 16:48 Patient was seen and examined with chief medical director. 52 M with PMH of hypertension , morbid obesity, substance abuse with opiates and cocaine, current active smoker was admitted with of abdominal pain and was found to have incarcerated ventral hernia .He s/p Ex lap and reduction of hernia. He is afebrile, feeling better.He is on room air. Cultures are negative for any growth. Blood pressure medications are adjusted, we will monitor and adjust medications. Surgery is following. Management plan was discussed in detail with patient. Education was provided. 03/21/17 16:49
--- NOTE | 2017-03-21 14:31 | CP.PCM.CON ---
History of Present Illness - History of Present Illness History of Present Illness: Initial Nephrology Consultation: Assessment: Stable Uncontrolled severe HTN with urgency (likely multi-factorial: cocaine, drug withdrawal, non-compliance to meds, current stresses as illness, surgery, pain) Morbid obesity, sedentary lifestyle Right adrenal gland nodular thickening and left adrenal gland 2.7 cm stable adenoma r/o hypersecretory adenoma polysubstance abuse with opiates, cocaine, tobacco ventral hernia s/p Ex lap Pneumonia chronic respi acidosis due to CO2 retention with appropriate metabolic compensation Plan Hypertension control with meds as ordered. Patient not on ACEI/ARB, hence will add losartan and also norvasc. uptitrate their dose to max as needed. d/c metoprolol due to cocaine+. agree with IV hydralazine as prn. 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 Monitor Input/Output, daily weights and renal function with basic metabolic panel work up for adrenal adenoma later as outpt once current illness resolves. weight loss, lifestyle modifications and diet d/w patient and smoking cessation and to abstain from drugs Dose meds/antibiotics for normal GFR. Glycemic control. Further work up/ management as per primary team Thanks for allowing me to participate in care of your patient. Will follow patient with you. Please call if any Qs Dr Aquiles [place] Office: [phone] Chief Complaint; pain abdomen HPI: Pt is a 52 M with hx of hypertension (couple of years) hasn't been taking hid BP meds for atleast 1 month, morbid obesity, substance abuse with opiates and cocaine, current active smoker presented with initially with complaints of pain abdomen and was found to have incarcerated ventral hernia s/p Ex lap and reduction of hernia. Pt had self extubated. he was seen in renal consultation for HTN urgency pt feels okay. c/o pain at surgical site. denies SOB/nausea/vomiting father had hx of HTN. pt says usually his BP controlled, sees PCP every 4 months , doesn't check BP at home. aware about low salt diet. doesn't exercise. he is trying to loose weight. doesn't remember name of his home meds. ROS: bedside. Cardiovascular: No chest pain. Pulmonary: No shortness of breath Gastrointestinal: denies abdominal pain No nausea. No vomiting. Genitourinary: No pain while urinating. Denies blood in urine. All other negative Physical Examination: General Appearance: Comfortable, in no acute respiratory distress, co-operative . morbid obese Vitals reviewed and noted as below Head; Atraumatic, normocephalic ENT: no ulcers no thrush. Tongue is midline. Oropharynx: no rash or ulcers. EYES: Pupils are equal, round and reactive to light accommodation. Eye muscles and extraocular movement intact. Sclera is anicteric. Neck; supple no lymphadenopathy, no thyromegaly or bruit Lungs: Normal respiratory rate/effort. Breath sounds bilateral equal and clear Heart: Normal rate. s1s2 normal. No rub or gallop. Extremities: no edema. No varicose veins Neurological: Patient is alert, awake and oriented to person, place and time. No focal deficit. Strength bilateral appropriate and equal Skin: Warm and dry. Normal turgor. No rash. Palpitation: Normal elasticity for age Abdomen: Abdomen is soft. Bowel sounds +. There is no abdominal tenderness, no guarding/rigidity no organomegaly Psych: normal insight and normal affect/mood MSK: no joint tenderness or swelling. Digits and nails normal, no deformity : kidney or bladder not palpable Labs/imaging reviewed. Past medical history, past surgical history, family history, social history, allergy reviewed and noted as below Family hx: no hx of CKD. Rest non-contributory Past Patient History - Infectious Disease Hx of Infectious Diseases: None - Tetanus Immunizations Tetanus Immunization: Unknown - Past Social History Smoking Status: Light Smoker < 10 Cigarettes Daily - CARDIAC Hx Cardiac Disorders: Yes Hx Hypertension: Yes - PULMONARY Hx Respiratory Disorders: Yes Hx Asthma: Yes - HEMATOLOGICAL/ONCOLOGICAL Hx Blood Transfusions: No - MUSCULOSKELETAL/RHEUMATOLOGICAL Hx Musculoskeletal Disorders: Yes Hx Back Pain: Yes - GASTROINTESTINAL Hx Gastrointestinal Disorders: Yes (umbilical hernia surgery 2010) - PSYCHIATRIC Hx Psychophysiologic Disorder: No Hx Substance Use: Yes (5 bags of heroin daily) - SURGICAL HISTORY Hx Surgeries: Yes - ANESTHESIA Hx Anesthesia Reactions: No Hx Malignant Hyperthermia: No Meds Allergies/Adverse Reactions: Allergies Allergy/AdvReac Type Severity Reaction Status Date / Time No Known Allergies Allergy Verified 03/25/14 18:35 - Medications Medications: Current Medications Albuterol/Ipratropium (Duoneb 3 Mg/0.5 Mg (3 Ml) Ud) 3 ml IH [id number] PRN PRN Reason: Wheezing Albuterol/Ipratropium (Duoneb 3 Mg/0.5 Mg (3 Ml) Ud) 3 ml IH [id number] [facility] Last Admin: 03/21/17 14:00 Dose: 3 ml Amlodipine Besylate (Norvasc) 5 mg PO DAILY [facility] Last Admin: 03/21/17 12:45 Dose: 5 mg Benzocaine/Menthol (Cepacol Sore Throat) 1 dalia MT Q2H PRN PRN Reason: Sore Throat Budesonide (Pulmicort Respules) 0.5 mg IH [id number] [facility] Last Admin: 03/21/17 07:38 Dose: 0.5 mg Clonidine HCl (Catapres) 0.2 mg PO TID [facility] Last Admin: 03/21/17 13:35 Dose: 0.2 mg Heparin Sodium (Porcine) (Heparin) 5,000 units SC Q8 [facility] PRN Reason: Protocol Last Admin: 03/21/17 13:35 Dose: 5,000 units Hydralazine HCl (Apresoline) 10 mg IVP Q4H PRN PRN Reason: BPs>160 Last Admin: 03/21/17 08:58 Dose: 10 mg Hydromorphone HCl (Dilaudid) 1 mg IVP Q2H PRN PRN Reason: withdrawl Stop: 03/24/17 16:38 Last Admin: 03/21/17 12:49 Dose: 1 mg Metronidazole (Flagyl) 250 mg in 50 mls @ 100 mls/hr IVPB Q8 [facility] PRN Reason: Protocol Stop: 03/23/17 15:01 Last Admin: 03/21/17 13:36 Dose: 100 mls/hr Propofol (Diprivan) 1,000 mg in 100 mls @ 4.744 mls/hr IV .Q21H5M PRN; Protocol ; 5 MCG/KG/MIN PRN Reason: TITRATE PER MD ORDER Last Titration: 03/19/17 22:22 Dose: 0 mcg/kg/min, 0 mls/hr Lactated Ringer's (Lactated Ringer's) 1,000 mls @ 150 mls/hr IV .Q6H40M [facility] Last Admin: 03/21/17 12:55 Dose: Not Given Dexmedetomidine HCl (Precedex 4 Mcg/Ml (100 Ml)) 400 mcg in 100 mls @ 7.906 mls /hr IV .[id number] PRN; Protocol; 0.2 MCG/KG/HR PRN Reason: Agitation Last Titration: 03/19/17 21:30 Dose: 0 mcg/kg/hr, 0 mls/hr Fentanyl Citrate (Fentanyl Citrate/Sodium Chloride 1 Mg/100 Ml) 1,000 mcg in 100 mls @ 7.5 mls/hr IV .Y74T70M PRN; Protocol; 75 MCG/HR PRN Reason: TITRATE PER MD ORDER Last Titration: 03/19/17 21:30 Dose: 0 mcg/hr, 0 mls/hr Ceftriaxone Sodium 1 gm/ (Sodium Chloride) 100 mls @ 200 mls/hr IVPB DAILY [facility] PRN Reason: Protocol Last Admin: 03/21/17 09:53 Dose: 200 mls/hr Losartan Potassium (Cozaar) 50 mg PO DAILY [facility] Last Admin: 03/21/17 12:45 Dose: 50 mg Ondansetron HCl (Zofran Inj) 4 mg IVP Q6H PRN PRN Reason: Nausea/Vomiting Last Admin: 03/19/17 00:05 Dose: 4 mg Pantoprazole Sodium (Protonix Inj) 40 mg IVP DAILY [facility] Last Admin: 03/21/17 09:33 Dose: 40 mg Results - Vital Signs Recent Vital Signs: Last Vital Signs Temp 99.0 F 03/21/17 07:00 Pulse 89 03/21/17 13:35 Resp 21 03/21/17 11:00 BP 159/82 H 03/21/17 13:35 Pulse Ox 96 03/21/17 11:00 - Labs Result Diagrams: 03/21/17 05:50 03/21/17 06:00 Labs: Laboratory Results - last 24 hr 03/21/17 03/21/17 05:50 06:00 WBC 7.4 RBC 5.00 Hgb 13.3 L Hct 41.3 L MCV 82.6 MCH 26.6 MCHC 32.2 RDW 15.5 H Plt Count 291 MPV 8.7 Gran % 65.4 Lymph % (Auto) 17.9 L Fannin % (Auto) 16.1 H Eos % (Auto) 0.5 L Baso % (Auto) 0.1 Gran # 4.81 Lymph # 1.3 Fannin # 1.2 H Eos # 0.0 Baso # 0.01 Sodium 137 Potassium 3.6 Chloride 102 Carbon Dioxide 29 Anion Gap 9 L BUN 12 Creatinine 0.7 L Est GFR ( Amer) > 60 Est GFR (Non-Af Amer) > 60 Random Glucose 115 H Calcium 8.9 Total Bilirubin 0.6 AST 66 H D ALT 32 Alkaline Phosphatase 61 Total Protein 6.8 Albumin 3.3 Globulin 3.5 Albumin/Globulin Ratio 1.0 L
--- NOTE | 2017-03-21 19:01 | CP.PCM.PN ---
Subjective - Date & Time of Evaluation Date of Evaluation: 03/21/17 Time of Evaluation: 18:59 - Subjective Subjective: Surgery PT s&e. Pierre and NGT DCed. Denies flatus or BM. Denies F/C?N/V/D/CP/SOB. Haven' t ambulated or OOB. Objective - Vital Signs/Intake and Output Vital Signs (last 24 hours): Temp Pulse Resp BP Pulse Ox 99.0 F 97 H 26 H 159/98 H 93 L 03/21/17 07:00 03/21/17 17:06 03/21/17 13:40 03/21/17 17:06 03/21/17 15:10 Intake and Output: 03/21/17 03/21/17 06:59 18:59 Intake Total 1800 Output Total 540 Balance 1260 - Medications Medications: Current Medications Albuterol/Ipratropium (Duoneb 3 Mg/0.5 Mg (3 Ml) Ud) 3 ml IH [id number] PRN PRN Reason: Wheezing Albuterol/Ipratropium (Duoneb 3 Mg/0.5 Mg (3 Ml) Ud) 3 ml IH [id number] [facility] Last Admin: 03/21/17 14:00 Dose: 3 ml Amlodipine Besylate (Norvasc) 5 mg PO DAILY [facility] Last Admin: 03/21/17 12:45 Dose: 5 mg Benzocaine/Menthol (Cepacol Sore Throat) 1 dalia MT Q2H PRN PRN Reason: Sore Throat Budesonide (Pulmicort Respules) 0.5 mg IH [id number] [facility] Last Admin: 03/21/17 07:38 Dose: 0.5 mg Clonidine HCl (Catapres) 0.2 mg PO TID [facility] Last Admin: 03/21/17 17:06 Dose: 0.2 mg Heparin Sodium (Porcine) (Heparin) 5,000 units SC Q8 [facility] PRN Reason: Protocol Last Admin: 03/21/17 13:35 Dose: 5,000 units Hydralazine HCl (Apresoline) 10 mg IVP Q4H PRN PRN Reason: BPs>160 Last Admin: 03/21/17 08:58 Dose: 10 mg Hydromorphone HCl (Dilaudid) 1 mg IVP Q2H PRN PRN Reason: withdrawl Stop: 03/24/17 16:38 Last Admin: 03/21/17 17:06 Dose: 1 mg Metronidazole (Flagyl) 250 mg in 50 mls @ 100 mls/hr IVPB Q8 [facility] PRN Reason: Protocol Stop: 03/23/17 15:01 Last Admin: 03/21/17 13:36 Dose: 100 mls/hr Propofol (Diprivan) 1,000 mg in 100 mls @ 4.744 mls/hr IV .Q21H5M PRN; Protocol ; 5 MCG/KG/MIN PRN Reason: TITRATE PER MD ORDER Last Titration: 03/19/17 22:22 Dose: 0 mcg/kg/min, 0 mls/hr Lactated Ringer's (Lactated Ringer's) 1,000 mls @ 150 mls/hr IV .Q6H40M [facility] Last Admin: 03/21/17 14:51 Dose: 150 mls/hr Dexmedetomidine HCl (Precedex 4 Mcg/Ml (100 Ml)) 400 mcg in 100 mls @ 7.906 mls /hr IV .[id number] PRN; Protocol; 0.2 MCG/KG/HR PRN Reason: Agitation Last Titration: 03/19/17 21:30 Dose: 0 mcg/kg/hr, 0 mls/hr Fentanyl Citrate (Fentanyl Citrate/Sodium Chloride 1 Mg/100 Ml) 1,000 mcg in 100 mls @ 7.5 mls/hr IV .[id number] PRN; Protocol; 75 MCG/HR PRN Reason: TITRATE PER MD ORDER Last Titration: 03/19/17 21:30 Dose: 0 mcg/hr, 0 mls/hr Ceftriaxone Sodium 1 gm/ (Sodium Chloride) 100 mls @ 200 mls/hr IVPB DAILY [facility] PRN Reason: Protocol Last Admin: 03/21/17 09:53 Dose: 200 mls/hr Losartan Potassium (Cozaar) 50 mg PO DAILY [facility] Last Admin: 03/21/17 12:45 Dose: 50 mg Ondansetron HCl (Zofran Inj) 4 mg IVP Q6H PRN PRN Reason: Nausea/Vomiting Last Admin: 03/19/17 00:05 Dose: 4 mg Pantoprazole Sodium (Protonix Inj) 40 mg IVP DAILY [facility] Last Admin: 03/21/17 09:33 Dose: 40 mg - Labs Labs: 03/21/17 05:50 03/21/17 06:00 PT 10.9 SECONDS (9.4-12.5) 03/18/17 04:20 INR 1.00 (0.93-1.08) 03/18/17 04:20 APTT 29.6 Seconds (25.1-36.5) 03/18/17 04:20 - Constitutional Appears: No Acute Distress - Head Exam Head Exam: ATRAUMATIC, NORMAL INSPECTION, NORMOCEPHALIC - Eye Exam Eye Exam: EOMI, Normal appearance, PERRL Pupil Exam: NORMAL ACCOMODATION, PERRL - ENT Exam ENT Exam: Mucous Membranes Moist, Normal Exam - Neck Exam Neck Exam: Full ROM, Normal Inspection. absent: Lymphadenopathy - Respiratory Exam Respiratory Exam: Clear to Ausculation Bilateral, NORMAL BREATHING PATTERN - Cardiovascular Exam Cardiovascular Exam: REGULAR RHYTHM, +S1, +S2. absent: Murmur - GI/Abdominal Exam GI & Abdominal Exam: Soft, Tenderness, Normal Bowel Sounds. absent: Distended, Firm, Guarding, Rigid Additional comments: Incision C/D/I - Extremities Exam Extremities Exam: Normal Inspection - Back Exam Back Exam: NORMAL INSPECTION - Neurological Exam Neurological Exam: Alert, Awake, CN II-XII Intact, Oriented x3 - Psychiatric Exam Psychiatric exam: Normal Affect, Normal Mood - Skin Skin Exam: Dry, Intact, Normal Color, Warm Assessment and Plan - Assessment and Plan (Free Text) Assessment: POD 2 52M s/p ex-lap w/ reduction of ventral hernia with mesh Plan: - await bowel function return - pain control and anti-emetic PRN - will plan to advance diet to clears tomorrow - substance abuse withdrawal precaution -Encourage ambulation , IS DW Dr. Dennis
[2017-03-22] MEDS: HYDROmorphone 0.5 mg/0.5 ml ISec IVP PRN ×4 (00:36→10:38)
[2017-03-22] MEDS: Albuterol-Ipratrop 3 mg / 0.5 (3 ml) UD IH SCH ×4 (02:12→20:49)
[2017-03-22] MEDS: metroNIDAZOLE IV 250mg/50 ml 250 MG/50 ML BAG IVPB SCH (05:40)
[2017-03-22] MEDS: Budesonide 0.5 mg/2 ml Inhal Susp UD IH SCH (07:30)
--- NOTE | 2017-03-22 08:34 | CP.PCM.PCO ---
Physician Communication Note - Physician Communication Note Physician Communication Note: Rx Relistor 8sq/Waiting for flatus
[2017-03-22 08:38] LABS: BASO # 0.02 K/mm3 (0.0-2.0); BASO % 0.2 % (0.0-3.0); EOS # 0.2 (0.0-0.7); EOS % 1.7 % (1.5-5.0); GRAN # 5.33 (1.4-6.5); GRAN % 60.5 % (50.0-68.0); HEMOGLOBIN 13.5 g/dL (14.0-18.0); LYMPH % 22.8 % (22.0-35.0); MEAN CELL VOLUME 81.3 fl (80.0-105.0); MEAN CORPUSCULAR HEMOGLOBIN 27.4 pg (25.0-35.0); MEAN CORPUSCULAR HGB CONC 33.7 g/dl (31.0-37.0); MEAN PLATELET VOLUME 8.5 fl (7.0-11.0); MONO # 1.3 (0.1-0.6); MONO % 14.8 % (1.0-6.0); RBC 4.93 10^6/uL (3.5-6.1); RED CELL DISTRIBUTION WIDTH 15.1 % (11.5-14.5); WHITE BLOOD COUNT 8.8 10^3/ul (4.5-11.0)
[2017-03-22 08:54] LABS: ALBUMIN 3.4 g/dL (3.0-4.8); ALT/SGPT 50 U/L (7-56); AST/SGOT 101 U/L (17-59); BLOOD UREA NITROGEN 12 mg/dL (7-21); CALCIUM 8.9 mg/dL (8.4-10.5); GFR AFRICAN-AMERICAN > 60; GFR NON-AFRICAN AMERICAN > 60; MAGNESIUM 1.7 mg/dL (1.7-2.2)
[2017-03-22] MEDS ORDERED: Potassium Chloride 20 mEq ER Tab PO ONE (09:28)
--- NOTE | 2017-03-22 09:54 | CP.PCM.PN ---
Subjective - Date & Time of Evaluation Date of Evaluation: 03/22/17 Time of Evaluation: 09:52 - Subjective Subjective: Follow up Nephrology Consultation: Assessment: Stable Uncontrolled severe HTN with urgency (likely multi-factorial: cocaine, drug withdrawal, non-compliance to meds, current stresses as illness, surgery, pain) Morbid obesity, sedentary lifestyle Right adrenal gland nodular thickening and left adrenal gland 2.7 cm stable adenoma r/o hypersecretory adenoma Hypokalemia polysubstance abuse with opiates, cocaine, tobacco ventral hernia s/p Ex lap Pneumonia chronic respi acidosis due to CO2 retention with appropriate metabolic compensation Plan Hypertension control with meds as ordered. Increase losartan 100 mg and also norvasc 10 mg. d/c metoprolol due to cocaine+. agree with IV hydralazine as prn. 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 Once BP better controlled then would try to taper it off KDUR 40 meq today Monitor Input/Output, daily weights and renal function with basic metabolic panel work up for adrenal adenoma later as outpt once current illness resolves. weight loss, lifestyle modifications and diet d/w patient and smoking cessation and to abstain from drugs Dose meds/antibiotics for normal GFR. Glycemic control. Further work up/ management as per primary team Thanks for allowing me to participate in care of your patient. Will follow patient with you. Please call if any Qs Dr Aquiles Gilmore Office: [phone] HPI: Pt is a 52 M with hx of hypertension (couple of years) hasn't been taking his BP meds for atleast 1 month, morbid obesity, substance abuse with opiates and cocaine, current active smoker presented with initially with complaints of pain abdomen and was found to have incarcerated ventral hernia s/p Ex lap and reduction of hernia. Pt had self extubated. he was seen in renal consultation for HTN urgency pt feels okay. c/o pain at surgical site. denies SOB/nausea/vomiting father had hx of HTN. pt says usually his BP controlled, sees PCP every 4 months , doesn't check BP at home. aware about low salt diet. doesn't exercise. he is trying to loose weight. doesn't remember name of his home meds. ROS: bedside. Cardiovascular: No chest pain. Pulmonary: No shortness of breath Gastrointestinal: denies abdominal pain but has some soreness No nausea. No vomiting. Genitourinary: No pain while urinating. Denies blood in urine. All other negative Physical Examination: General Appearance: Comfortable, in no acute respiratory distress, co-operative . morbid obese Vitals reviewed and noted as below Head; Atraumatic, normocephalic ENT: no ulcers no thrush. Tongue is midline. Oropharynx: no rash or ulcers. EYES: Pupils are equal, round and reactive to light accommodation. Eye muscles and extraocular movement intact. Sclera is anicteric. Neck; supple no lymphadenopathy, no thyromegaly or bruit Lungs: Normal respiratory rate/effort. Breath sounds bilateral equal and clear Heart: Normal rate. s1s2 normal. No rub or gallop. Extremities: no edema. No varicose veins Neurological: Patient is alert, awake and oriented to person, place and time. No focal deficit. Strength bilateral appropriate and equal Skin: Warm and dry. Normal turgor. No rash. Palpitation: Normal elasticity for age Abdomen: Abdomen is soft. Bowel sounds +. There is abdominal tenderness, no guarding/rigidity no organomegaly. midline maya + Psych: normal insight and normal affect/mood MSK: no joint tenderness or swelling. Digits and nails normal, no deformity : kidney or bladder not palpable Labs/imaging reviewed. Past medical history, past surgical history, family history, social history, allergy reviewed and noted as below Family hx: no hx of CKD. Rest non-contributory Objective - Vital Signs/Intake and Output Vital Signs (last 24 hours): Temp Pulse Resp BP Pulse Ox 99.0 F 74 21 168/97 H 93 L 03/21/17 07:00 03/22/17 06:00 03/21/17 20:20 03/21/17 20:01 03/21/17 20:30 Intake and Output: 03/22/17 03/22/17 06:59 18:59 Intake Total 1650 Output Total 510 Balance 1140 - Medications Medications: Current Medications Albuterol/Ipratropium (Duoneb 3 Mg/0.5 Mg (3 Ml) Ud) 3 ml IH [id number] PRN PRN Reason: Wheezing Albuterol/Ipratropium (Duoneb 3 Mg/0.5 Mg (3 Ml) Ud) 3 ml IH [id number] [facility] Last Admin: 03/22/17 07:30 Dose: 3 ml Amlodipine Besylate (Norvasc) 10 mg PO DAILY [facility] Benzocaine/Menthol (Cepacol Sore Throat) 1 dalia MT Q2H PRN PRN Reason: Sore Throat Budesonide (Pulmicort Respules) 0.5 mg IH [id number] [facility] Last Admin: 03/22/17 07:30 Dose: 0.5 mg Clonidine HCl (Catapres) 0.2 mg PO TID [facility] Last Admin: 03/21/17 17:06 Dose: 0.2 mg Heparin Sodium (Porcine) (Heparin) 5,000 units SC Q8 [facility] PRN Reason: Protocol Last Admin: 03/22/17 05:39 Dose: 5,000 units Hydralazine HCl (Apresoline) 10 mg IVP Q4H PRN PRN Reason: BPs>160 Last Admin: 03/21/17 08:58 Dose: 10 mg Hydromorphone HCl (Dilaudid) 1 mg IVP Q2H PRN PRN Reason: withdrawl Stop: 03/24/17 16:38 Last Admin: 03/22/17 05:41 Dose: 1 mg Metronidazole (Flagyl) 250 mg in 50 mls @ 100 mls/hr IVPB Q8 [facility] PRN Reason: Protocol Stop: 03/23/17 15:01 Last Admin: 03/22/17 05:40 Dose: 100 mls/hr Propofol (Diprivan) 1,000 mg in 100 mls @ 4.744 mls/hr IV .Q21H5M PRN; Protocol ; 5 MCG/KG/MIN PRN Reason: TITRATE PER MD ORDER Last Titration: 03/19/17 22:22 Dose: 0 mcg/kg/min, 0 mls/hr Lactated Ringer's (Lactated Ringer's) 1,000 mls @ 150 mls/hr IV .Q6H40M [facility] Last Admin: 03/21/17 21:01 Dose: 150 mls/hr Dexmedetomidine HCl (Precedex 4 Mcg/Ml (100 Ml)) 400 mcg in 100 mls @ 7.906 mls /hr IV .[id number] PRN; Protocol; 0.2 MCG/KG/HR PRN Reason: Agitation Last Titration: 03/19/17 21:30 Dose: 0 mcg/kg/hr, 0 mls/hr Fentanyl Citrate (Fentanyl Citrate/Sodium Chloride 1 Mg/100 Ml) 1,000 mcg in 100 mls @ 7.5 mls/hr IV .[id number] PRN; Protocol; 75 MCG/HR PRN Reason: TITRATE PER MD ORDER Last Titration: 03/19/17 21:30 Dose: 0 mcg/hr, 0 mls/hr Ceftriaxone Sodium 1 gm/ (Sodium Chloride) 100 mls @ 200 mls/hr IVPB DAILY [facility] PRN Reason: Protocol Last Admin: 03/21/17 09:53 Dose: 200 mls/hr Losartan Potassium (Cozaar) 100 mg PO DAILY [facility] Ondansetron HCl (Zofran Inj) 4 mg IVP Q6H PRN PRN Reason: Nausea/Vomiting Last Admin: 03/19/17 00:05 Dose: 4 mg Pantoprazole Sodium (Protonix Inj) 40 mg IVP DAILY [facility] Last Admin: 03/21/17 09:33 Dose: 40 mg - Labs Labs: 03/22/17 08:20 03/22/17 08:20 PT 10.9 SECONDS (9.4-12.5) 03/18/17 04:20 INR 1.00 (0.93-1.08) 03/18/17 04:20 APTT 29.6 Seconds (25.1-36.5) 03/18/17 04:20
[2017-03-22] MEDS ORDERED: Oxycodone/Acetaminophen 10/325 mg Tab PO SCH ×2 (12:30→12:36)
[2017-03-22] MEDS: Lactated Ringer's 1,000 ML IV SCH ×3 (12:34→21:02)
--- NOTE | 2017-03-22 12:35 | CP.PCM.PN ---
Subjective - Date & Time of Evaluation Date of Evaluation: 03/22/17 Time of Evaluation: 09:00 - Subjective Subjective: GENERAL SURGERY NOTE FOR DR. DENNIS Patient seen and examined at bedside on F. No acute events reported overnight. Patient reports pain associated with midline incision. Patient reports no appetite at this time, denies chest pain, shortness of breath, nausea , vomiting, fever, chills. Objective - Vital Signs/Intake and Output Vital Signs (last 24 hours): Temp Pulse Resp BP Pulse Ox 99.0 F 95 H 21 158/104 H 93 L 03/21/17 07:00 03/22/17 09:56 03/21/17 20:20 03/22/17 09:56 03/21/17 20:30 Intake and Output: 03/22/17 03/22/17 06:59 18:59 Intake Total 1650 Output Total 510 Balance 1140 - Medications Medications: Current Medications Albuterol/Ipratropium (Duoneb 3 Mg/0.5 Mg (3 Ml) Ud) 3 ml IH [id number] PRN PRN Reason: Wheezing Albuterol/Ipratropium (Duoneb 3 Mg/0.5 Mg (3 Ml) Ud) 3 ml IH [id number] [facility] Last Admin: 03/22/17 07:30 Dose: 3 ml Amlodipine Besylate (Norvasc) 10 mg PO DAILY [facility] Last Admin: 03/22/17 09:54 Dose: 10 mg Benzocaine/Menthol (Cepacol Sore Throat) 1 dalia MT Q2H PRN PRN Reason: Sore Throat Budesonide (Pulmicort Respules) 0.5 mg IH [id number] [facility] Last Admin: 03/22/17 07:30 Dose: 0.5 mg Clonidine HCl (Catapres) 0.2 mg PO TID [facility] Last Admin: 03/22/17 09:55 Dose: 0.2 mg Heparin Sodium (Porcine) (Heparin) 5,000 units SC Q8 [facility] PRN Reason: Protocol Last Admin: 03/22/17 05:39 Dose: 5,000 units Hydralazine HCl (Apresoline) 10 mg IVP Q4H PRN PRN Reason: BPs>160 Last Admin: 03/21/17 08:58 Dose: 10 mg Hydromorphone HCl (Dilaudid) 1 mg IVP Q4H PRN PRN Reason: Pain, severe (8-10) Metronidazole (Flagyl) 250 mg in 50 mls @ 100 mls/hr IVPB Q8 [facility] PRN Reason: Protocol Stop: 03/23/17 15:01 Last Admin: 03/22/17 05:40 Dose: 100 mls/hr Propofol (Diprivan) 1,000 mg in 100 mls @ 4.744 mls/hr IV .Q21H5M PRN; Protocol ; 5 MCG/KG/MIN PRN Reason: TITRATE PER MD ORDER Last Titration: 03/19/17 22:22 Dose: 0 mcg/kg/min, 0 mls/hr Lactated Ringer's (Lactated Ringer's) 1,000 mls @ 150 mls/hr IV .Q6H40M [facility] Last Admin: 03/21/17 21:01 Dose: 150 mls/hr Dexmedetomidine HCl (Precedex 4 Mcg/Ml (100 Ml)) 400 mcg in 100 mls @ 7.906 mls /hr IV .[id number] PRN; Protocol; 0.2 MCG/KG/HR PRN Reason: Agitation Last Titration: 03/19/17 21:30 Dose: 0 mcg/kg/hr, 0 mls/hr Fentanyl Citrate (Fentanyl Citrate/Sodium Chloride 1 Mg/100 Ml) 1,000 mcg in 100 mls @ 7.5 mls/hr IV .[id number] PRN; Protocol; 75 MCG/HR PRN Reason: TITRATE PER MD ORDER Last Titration: 03/19/17 21:30 Dose: 0 mcg/hr, 0 mls/hr Ceftriaxone Sodium 1 gm/ (Sodium Chloride) 100 mls @ 200 mls/hr IVPB DAILY [facility] PRN Reason: Protocol Last Admin: 03/22/17 10:40 Dose: 200 mls/hr Losartan Potassium (Cozaar) 100 mg PO DAILY [facility] Last Admin: 03/22/17 09:56 Dose: 100 mg Ondansetron HCl (Zofran Inj) 4 mg IVP Q6H PRN PRN Reason: Nausea/Vomiting Last Admin: 03/19/17 00:05 Dose: 4 mg Oxycodone/Acetaminophen (Percocet 10/325 Mg Tab) 3 tab PO Q4H [facility] Pantoprazole Sodium (Protonix Inj) 40 mg IVP DAILY [facility] Last Admin: 03/22/17 10:23 Dose: 40 mg - Labs Labs: 03/22/17 08:20 03/22/17 08:20 PT 10.9 SECONDS (9.4-12.5) 03/18/17 04:20 INR 1.00 (0.93-1.08) 03/18/17 04:20 APTT 29.6 Seconds (25.1-36.5) 03/18/17 04:20 - Constitutional Appears: No Acute Distress - Head Exam Head Exam: ATRAUMATIC, NORMAL INSPECTION, NORMOCEPHALIC - Eye Exam Eye Exam: EOMI, PERRL - ENT Exam ENT Exam: Mucous Membranes Moist - Respiratory Exam Respiratory Exam: NORMAL BREATHING PATTERN. absent: Wheezes - Cardiovascular Exam Cardiovascular Exam: REGULAR RHYTHM, +S1, +S2 - GI/Abdominal Exam GI & Abdominal Exam: Distended, Soft, Tenderness (associated with midline incision and GEE drain site, no drainage, erythema, or elevated temp associated with either site), Normal Bowel Sounds. absent: Guarding, Rigid Additional comments: Incision site is c/d/i, GEE drain with serosanguenous fluid - Extremities Exam Extremities Exam: absent: Calf Tenderness, Pedal Edema - Neurological Exam Neurological Exam: Alert, Awake, Oriented x3 - Psychiatric Exam Psychiatric exam: Normal Affect, Normal Mood - Skin Skin Exam: Dry, Intact. absent: Rash Assessment and Plan - Assessment and Plan (Free Text) Assessment: 52M s/p ex-lap w/ reduction of ventral hernia with mesh POD#3 Plan: - Monitor bowel function - pain control with home schedule of oxycodone - anti-emetic PRN - clear liquid diet, reassess tomorrow for potential advancement - substance abuse withdrawal precaution - Encourage ambulation, will consult PT - Incentive Plan to discuss with Dr. Dennis
--- NOTE | 2017-03-22 14:16 | CP.PCM.PN ---
<Paulina Zelaya - Last Filed: 03/22/17 14:12> Subjective - Date & Time of Evaluation Date of Evaluation: 03/22/17 Time of Evaluation: 14:12 - Subjective Subjective: Paulina Zelaya, PGY1, Medicine Progress Note for Dr Napoles: Patient seen and examined at bedside. No acute events overnight. Patient has been passing gas. Finley catheter and NGT discontinued yesterday. States that his cough is improving, denies fever, chills, nausea, vomiting, diaphoresis, palpitations, cp, leg swelling. States that his abdominal incisional site in painful, but controlled on pain meds. States that he would like to walk too. Objective - Vital Signs/Intake and Output Vital Signs (last 24 hours): Temp Pulse Resp BP Pulse Ox 98.2 F 89 20 168/99 H 93 L 03/22/17 13:01 03/22/17 13:01 03/22/17 13:01 03/22/17 13:01 03/21/17 20:30 Intake and Output: 03/22/17 03/22/17 06:59 18:59 Intake Total 1650 Output Total 510 Balance 1140 - Medications Medications: Current Medications Albuterol/Ipratropium (Duoneb 3 Mg/0.5 Mg (3 Ml) Ud) 3 ml IH [id number] PRN PRN Reason: Wheezing Albuterol/Ipratropium (Duoneb 3 Mg/0.5 Mg (3 Ml) Ud) 3 ml IH [id number] [facility] Last Admin: 03/22/17 13:29 Dose: 3 ml Amlodipine Besylate (Norvasc) 10 mg PO DAILY [facility] Last Admin: 03/22/17 09:54 Dose: 10 mg Benzocaine/Menthol (Cepacol Sore Throat) 1 dalia MT Q2H PRN PRN Reason: Sore Throat Budesonide (Pulmicort Respules) 0.5 mg IH [id number] [facility] Last Admin: 03/22/17 07:30 Dose: 0.5 mg Clonidine HCl (Catapres) 0.2 mg PO TID [facility] Last Admin: 03/22/17 09:55 Dose: 0.2 mg Heparin Sodium (Porcine) (Heparin) 5,000 units SC Q8 [facility] PRN Reason: Protocol Last Admin: 03/22/17 05:39 Dose: 5,000 units Hydralazine HCl (Apresoline) 10 mg IVP Q4H PRN PRN Reason: BPs>160 Last Admin: 03/21/17 08:58 Dose: 10 mg Hydromorphone HCl (Dilaudid) 1 mg IVP Q4H PRN PRN Reason: Pain, severe (8-10) Lactated Ringer's (Lactated Ringer's) 1,000 mls @ 150 mls/hr IV .Q6H40M [facility] Last Admin: 03/22/17 12:34 Dose: 150 mls/hr Levofloxacin/Dextrose (Levaquin 500mg) 500 mg in 100 mls @ 100 mls/hr IVPB DAILY [facility] PRN Reason: Protocol Losartan Potassium (Cozaar) 100 mg PO DAILY [facility] Last Admin: 03/22/17 09:56 Dose: 100 mg Metronidazole (Flagyl) 250 mg PO Q8 [facility] Stop: 03/23/17 15:01 Nicotine (Nicoderm Cq) 1 patch TD DAILY [facility] Ondansetron HCl (Zofran Inj) 4 mg IVP Q6H PRN PRN Reason: Nausea/Vomiting Last Admin: 03/19/17 00:05 Dose: 4 mg Oxycodone HCl (Oxycodone Immediate Release Tab) 30 mg PO Q6H [facility] Pantoprazole Sodium (Protonix Ec Tab) 40 mg PO ACB [facility] - Labs Labs: 03/22/17 08:20 03/22/17 08:20 PT 10.9 SECONDS (9.4-12.5) 03/18/17 04:20 INR 1.00 (0.93-1.08) 03/18/17 04:20 APTT 29.6 Seconds (25.1-36.5) 03/18/17 04:20 - Additional Findings Additional findings: - Constitutional Appears: In Acute Distress, Other (morbidly obese male) - Head Exam Head Exam: ATRAUMATIC, NORMOCEPHALIC - Eye Exam Eye Exam: EOMI, PERRL. absent: Conjunctival injection, Scleral icterus Pupil Exam: NORMAL ACCOMODATION, PERRL - ENT Exam ENT Exam: Mucous Membranes Moist - Neck Exam Neck Exam: Full ROM - Respiratory Exam Respiratory Exam: mild crackles in RLL absent: Accessory Muscle Use, Respiratory Distress - Cardiovascular Exam Cardiovascular Exam: RRR. +S1, +S2. absent: Murmur - GI/Abdominal Exam GI & Abdominal Exam: midabdominal site maya intact, no surrounding erythema, drainage or warmth. normal BS, soft, nondistended. No guarding, rebound. - Extremities Exam Extremities Exam: absent: Calf Tenderness, Pedal Edema - Back Exam Back Exam: NORMAL INSPECTION - Neurological Exam Neurological Exam: Alert, Awake, Oriented x3 - Psychiatric Exam Psychiatric exam: Anxious, Normal Affect - Skin Skin Exam: Dry, Normal Color, Warm Assessment and Plan - Assessment and Plan (Free Text) Assessment: 52 yo male whose past medical history includes HTN, ventral hernia, tobacco use , and asthma, presents to the ED c/o abdominal pain likely 2/2 suspicious incarcerated hernia and SBO. S/p ex-lap for reduction of small bowel incarceration and ventral hernia repair x2, POD#2, also found to have RLL asp pneumonitis post procedure. Currently well covered on Flagyl and Levaquin. Pt doing well post surgery, passing gas. Will advance to CLD diet and monitor. Abd pain 2/2 suspicious incarcerated hernia, s/p hernia repair and reduction POD #3 - Started CLD as per surgery. Cont to monitor. - pain control home med oxycodone. - Zofran PRN - LR @ 125 - CT abd/pelvis: moderate fat containing ventral abdominal wall hernia. There is bowel containing ventral abdominal wall hernia with surrounding bowel wall thickening infiltration and resultant small bowel obstruction, suspicious for incarcerated ventral hernia. Small amount of free pelvic fluid. - HD stable, no leukocytosis. - trend daily cbc, cmp. - C/w IV abx Flagyl D4 - s/p 4 days of Rocephin, will discontinue today (due to rising ASt 101 (prev 66 )) and instead start Levaquin IV D1. - PT eval Transaminitis: 2/2 likely drug induced (rocephin) - AST 29 on admission ->66-> 101 today - ALT 25 ->32-> 50 - Switched rocephin to Levaquin. RLL Asp Pneumonia: - likely with anesthesia during ex lap - s/p 4 days of Rocephin - C/w Flagyl D3 and Levaquin D1. Hypoxia, resolved 2/2 likely sepsis vs CHF - Pt self extubated yesterday overnight after OR ex-lap. On non-rebreather, saturating well. will wean down as tolerated - BNP nrml - Echo showed EF 65%. mild to moderate LVH. Mild aortic regurg, aortic root mildly enlarged, Mild TR/pulmonary hypertension Asthma - Duonebs q6h [place], Duonebs Q4H PRN - Pulmicort - Cont to monitor HTN - On Clonidine 0.2 mg tid. Started Norvasc 5 mg daily and Losartan [address] Gilmore. - Dr Gilmore consulted. Appreciate recs. Recommends work up for adrenal adenoma later. - Cont to monitor Hx of tobacco abuse: - Nicotine patch Hx of Drug/etoh abuse: - Utox + Cocaine, and opiods - Received 10 mg Methadone 03/18 for withdrawal symptoms - Cont to monitor for withdrawals - Advised patient on alcohol/smoking and drug cessation. GI/DVT px - Protonix and Hep Sq Case and plan was reviewed and discussed with Dr Napoles. Paulina Zelaya, PGY1 <Zheng Napoles - Last Filed: 03/23/17 12:26> Objective - Vital Signs/Intake and Output Vital Signs (last 24 hours): Temp Pulse Resp BP Pulse Ox 98.7 F 88 22 159/114 H 93 L 03/23/17 06:00 03/23/17 06:01 03/23/17 06:00 03/23/17 06:01 03/23/17 06:00 Intake and Output: 03/23/17 03/23/17 06:59 18:59 Intake Total 2070 Output Total 675 Balance 1395 - Medications Medications: Current Medications Albuterol/Ipratropium (Duoneb 3 Mg/0.5 Mg (3 Ml) Ud) 3 ml IH [id number] PRN PRN Reason: Wheezing Albuterol/Ipratropium (Duoneb 3 Mg/0.5 Mg (3 Ml) Ud) 3 ml IH [id number] [facility] Last Admin: 03/23/17 08:10 Dose: 3 ml Amlodipine Besylate (Norvasc) 10 mg PO DAILY [facility] Last Admin: 03/23/17 09:09 Dose: 10 mg Benzocaine/Menthol (Cepacol Sore Throat) 1 dalia MT Q2H PRN PRN Reason: Sore Throat Bisacodyl (Dulcolax) 5 mg PO DAILY [facility] Last Admin: 03/23/17 09:11 Dose: 5 mg Budesonide (Pulmicort Respules) 0.5 mg IH [id number] [facility] Last Admin: 03/23/17 08:11 Dose: 0.5 mg Clonidine HCl (Catapres) 0.3 mg PO TID [facility] Last Admin: 03/23/17 09:10 Dose: 0.3 mg Heparin Sodium (Porcine) (Heparin) 5,000 units SC Q8 [facility] PRN Reason: Protocol Last Admin: 03/23/17 06:03 Dose: 5,000 units Hydralazine HCl (Apresoline) 10 mg IVP Q4H PRN PRN Reason: BPs>160 Last Admin: 03/23/17 06:01 Dose: 10 mg Hydralazine HCl (Apresoline) 10 mg PO Q6H PRN PRN Reason: Systolic Blood Pressure Hydromorphone HCl (Dilaudid) 2 mg IM Q6H PRN PRN Reason: Pain, moderate (4-7) Levofloxacin (Levaquin) 500 mg PO DAILY [facility] PRN Reason: Protocol Losartan Potassium (Cozaar) 100 mg PO DAILY [facility] Last Admin: 03/23/17 09:10 Dose: 100 mg Metronidazole (Flagyl) 250 mg PO Q8 [facility] Stop: 03/23/17 15:01 Last Admin: 03/23/17 06:03 Dose: 250 mg Nicotine (Nicoderm Cq) 1 patch TD DAILY [facility] Last Admin: 03/23/17 09:09 Dose: 1 patch Ondansetron HCl (Zofran Inj) 4 mg IVP Q6H PRN PRN Reason: Nausea/Vomiting Last Admin: 03/19/17 00:05 Dose: 4 mg Oxycodone HCl (Oxycodone Immediate Release Tab) 30 mg PO Q6H [facility] Last Admin: 03/23/17 06:04 Dose: 30 mg Pantoprazole Sodium (Protonix Ec Tab) 40 mg PO ACB [facility] Last Admin: 03/23/17 09:10 Dose: 40 mg - Labs Labs: 03/23/17 08:00 03/23/17 08:00 PT 10.9 SECONDS (9.4-12.5) 03/18/17 04:20 INR 1.00 (0.93-1.08) 03/18/17 04:20 APTT 29.6 Seconds (25.1-36.5) 03/18/17 04:20 Attending/Attestation - Attestation I have personally seen and examined this patient.: Yes I have fully participated in the care of the patient.: Yes I have reviewed all pertinent clinical information, including history, physical exam and plan: Yes Notes (Text): 03/23/17 12:15 Patient was seen and examined with biomedical equipment specialist. 52 Male with PMH of hypertension , morbid obesity, substance abuse with opiates and cocaine, chronic smoker was admitted with of abdominal pain and was found to have incarcerated ventral hernia .He is s/p Ex lap and reduction of hernia. r.He is on room air.He is started on clear liquid diet.Surgery is following. He is afebrile, feeling sofiya.Cultures are negative for any growth. Blood pressure medications are adjusted, we will monitor and adjust medications. Management plan was discussed in detail with patient. Education was provided.
[2017-03-22] MEDS: oxyCODONE 30 mg Immediate Release Tab PO SCH ×2 (14:18→18:18)
[2017-03-22] MEDS: levoFLOXacin 500 mg in D5W 500 MG/100 ML BAG IVPB SCH (14:19)
[2017-03-22] MEDS: Bisacodyl 5mg EC Tab PO SCH (18:16)
[2017-03-23] MEDS: oxyCODONE 30 mg Immediate Release Tab PO SCH ×4 (00:45→18:52)
[2017-03-23] MEDS: Albuterol-Ipratrop 3 mg / 0.5 (3 ml) UD IH SCH ×4 (00:59→19:38)
[2017-03-23] MEDS: Lactated Ringer's 1,000 ML IV SCH ×2 (03:45→09:32)
[2017-03-23] MEDS: HYDROmorphone 1 mg/ml ISec IVP PRN ×2 (04:02→09:16)
[2017-03-23] MEDS: Budesonide 0.5 mg/2 ml Inhal Susp UD IH SCH ×2 (08:11→19:39)
[2017-03-23 08:26] LABS: BASO # 0.02 K/mm3 (0.0-2.0); BASO % 0.2 % (0.0-3.0); EOS # 0.4 (0.0-0.7); EOS % 3.4 % (1.5-5.0); GRAN # 7.03 (1.4-6.5); GRAN % 66.9 % (50.0-68.0); HEMOGLOBIN 13.5 g/dL (14.0-18.0); LYMPH % 18.7 % (22.0-35.0); MEAN CORPUSCULAR HEMOGLOBIN 27.3 pg (25.0-35.0); MEAN CORPUSCULAR HGB CONC 33.3 g/dl (31.0-37.0); MEAN PLATELET VOLUME 8.4 fl (7.0-11.0); MONO # 1.1 (0.1-0.6); MONO % 10.8 % (1.0-6.0); RBC 4.95 10^6/uL (3.5-6.1); RED CELL DISTRIBUTION WIDTH 15.1 % (11.5-14.5); WHITE BLOOD COUNT 10.5 10^3/ul (4.5-11.0)
[2017-03-23 08:40] LABS: ALBUMIN 3.4 g/dL (3.0-4.8); ALT/SGPT 56 U/L (7-56); AST/SGOT 91 U/L (17-59); BLOOD UREA NITROGEN 11 mg/dL (7-21); CALCIUM 9.1 mg/dL (8.4-10.5); GFR AFRICAN-AMERICAN > 60; GFR NON-AFRICAN AMERICAN > 60; MAGNESIUM 1.8 mg/dL (1.7-2.2)
[2017-03-23] MEDS: Pantoprazole 40 mg EC Tab PO SCH (09:10)
[2017-03-23] MEDS: Bisacodyl 5mg EC Tab PO SCH (09:11)
[2017-03-23] MEDS: levoFLOXacin 500 mg in D5W 500 MG/100 ML BAG IVPB SCH (09:28)
[2017-03-23] MEDS ORDERED: Potassium Chloride 20 mEq ER Tab PO ONE (10:56)
--- NOTE | 2017-03-23 11:43 | CP.PCM.PN ---
<Paulina Zelaya - Last Filed: 03/23/17 11:39> Subjective - Date & Time of Evaluation Date of Evaluation: 03/23/17 Time of Evaluation: 11:39 - Subjective Subjective: Paulina Zelaya, PGY1, Medicine Progress Note for Dr Napoles: Patient seen and examined at bedside. No acute events overnight. Denies fever, chills, nausea, vomiting, diarrhea, constipation, urinary complaints. Patient' s abdominal pain is getting better, pt is ambulating in his room and getting out of bed to chair. Pt had a large BM this AM. States that he is hungry and would like more than the liquids. Objective - Vital Signs/Intake and Output Vital Signs (last 24 hours): Temp Pulse Resp BP Pulse Ox 98.7 F 88 22 159/114 H 93 L 03/23/17 06:00 03/23/17 06:01 03/23/17 06:00 03/23/17 06:01 03/23/17 06:00 Intake and Output: 03/23/17 03/23/17 06:59 18:59 Intake Total 2070 Output Total 675 Balance 1395 - Medications Medications: Current Medications Albuterol/Ipratropium (Duoneb 3 Mg/0.5 Mg (3 Ml) Ud) 3 ml IH [id number] PRN PRN Reason: Wheezing Albuterol/Ipratropium (Duoneb 3 Mg/0.5 Mg (3 Ml) Ud) 3 ml IH [id number] [facility] Last Admin: 03/23/17 08:10 Dose: 3 ml Amlodipine Besylate (Norvasc) 10 mg PO DAILY [facility] Last Admin: 03/23/17 09:09 Dose: 10 mg Benzocaine/Menthol (Cepacol Sore Throat) 1 dalia MT Q2H PRN PRN Reason: Sore Throat Bisacodyl (Dulcolax) 5 mg PO DAILY [facility] Last Admin: 03/23/17 09:11 Dose: 5 mg Budesonide (Pulmicort Respules) 0.5 mg IH [id number] [facility] Last Admin: 03/23/17 08:11 Dose: 0.5 mg Clonidine HCl (Catapres) 0.3 mg PO TID [facility] Last Admin: 03/23/17 09:10 Dose: 0.3 mg Heparin Sodium (Porcine) (Heparin) 5,000 units SC Q8 [facility] PRN Reason: Protocol Last Admin: 03/23/17 06:03 Dose: 5,000 units Hydralazine HCl (Apresoline) 10 mg IVP Q4H PRN PRN Reason: BPs>160 Last Admin: 03/23/17 06:01 Dose: 10 mg Hydralazine HCl (Apresoline) 10 mg PO Q6H PRN PRN Reason: Systolic Blood Pressure Hydromorphone HCl (Dilaudid) 2 mg IM Q6H PRN PRN Reason: Pain, moderate (4-7) Levofloxacin (Levaquin) 500 mg PO DAILY [facility] PRN Reason: Protocol Losartan Potassium (Cozaar) 100 mg PO DAILY [facility] Last Admin: 03/23/17 09:10 Dose: 100 mg Metronidazole (Flagyl) 250 mg PO Q8 [facility] Stop: 03/23/17 15:01 Last Admin: 03/23/17 06:03 Dose: 250 mg Nicotine (Nicoderm Cq) 1 patch TD DAILY [facility] Last Admin: 03/23/17 09:09 Dose: 1 patch Ondansetron HCl (Zofran Inj) 4 mg IVP Q6H PRN PRN Reason: Nausea/Vomiting Last Admin: 03/19/17 00:05 Dose: 4 mg Oxycodone HCl (Oxycodone Immediate Release Tab) 30 mg PO Q6H [facility] Last Admin: 03/23/17 06:04 Dose: 30 mg Pantoprazole Sodium (Protonix Ec Tab) 40 mg PO ACB [facility] Last Admin: 03/23/17 09:10 Dose: 40 mg - Labs Labs: 03/23/17 08:00 03/23/17 08:00 PT 10.9 SECONDS (9.4-12.5) 03/18/17 04:20 INR 1.00 (0.93-1.08) 03/18/17 04:20 APTT 29.6 Seconds (25.1-36.5) 03/18/17 04:20 - Additional Findings Additional findings: - Constitutional Appears: In Acute Distress, Other (morbidly obese male) - Head Exam Head Exam: ATRAUMATIC, NORMOCEPHALIC - Eye Exam Eye Exam: EOMI, PERRL. absent: Conjunctival injection, Scleral icterus Pupil Exam: NORMAL ACCOMODATION, PERRL - ENT Exam ENT Exam: Mucous Membranes Moist - Neck Exam Neck Exam: Full ROM - Respiratory Exam Respiratory Exam: CTA b/l absent: Accessory Muscle Use, Respiratory Distress - Cardiovascular Exam Cardiovascular Exam: RRR. +S1, +S2. absent: Murmur - GI/Abdominal Exam GI & Abdominal Exam: midabdominal site maya intact, no surrounding erythema, drainage or warmth. normal BS, soft, nondistended. No guarding, rebound. - Extremities Exam Extremities Exam: absent: Calf Tenderness, Pedal Edema - Back Exam Back Exam: NORMAL INSPECTION - Neurological Exam Neurological Exam: Alert, Awake, Oriented x3 - Psychiatric Exam Psychiatric exam: Anxious, Normal Affect - Skin Skin Exam: Dry, Normal Color, Warm Assessment and Plan - Assessment and Plan (Free Text) Assessment: 52 yo male whose past medical history includes HTN, ventral hernia, tobacco use , and asthma, presents to the ED c/o abdominal pain likely 2/2 suspicious incarcerated hernia and SBO. S/p ex-lap for reduction of small bowel incarceration and ventral hernia repair x2, POD#4, also found to have RLL asp pneumonitis post procedure. Currently well covered on Flagyl and Levaquin. Pt tolerating CLD well. Await surgery for further recs regarding his diet. Abd pain 2/2 suspicious incarcerated hernia, s/p hernia repair and reduction POD #4 - Tolerated CLD well yesterday. Advance as per surgery. - pain control home med oxycodone and po dilaudid. Pt states that he needs them especially while he is trying to ambulate. - LR @ 125 - CT abd/pelvis: moderate fat containing ventral abdominal wall hernia. There is bowel containing ventral abdominal wall hernia with surrounding bowel wall thickening infiltration and resultant small bowel obstruction, suspicious for incarcerated ventral hernia. Small amount of free pelvic fluid. - HD stable, no leukocytosis. - C/w Flagyl D5 and Levaquin D2. s/p 4 days of Ceftriaxone (d/cd due to rising LFTs). - Pt ambulating in his room and OOB to chair. Ensure safety with PT eval, since newly postop. Transaminitis: 2/2 likely drug induced (rocephin) - AST 29 on admission ->66-> 101->91 today - ALT 56 - Switched rocephin to Levaquin. RLL Asp Pneumonia: - likely with anesthesia during ex lap - s/p 4 days of Rocephin - C/w Flagyl D4 and Levaquin D2. Switched to PO. Hypoxia, resolved 2/2 likely sepsis vs CHF - Pt self extubated yesterday overnight after OR ex-lap. On non-rebreather, saturating well. will wean down as tolerated - BNP nrml - Echo showed EF 65%. mild to moderate LVH. Mild aortic regurg, aortic root mildly enlarged, Mild TR/pulmonary hypertension Asthma - Duonebs q6h [place], Duonebs Q4H PRN - Pulmicort - Cont to monitor HTN - On Clonidine 0.2 mg tid. Started Norvasc 5 mg daily and Losartan [address] Gilmore. - Dr Gilmore consulted. Appreciate recs. Recommends work up for adrenal adenoma later. - Cont to monitor Hx of tobacco abuse: - Nicotine patch Hx of Drug/etoh abuse: - Utox + Cocaine, and opiods - Received 10 mg Methadone 03/18 for withdrawal symptoms - Cont to monitor for withdrawals - Advised patient on alcohol/smoking and drug cessation. GI/DVT px - Protonix and Hep Sq Case and plan was reviewed and discussed with Dr Napoles. Paulina Zelaya, PGY1 <Zheng Napoles - Last Filed: 03/23/17 12:34> Objective - Vital Signs/Intake and Output Vital Signs (last 24 hours): Temp Pulse Resp BP Pulse Ox 98.7 F 88 22 159/114 H 93 L 03/23/17 06:00 03/23/17 06:01 03/23/17 06:00 03/23/17 06:01 03/23/17 06:00 Intake and Output: 03/23/17 03/23/17 06:59 18:59 Intake Total 2070 Output Total 675 Balance 1395 - Medications Medications: Current Medications Albuterol/Ipratropium (Duoneb 3 Mg/0.5 Mg (3 Ml) Ud) 3 ml IH [id number] PRN PRN Reason: Wheezing Albuterol/Ipratropium (Duoneb 3 Mg/0.5 Mg (3 Ml) Ud) 3 ml IH [id number] [facility] Last Admin: 03/23/17 08:10 Dose: 3 ml Amlodipine Besylate (Norvasc) 10 mg PO DAILY [facility] Last Admin: 03/23/17 09:09 Dose: 10 mg Benzocaine/Menthol (Cepacol Sore Throat) 1 dalia MT Q2H PRN PRN Reason: Sore Throat Bisacodyl (Dulcolax) 5 mg PO DAILY [facility] Last Admin: 03/23/17 09:11 Dose: 5 mg Budesonide (Pulmicort Respules) 0.5 mg IH [id number] [facility] Last Admin: 03/23/17 08:11 Dose: 0.5 mg Clonidine HCl (Catapres) 0.3 mg PO TID [facility] Last Admin: 03/23/17 09:10 Dose: 0.3 mg Heparin Sodium (Porcine) (Heparin) 5,000 units SC Q8 [facility] PRN Reason: Protocol Last Admin: 03/23/17 06:03 Dose: 5,000 units Hydralazine HCl (Apresoline) 10 mg IVP Q4H PRN PRN Reason: BPs>160 Last Admin: 03/23/17 06:01 Dose: 10 mg Hydralazine HCl (Apresoline) 10 mg PO Q6H PRN PRN Reason: Systolic Blood Pressure Hydromorphone HCl (Dilaudid) 2 mg IM Q6H PRN PRN Reason: Pain, moderate (4-7) Levofloxacin (Levaquin) 500 mg PO DAILY [facility] PRN Reason: Protocol Last Admin: 03/23/17 12:07 Dose: Not Given Losartan Potassium (Cozaar) 100 mg PO DAILY [facility] Last Admin: 03/23/17 09:10 Dose: 100 mg Metronidazole (Flagyl) 250 mg PO Q8 [facility] Stop: 03/23/17 15:01 Last Admin: 03/23/17 06:03 Dose: 250 mg Nicotine (Nicoderm Cq) 1 patch TD DAILY [facility] Last Admin: 03/23/17 09:09 Dose: 1 patch Ondansetron HCl (Zofran Inj) 4 mg IVP Q6H PRN PRN Reason: Nausea/Vomiting Last Admin: 03/19/17 00:05 Dose: 4 mg Oxycodone HCl (Oxycodone Immediate Release Tab) 30 mg PO Q6H [facility] Last Admin: 03/23/17 12:14 Dose: 30 mg Pantoprazole Sodium (Protonix Ec Tab) 40 mg PO ACB [facility] Last Admin: 03/23/17 09:10 Dose: 40 mg - Labs Labs: 03/23/17 08:00 03/23/17 08:00 PT 10.9 SECONDS (9.4-12.5) 03/18/17 04:20 INR 1.00 (0.93-1.08) 03/18/17 04:20 APTT 29.6 Seconds (25.1-36.5) 03/18/17 04:20 Attending/Attestation - Attestation I have personally seen and examined this patient.: Yes I have fully participated in the care of the patient.: Yes I have reviewed all pertinent clinical information, including history, physical exam and plan: Yes Notes (Text): 03/23/17 12:34 Patient was seen and examined with biomedical electronics technician. Agreed with resident assessment and plan. Management plan was discussed in detail with patient Education was provided.
--- NOTE | 2017-03-23 11:59 | CP.PCM.PN ---
Subjective - Date & Time of Evaluation Date of Evaluation: 03/23/17 Time of Evaluation: 11:57 - Subjective Subjective: Surgery Pt s&e. NAEON. HAd BM. Pain controlled. + OOB. Tolerating diet. Denies F/C?N/V/D /CP/SOB. Objective - Vital Signs/Intake and Output Vital Signs (last 24 hours): Temp Pulse Resp BP Pulse Ox 98.7 F 88 22 159/114 H 93 L 03/23/17 06:00 03/23/17 06:01 03/23/17 06:00 03/23/17 06:01 03/23/17 06:00 Intake and Output: 03/23/17 03/23/17 06:59 18:59 Intake Total 2070 Output Total 675 Balance 1395 - Medications Medications: Current Medications Albuterol/Ipratropium (Duoneb 3 Mg/0.5 Mg (3 Ml) Ud) 3 ml IH [id number] PRN PRN Reason: Wheezing Albuterol/Ipratropium (Duoneb 3 Mg/0.5 Mg (3 Ml) Ud) 3 ml IH [id number] [facility] Last Admin: 03/23/17 08:10 Dose: 3 ml Amlodipine Besylate (Norvasc) 10 mg PO DAILY [facility] Last Admin: 03/23/17 09:09 Dose: 10 mg Benzocaine/Menthol (Cepacol Sore Throat) 1 dalia MT Q2H PRN PRN Reason: Sore Throat Bisacodyl (Dulcolax) 5 mg PO DAILY [facility] Last Admin: 03/23/17 09:11 Dose: 5 mg Budesonide (Pulmicort Respules) 0.5 mg IH [id number] [facility] Last Admin: 03/23/17 08:11 Dose: 0.5 mg Clonidine HCl (Catapres) 0.3 mg PO TID [facility] Last Admin: 03/23/17 09:10 Dose: 0.3 mg Heparin Sodium (Porcine) (Heparin) 5,000 units SC Q8 [facility] PRN Reason: Protocol Last Admin: 03/23/17 06:03 Dose: 5,000 units Hydralazine HCl (Apresoline) 10 mg IVP Q4H PRN PRN Reason: BPs>160 Last Admin: 03/23/17 06:01 Dose: 10 mg Hydralazine HCl (Apresoline) 10 mg PO Q6H PRN PRN Reason: Systolic Blood Pressure Hydromorphone HCl (Dilaudid) 2 mg IM Q6H PRN PRN Reason: Pain, moderate (4-7) Levofloxacin (Levaquin) 500 mg PO DAILY [facility] PRN Reason: Protocol Losartan Potassium (Cozaar) 100 mg PO DAILY [facility] Last Admin: 03/23/17 09:10 Dose: 100 mg Metronidazole (Flagyl) 250 mg PO Q8 [facility] Stop: 03/23/17 15:01 Last Admin: 03/23/17 06:03 Dose: 250 mg Nicotine (Nicoderm Cq) 1 patch TD DAILY [facility] Last Admin: 03/23/17 09:09 Dose: 1 patch Ondansetron HCl (Zofran Inj) 4 mg IVP Q6H PRN PRN Reason: Nausea/Vomiting Last Admin: 03/19/17 00:05 Dose: 4 mg Oxycodone HCl (Oxycodone Immediate Release Tab) 30 mg PO Q6H [facility] Last Admin: 03/23/17 06:04 Dose: 30 mg Pantoprazole Sodium (Protonix Ec Tab) 40 mg PO ACB [facility] Last Admin: 03/23/17 09:10 Dose: 40 mg - Labs Labs: 03/23/17 08:00 03/23/17 08:00 PT 10.9 SECONDS (9.4-12.5) 03/18/17 04:20 INR 1.00 (0.93-1.08) 03/18/17 04:20 APTT 29.6 Seconds (25.1-36.5) 03/18/17 04:20 - Constitutional Appears: No Acute Distress - Head Exam Head Exam: ATRAUMATIC, NORMAL INSPECTION, NORMOCEPHALIC - Eye Exam Eye Exam: EOMI, Normal appearance, PERRL Pupil Exam: NORMAL ACCOMODATION, PERRL - ENT Exam ENT Exam: Mucous Membranes Moist, Normal Exam - Neck Exam Neck Exam: Full ROM, Normal Inspection. absent: Lymphadenopathy - Respiratory Exam Respiratory Exam: Clear to Ausculation Bilateral, NORMAL BREATHING PATTERN - Cardiovascular Exam Cardiovascular Exam: REGULAR RHYTHM, +S1, +S2. absent: Murmur - GI/Abdominal Exam GI & Abdominal Exam: Soft, Tenderness, Normal Bowel Sounds. absent: Distended, Firm, Guarding, Rigid Additional comments: Incision C/D/I. Drain in place. SS - Exam Exam: NORMAL INSPECTION - Extremities Exam Extremities Exam: Full ROM, Normal Capillary Refill, Normal Inspection. absent : Joint Swelling, Pedal Edema - Back Exam Back Exam: NORMAL INSPECTION - Neurological Exam Neurological Exam: Alert, Awake, CN II-XII Intact, Oriented x3 - Psychiatric Exam Psychiatric exam: Normal Affect, Normal Mood - Skin Skin Exam: Dry, Intact, Normal Color, Warm Assessment and Plan - Assessment and Plan (Free Text) Assessment: 52M s/p ex-lap w/ reduction of ventral hernia with mesh POD#4 Pt having BM. Plan: -Clear for DC for surgical stanpoint. - Monitor bowel function - pain control with home schedule of oxycodone - anti-emetic PRN - substance abuse withdrawal precaution - Encourage ambulation, PT - Incentive spirometer. Plan to discuss with Dr. Dennis
[2017-03-23] MEDS: levoFLOXacin 500 MG TAB PO SCH (12:07)
[2017-03-23] MEDS: HYDROmorphone 2 mg/ml ISec IM PRN (15:03)
--- NOTE | 2017-03-23 16:35 | CP.PCM.PN ---
Subjective - Date & Time of Evaluation Date of Evaluation: 03/23/17 Time of Evaluation: 16:32 - Subjective Subjective: Follow up Nephrology Consultation: Assessment: Stable Uncontrolled severe HTN with urgency (likely multi-factorial: cocaine, drug withdrawal, non-compliance to meds, current stresses as illness, surgery, pain) Morbid obesity, sedentary lifestyle Right adrenal gland nodular thickening and left adrenal gland 2.7 cm stable adenoma r/o hypersecretory adenoma Hypokalemia polysubstance abuse with opiates, cocaine, tobacco ventral hernia s/p Ex lap Pneumonia chronic respi acidosis due to CO2 retention with appropriate metabolic compensation Plan Hypertension control with meds as ordered. continue with losartan 100 mg and also norvasc 10 mg. will start labetalol 200 bid . agree with IV hydralazine as prn. don't favor clonidine for gerentological physiotherapist bp control considering his non- compliance. Once BP better controlled then would try to taper it off KDUR 40 meq today Monitor Input/Output, daily weights and renal function with basic metabolic panel work up for adrenal adenoma: check renin/lauro/metanephrine in AM: follow up as outpt weight loss, lifestyle modifications and diet d/w patient and smoking cessation and to abstain from drugs Dose meds/antibiotics for normal GFR. Glycemic control. Further work up/ management as per primary team Thanks for allowing me to participate in care of your patient. Will follow patient with you. Please call if any Qs Dr Aquiles Gilmore Office: [phone] HPI: Pt is a 52 M with hx of hypertension (couple of years) hasn't been taking his BP meds for at-least 1 month, morbid obesity, substance abuse with opiates and cocaine, current active smoker presented with initially with complaints of pain abdomen and was found to have incarcerated ventral hernia s/p Ex lap and reduction of hernia. Pt had self extubated. he was seen in renal consultation for HTN urgency pt feels okay. c/o pain at surgical site. denies SOB/nausea/vomiting father had hx of HTN. pt says usually his BP controlled, sees PCP every 4 months , doesn't check BP at home. aware about low salt diet. doesn't exercise. he is trying to loose weight. doesn't remember name of his home meds. ROS: bedside. Cardiovascular: No chest pain. Pulmonary: No shortness of breath Gastrointestinal: denies abdominal pain No nausea. No vomiting. Genitourinary: No pain while urinating. Denies blood in urine. All other negative Physical Examination: General Appearance: Comfortable, in no acute respiratory distress, co-operative . morbid obese Vitals reviewed and noted as below Head; Atraumatic, normocephalic ENT: no ulcers no thrush. Tongue is midline. Oropharynx: no rash or ulcers. EYES: Pupils are equal, round and reactive to light accommodation. Eye muscles and extraocular movement intact. Sclera is anicteric. Neck; supple no lymphadenopathy, no thyromegaly or bruit Lungs: Normal respiratory rate/effort. Breath sounds bilateral equal and clear Heart: Normal rate. s1s2 normal. No rub or gallop. Extremities: no edema. No varicose veins Neurological: Patient is alert, awake and oriented to person, place and time. No focal deficit. Strength bilateral appropriate and equal Skin: Warm and dry. Normal turgor. No rash. Palpitation: Normal elasticity for age Abdomen: Abdomen is soft. Bowel sounds +. There is no abdominal tenderness, no guarding/rigidity no organomegaly. midline maya + Psych: normal insight and normal affect/mood MSK: no joint tenderness or swelling. Digits and nails normal, no deformity : kidney or bladder not palpable Labs/imaging reviewed. Past medical history, past surgical history, family history, social history, allergy reviewed and noted as below Family hx: no hx of CKD. Rest non-contributory Objective - Vital Signs/Intake and Output Vital Signs (last 24 hours): Temp Pulse Resp BP Pulse Ox 98.7 F 89 22 159/114 H 93 L 03/23/17 06:00 03/23/17 10:00 03/23/17 06:00 03/23/17 06:01 03/23/17 06:00 Intake and Output: 03/23/17 03/23/17 06:59 18:59 Intake Total 2070 480 Output Total 675 Balance 1395 480 - Medications Medications: Current Medications Albuterol/Ipratropium (Duoneb 3 Mg/0.5 Mg (3 Ml) Ud) 3 ml IH [id number] PRN PRN Reason: Wheezing Albuterol/Ipratropium (Duoneb 3 Mg/0.5 Mg (3 Ml) Ud) 3 ml IH [id number] [facility] Last Admin: 03/23/17 13:12 Dose: 3 ml Amlodipine Besylate (Norvasc) 10 mg PO DAILY [facility] Last Admin: 03/23/17 09:09 Dose: 10 mg Benzocaine/Menthol (Cepacol Sore Throat) 1 dalia MT Q2H PRN PRN Reason: Sore Throat Bisacodyl (Dulcolax) 5 mg PO DAILY [facility] Last Admin: 03/23/17 09:11 Dose: 5 mg Budesonide (Pulmicort Respules) 0.5 mg IH [id number] [facility] Last Admin: 03/23/17 08:11 Dose: 0.5 mg Clonidine HCl (Catapres) 0.3 mg PO TID [facility] Last Admin: 03/23/17 15:02 Dose: 0.3 mg Heparin Sodium (Porcine) (Heparin) 5,000 units SC Q8 [facility] PRN Reason: Protocol Last Admin: 03/23/17 15:03 Dose: 5,000 units Hydralazine HCl (Apresoline) 10 mg IVP Q4H PRN PRN Reason: BPs>160 Last Admin: 03/23/17 06:01 Dose: 10 mg Hydralazine HCl (Apresoline) 10 mg PO Q6H PRN PRN Reason: Systolic Blood Pressure Hydromorphone HCl (Dilaudid) 2 mg IM Q6H PRN PRN Reason: Pain, moderate (4-7) Last Admin: 03/23/17 15:03 Dose: 2 mg Levofloxacin (Levaquin) 500 mg PO DAILY [facility] PRN Reason: Protocol Last Admin: 03/23/17 12:07 Dose: Not Given Losartan Potassium (Cozaar) 100 mg PO DAILY [facility] Last Admin: 03/23/17 09:10 Dose: 100 mg Nicotine (Nicoderm Cq) 1 patch TD DAILY [facility] Last Admin: 03/23/17 09:09 Dose: 1 patch Ondansetron HCl (Zofran Inj) 4 mg IVP Q6H PRN PRN Reason: Nausea/Vomiting Last Admin: 03/19/17 00:05 Dose: 4 mg Oxycodone HCl (Oxycodone Immediate Release Tab) 30 mg PO Q6H [facility] Last Admin: 03/23/17 12:14 Dose: 30 mg Pantoprazole Sodium (Protonix Ec Tab) 40 mg PO ACB [facility] Last Admin: 03/23/17 09:10 Dose: 40 mg - Labs Labs: 03/23/17 08:00 03/23/17 08:00 PT 10.9 SECONDS (9.4-12.5) 03/18/17 04:20 INR 1.00 (0.93-1.08) 03/18/17 04:20 APTT 29.6 Seconds (25.1-36.5) 03/18/17 04:20
[2017-03-24] MEDS: oxyCODONE 30 mg Immediate Release Tab PO SCH ×3 (00:36→12:10)
[2017-03-24] MEDS: Albuterol-Ipratrop 3 mg / 0.5 (3 ml) UD IH SCH ×2 (01:59→07:20)
[2017-03-24] MEDS: Budesonide 0.5 mg/2 ml Inhal Susp UD IH SCH (07:20)
[2017-03-24 07:24] LABS: BASO # 0.04 K/mm3 (0.0-2.0); BASO % 0.4 % (0.0-3.0); EOS # 0.7 (0.0-0.7); EOS % 6.1 % (1.5-5.0); GRAN # 6.52 (1.4-6.5); GRAN % 58.3 % (50.0-68.0); HEMOGLOBIN 12.4 g/dL (14.0-18.0); LYMPH # 2.4 (1.2-3.4); LYMPH % 21.6 % (22.0-35.0); MEAN CORPUSCULAR HEMOGLOBIN 26.6 pg (25.0-35.0); MEAN CORPUSCULAR HGB CONC 32.5 g/dl (31.0-37.0); MEAN PLATELET VOLUME 8.6 fl (7.0-11.0); MONO # 1.5 (0.1-0.6); MONO % 13.6 % (1.0-6.0); RBC 4.66 10^6/uL (3.5-6.1); RED CELL DISTRIBUTION WIDTH 15.2 % (11.5-14.5); WHITE BLOOD COUNT 11.2 10^3/ul (4.5-11.0)
[2017-03-24 07:45] LABS: ALT/SGPT 55 U/L (7-56); AST/SGOT 71 U/L (17-59); BLOOD UREA NITROGEN 10 mg/dL (7-21); CALCIUM 8.7 mg/dL (8.4-10.5); GFR AFRICAN-AMERICAN > 60; GFR NON-AFRICAN AMERICAN > 60; MAGNESIUM 1.8 mg/dL (1.7-2.2)
--- NOTE | 2017-03-24 08:09 | CP.PCM.PN ---
Subjective - Date & Time of Evaluation Date of Evaluation: 03/24/17 Time of Evaluation: 06:45 - Subjective Subjective: General Surgery- Dr. Dennis Patient seen and examined at bedside this AM. No acute events overnight. Tolerating diet. Pain well managed. +OOB +flatus and BM. Denies fevers, chills, chest pain, shortness of breath, nausea, vomiting, diarrhea. Objective - Vital Signs/Intake and Output Vital Signs (last 24 hours): Temp Pulse Resp BP Pulse Ox 98.7 F 98 H 22 154/105 H 93 L 03/23/17 06:00 03/23/17 17:27 03/23/17 06:00 03/23/17 17:27 03/23/17 06:00 Intake and Output: 03/24/17 03/24/17 06:59 18:59 Intake Total 480 Output Total 10 Balance 470 - Medications Medications: Current Medications Albuterol/Ipratropium (Duoneb 3 Mg/0.5 Mg (3 Ml) Ud) 3 ml IH [id number] PRN PRN Reason: Wheezing Albuterol/Ipratropium (Duoneb 3 Mg/0.5 Mg (3 Ml) Ud) 3 ml IH [id number] [facility] Last Admin: 03/24/17 07:20 Dose: 3 ml Amlodipine Besylate (Norvasc) 10 mg PO DAILY [facility] Last Admin: 03/23/17 09:09 Dose: 10 mg Benzocaine/Menthol (Cepacol Sore Throat) 1 dalia MT Q2H PRN PRN Reason: Sore Throat Bisacodyl (Dulcolax) 5 mg PO DAILY [facility] Last Admin: 03/23/17 09:11 Dose: 5 mg Budesonide (Pulmicort Respules) 0.5 mg IH [id number] [facility] Last Admin: 03/24/17 07:20 Dose: 0.5 mg Clonidine HCl (Catapres) 0.3 mg PO TID [facility] Last Admin: 03/23/17 17:27 Dose: 0.3 mg Heparin Sodium (Porcine) (Heparin) 5,000 units SC Q8 GO PRN Reason: Protocol Last Admin: 03/24/17 05:33 Dose: 5,000 units Hydralazine HCl (Apresoline) 10 mg IVP Q4H PRN PRN Reason: BPs>160 Last Admin: 03/23/17 06:01 Dose: 10 mg Hydralazine HCl (Apresoline) 10 mg PO Q6H PRN PRN Reason: Systolic Blood Pressure Hydromorphone HCl (Dilaudid) 2 mg IM Q6H PRN PRN Reason: Pain, moderate (4-7) Last Admin: 03/23/17 15:03 Dose: 2 mg Labetalol HCl (Trandate) 200 mg PO BID [facility] Last Admin: 03/23/17 17:27 Dose: 200 mg Levofloxacin (Levaquin) 500 mg PO DAILY [facility] PRN Reason: Protocol Last Admin: 03/23/17 12:07 Dose: Not Given Losartan Potassium (Cozaar) 100 mg PO DAILY [facility] Last Admin: 03/23/17 09:10 Dose: 100 mg Nicotine (Nicoderm Cq) 1 patch TD DAILY [facility] Last Admin: 03/23/17 09:09 Dose: 1 patch Ondansetron HCl (Zofran Inj) 4 mg IVP Q6H PRN PRN Reason: Nausea/Vomiting Last Admin: 03/19/17 00:05 Dose: 4 mg Oxycodone HCl (Oxycodone Immediate Release Tab) 30 mg PO Q6H [facility] Last Admin: 03/24/17 06:14 Dose: 30 mg Pantoprazole Sodium (Protonix Ec Tab) 40 mg PO ACB [facility] Last Admin: 03/23/17 09:10 Dose: 40 mg - Labs Labs: 03/24/17 06:45 03/24/17 06:45 PT 10.9 SECONDS (9.4-12.5) 03/18/17 04:20 INR 1.00 (0.93-1.08) 03/18/17 04:20 APTT 29.6 Seconds (25.1-36.5) 03/18/17 04:20 - Constitutional Appears: Non-toxic, No Acute Distress - Head Exam Head Exam: ATRAUMATIC - Eye Exam Eye Exam: EOMI - ENT Exam ENT Exam: Mucous Membranes Moist - Respiratory Exam Respiratory Exam: absent: Accessory Muscle Use, Chest Wall Tenderness - Cardiovascular Exam Cardiovascular Exam: +S1, +S2. absent: Bradycardia, Tachycardia - GI/Abdominal Exam GI & Abdominal Exam: Soft, Tenderness. absent: Distended, Firm, Guarding, Rigid Additional comments: appropriately tender around mid-line incision - Extremities Exam Extremities Exam: Normal Inspection. absent: Calf Tenderness - Neurological Exam Neurological Exam: Alert, Awake, Oriented x3 - Psychiatric Exam Psychiatric exam: Normal Affect - Skin Skin Exam: Intact, Warm Assessment and Plan - Assessment and Plan (Free Text) Assessment: 52M exlap lLOA, ventral hernia repair POD 3 Plan: - plan to pull drain today - continue diet - continue medical management - clear for discharge from surgical standpoint - discussed w/ Dr. Dennis surgical attending David Yoo PGY1
[2017-03-24 08:13] VITALS: RESP 20; TEMP 98.6; O2SAT 94
[2017-03-24] MEDS ORDERED: Potassium Chloride 20 mEq ER Tab PO ONE (08:16)
[2017-03-24] MEDS: levoFLOXacin 500 MG TAB PO SCH (09:28)
[2017-03-24] MEDS: Pantoprazole 40 mg EC Tab PO SCH (09:29)
[2017-03-24] MEDS: Bisacodyl 5mg EC Tab PO SCH (09:30)
[2017-03-24] MEDS: HYDROmorphone 2 mg/ml ISec IM PRN (09:41)
--- NOTE | 2017-03-24 10:04 | CP.PCM.PCO ---
Physician Communication Note - Physician Communication Note Physician Communication Note: OK Discharge/follow up office
--- NOTE | 2017-03-24 11:16 | CP.PCM.PN ---
Subjective - Date & Time of Evaluation Date of Evaluation: 03/24/17 Time of Evaluation: 11:14 - Subjective Subjective: Follow up Nephrology Consultation: Assessment: Stable Uncontrolled severe HTN with urgency (likely multi-factorial: cocaine, drug withdrawal, non-compliance to meds, current stresses as illness, surgery, pain) Morbid obesity, sedentary lifestyle Right adrenal gland nodular thickening and left adrenal gland 2.7 cm stable adenoma r/o hypersecretory adenoma Hypokalemia polysubstance abuse with opiates, cocaine, tobacco ventral hernia s/p Ex lap Pneumonia chronic respi acidosis due to CO2 retention with appropriate metabolic compensation Plan BP is much improved today awaiting renin/lauro plasma metanephrines, pt is for possible d/c today, above labs can be followed up as outpt S: feels good, states drains were removed today Physical Examination: General Appearance: Comfortable, in no acute respiratory distress, co-operative . morbid obese Vitals reviewed and noted as below Head; Atraumatic, normocephalic ENT: no ulcers no thrush. Tongue is midline. Oropharynx: no rash or ulcers. EYES: Pupils are equal, round and reactive to light accommodation. Eye muscles and extraocular movement intact. Sclera is anicteric. Neck; supple no lymphadenopathy, no thyromegaly or bruit Lungs: Normal respiratory rate/effort. Breath sounds bilateral equal and clear Heart: Normal rate. s1s2 normal. No rub or gallop. Extremities: no edema. No varicose veins Neurological: Patient is alert, awake and oriented to person, place and time. No focal deficit. Strength bilateral appropriate and equal Skin: Warm and dry. Normal turgor. No rash. Palpitation: Normal elasticity for age Abdomen: Abdomen is soft. Bowel sounds +. There is no abdominal tenderness, no guarding/rigidity no organomegaly. midline maya + Psych: normal insight and normal affect/mood MSK: no joint tenderness or swelling. Digits and nails normal, no deformity : kidney or bladder not palpable Objective - Vital Signs/Intake and Output Vital Signs (last 24 hours): Temp Pulse Resp BP Pulse Ox 98.6 F 81 20 145/84 94 L 03/24/17 08:12 03/24/17 09:28 03/24/17 08:12 03/24/17 09:28 03/24/17 08:12 Intake and Output: 03/24/17 03/24/17 06:59 18:59 Intake Total 480 Output Total 10 Balance 470 - Medications Medications: Current Medications Albuterol/Ipratropium (Duoneb 3 Mg/0.5 Mg (3 Ml) Ud) 3 ml IH [id number] PRN PRN Reason: Wheezing Albuterol/Ipratropium (Duoneb 3 Mg/0.5 Mg (3 Ml) Ud) 3 ml IH [id number] [facility] Last Admin: 03/24/17 07:20 Dose: 3 ml Amlodipine Besylate (Norvasc) 10 mg PO DAILY [facility] Last Admin: 03/24/17 09:27 Dose: 10 mg Benzocaine/Menthol (Cepacol Sore Throat) 1 dalia MT Q2H PRN PRN Reason: Sore Throat Bisacodyl (Dulcolax) 5 mg PO DAILY [facility] Last Admin: 03/24/17 09:30 Dose: Not Given Budesonide (Pulmicort Respules) 0.5 mg IH [id number] [facility] Last Admin: 03/24/17 07:20 Dose: 0.5 mg Clonidine HCl (Catapres) 0.3 mg PO TID [facility] Last Admin: 03/23/17 17:27 Dose: 0.3 mg Heparin Sodium (Porcine) (Heparin) 5,000 units SC Q8 [facility] PRN Reason: Protocol Last Admin: 03/24/17 05:33 Dose: 5,000 units Hydralazine HCl (Apresoline) 10 mg IVP Q4H PRN PRN Reason: BPs>160 Last Admin: 03/23/17 06:01 Dose: 10 mg Hydralazine HCl (Apresoline) 10 mg PO Q6H PRN PRN Reason: Systolic Blood Pressure Hydromorphone HCl (Dilaudid) 2 mg IM Q6H PRN PRN Reason: Pain, moderate (4-7) Last Admin: 03/24/17 09:41 Dose: 2 mg Labetalol HCl (Trandate) 200 mg PO BID [facility] Last Admin: 03/24/17 09:28 Dose: 200 mg Levofloxacin (Levaquin) 500 mg PO DAILY [facility] PRN Reason: Protocol Last Admin: 03/24/17 09:28 Dose: 500 mg Losartan Potassium (Cozaar) 100 mg PO DAILY [facility] Last Admin: 03/24/17 09:29 Dose: 100 mg Metronidazole (Flagyl) 500 mg PO TID [facility] PRN Reason: Protocol Last Admin: 03/24/17 09:26 Dose: 500 mg Nicotine (Nicoderm Cq) 1 patch TD DAILY [facility] Last Admin: 03/24/17 09:26 Dose: 1 patch Ondansetron HCl (Zofran Inj) 4 mg IVP Q6H PRN PRN Reason: Nausea/Vomiting Last Admin: 03/19/17 00:05 Dose: 4 mg Oxycodone HCl (Oxycodone Immediate Release Tab) 30 mg PO Q6H [facility] Last Admin: 03/24/17 06:14 Dose: 30 mg Pantoprazole Sodium (Protonix Ec Tab) 40 mg PO ACB [facility] Last Admin: 03/24/17 09:29 Dose: 40 mg - Labs Labs: 03/24/17 06:45 03/24/17 06:45 PT 10.9 SECONDS (9.4-12.5) 03/18/17 04:20 INR 1.00 (0.93-1.08) 03/18/17 04:20 APTT 29.6 Seconds (25.1-36.5) 03/18/17 04:20
[2017-03-24 12:11] VITALS: BP 139/99; PULSE 98
--- NOTE | 2017-03-24 12:13 | CP.PCM.DIS ---
<Aron Rucker - Last Filed: 03/24/17 12:15> Provider - Provider Date of Admission: 03/18/17 10:30 Attending physician: Zheng Napoles MD Primary care physician: Jose Francisco Tavarez MD Consults: General Surgery - Dr. Dennis Cardio - Dr. Stephenson ICU - Dr. Cason ENT - Dr. Cerna Nephro - Dr. Gilmore Time Spent in preparation of Discharge (in minutes): 45 Diagnosis - Discharge Diagnosis (1) SBO (small bowel obstruction) Status: Resolved (2) Hernia of anterior abdominal wall Status: Resolved Hospital Course - Lab Results Lab Results: Micro Results 03/19/17 15:03 Peritoneal Fluid Gram Stain - Final 03/19/17 15:03 Peritoneal Fluid Body Fluid Culture - Final NO GROWTH AFTER 4 DAYS 03/19/17 18:00 Nose MRSA Culture (Admit) - Final MRSA NOT DETECTED Most Recent Lab Values WBC 11.2 10^3/ul (4.5-11.0) H 03/24/17 06:45 RBC 4.66 10^6/uL (3.5-6.1) 03/24/17 06:45 Hgb 12.4 g/dL (14.0-18.0) L 03/24/17 06:45 Hct 38.2 % (42.0-52.0) L 03/24/17 06:45 MCV 82.0 fl (80.0-105.0) 03/24/17 06:45 MCH 26.6 pg (25.0-35.0) 03/24/17 06:45 MCHC 32.5 g/dl (31.0-37.0) 03/24/17 06:45 RDW 15.2 % (11.5-14.5) H 03/24/17 06:45 Plt Count 304 10^3/uL (120.0-450.0) 03/24/17 06:45 MPV 8.6 fl (7.0-11.0) 03/24/17 06:45 Gran % 58.3 % (50.0-68.0) 03/24/17 06:45 Lymph % (Auto) 21.6 % (22.0-35.0) L 03/24/17 06:45 [place] % (Auto) 13.6 % (1.0-6.0) H 03/24/17 06:45 Eos % (Auto) 6.1 % (1.5-5.0) H 03/24/17 06:45 Baso % (Auto) 0.4 % (0.0-3.0) 03/24/17 06:45 Gran # 6.52 (1.4-6.5) H 03/24/17 06:45 Lymph # 2.4 (1.2-3.4) 03/24/17 06:45 [place] # 1.5 (0.1-0.6) H 03/24/17 06:45 Eos # 0.7 (0.0-0.7) 03/24/17 06:45 Baso # 0.04 K/mm3 (0.0-2.0) 03/24/17 06:45 Neutrophils % (Manual) 73 % (50.0-70.0) H 03/19/17 06:00 Band Neutrophils % 20 % (0-2) H* 03/19/17 06:00 Lymphocytes % (Manual) 3 % (22.0-35.0) L 03/19/17 06:00 Monocytes % (Manual) 4 % (1.0-6.0) 03/19/17 06:00 Toxic Granulation 1+ 03/19/17 06:00 Platelet Evaluation Normal (NORMAL) 03/19/17 06:00 PT 10.9 SECONDS (9.4-12.5) 03/18/17 04:20 INR 1.00 (0.93-1.08) 03/18/17 04:20 APTT 29.6 Seconds (25.1-36.5) 03/18/17 04:20 pCO2 42 mm/Hg (35-45) 03/19/17 20:40 pO2 99 mm/Hg (30-55) H 03/19/17 20:45 HCO3 28.5 mmol/L (21-28) H 03/19/17 20:40 ABG pH 7.44 (7.35-7.45) 03/19/17 20:40 ABG Total CO2 29.8 mmol.L (22-28) H 03/19/17 20:40 ABG O2 Saturation 97.3 % (95-98) 03/19/17 20:40 ABG Base Excess 3.9 mmol/L (-2.0-3.0) H 03/19/17 20:40 ABG Potassium 3.1 mmol/L (3.6-5.2) L 03/19/17 20:40 VBG pH 7.45 (7.32-7.43) H 03/19/17 20:45 VBG pCO2 46.0 (40-60) 03/19/17 20:45 VBG HCO3 32.0 mmol/l (21-28) H 03/19/17 20:45 VBG Total CO2 33.4 mmol.L (22-28) H 03/19/17 20:45 VBG O2 Sat (Calc) 98.6 % (40-65) H 03/19/17 20:45 VBG Base Excess 6.9 mmol/L (0.0-2.0) H 03/19/17 20:45 VBG Potassium 3.8 mmol/L (3.6-5.2) 03/19/17 20:45 Sodium 137.0 mmol/L (132-148) 03/19/17 20:45 Chloride 102.0 mmol/L (98-107) 03/19/17 20:45 Glucose 112 mg/dl (75-110) H 03/19/17 20:45 Lactate 1.1 mmol/L (0.7-2.1) 03/19/17 20:45 Mechanical Rate 14 03/19/17 16:50 FiO2 21.0 % 03/19/17 20:45 Tidal Volume 600 03/19/17 16:50 PEEP 7 03/19/17 16:50 Pressure Support 6 03/18/17 20:01 Inspiratory BiPAP 12 03/18/17 20:01 Sodium 137 mmol/L (132-148) 03/24/17 06:45 Potassium 3.4 mmol/L (3.6-5.0) L 03/24/17 06:45 Chloride 102 mmol/L (98-107) 03/24/17 06:45 Carbon Dioxide 27 mmol/L (21-33) 03/24/17 06:45 Anion Gap 11 (10-20) 03/24/17 06:45 BUN 10 mg/dL (7-21) 03/24/17 06:45 Creatinine 0.7 mg/dl (0.8-1.5) L 03/24/17 06:45 Est GFR ( Amer) > 60 03/24/17 06:45 Est GFR (Non-Af Amer) > 60 03/24/17 06:45 Random Glucose 92 mg/dL (70-110) 03/24/17 06:45 Calcium 8.7 mg/dL (8.4-10.5) 03/24/17 06:45 Phosphorus 3.9 mg/dL (2.5-4.5) 03/24/17 06:45 Magnesium 1.8 mg/dL (1.7-2.2) 03/24/17 06:45 Total Bilirubin 0.4 mg/dL (0.2-1.3) 03/24/17 06:45 AST 71 U/L (17-59) H D 03/24/17 06:45 ALT 55 U/L (7-56) 03/24/17 06:45 Alkaline Phosphatase 53 U/L (38-126) 03/24/17 06:45 Lactate Dehydrogenase 429 U/L (333-699) 03/18/17 05:33 Total Creatine Kinase 188 U/L (35-230) 03/18/17 05:33 Troponin I < 0.01 ng/mL 03/19/17 16:20 NT-Pro-B Natriuret Pep 288 pg/mL (0-450) 03/20/17 06:00 Total Protein 6.2 g/dL (5.8-8.3) 03/24/17 06:45 Albumin 3.0 g/dL (3.0-4.8) 03/24/17 06:45 Globulin 3.2 gm/dL 03/24/17 06:45 Albumin/Globulin Ratio 1.0 (1.1-1.8) L 03/24/17 06:45 Lipase 20 U/L (23-300) L 03/18/17 04:20 Arterial Blood Potassium 3.1 mmol/L (3.6-5.2) L 03/19/17 20:40 Venous Blood Potassium 3.8 mmol/L (3.6-5.2) 03/19/17 20:45 Urine Color Yellow (YELLOW) 03/18/17 05:33 Urine Appearance Clear (CLEAR) 03/18/17 05:33 Urine pH 6.0 (4.7-8.0) 03/18/17 05:33 Ur Specific [place] 1.025 (1.005-1.035) 03/18/17 05:33 Urine Protein Negative mg/dL (<30 mg/dL) 03/18/17 05:33 Urine Glucose (UA) Negative mg/dL (NEGATIVE) 03/18/17 05:33 Urine Ketones Negative mg/dL (NEGATIVE) 03/18/17 05:33 Urine Blood Small (NEGATIVE) H 03/18/17 05:33 Urine Nitrate Negative (NEGATIVE) 03/18/17 05:33 Urine Bilirubin Negative (NEGATIVE) 03/18/17 05:33 Urine Urobilinogen 0.2 E.U./dL (<1 E.U./dL) 03/18/17 05:33 Ur Leukocyte Esterase Negative Marily/uL (NEGATIVE) 03/18/17 05:33 Urine RBC 5 - 10 /hpf (0-2) 03/18/17 05:33 Urine WBC 0 - 2 /hpf (0-6) 03/18/17 05:33 Ur Epithelial Cells 0 - 2 /hpf (0-5) 03/18/17 05:33 Urine Bacteria Many (NEG) 03/18/17 05:33 Urine Opiates Screen Positive (NEGATIVE) H 03/18/17 10:30 Urine Methadone Screen Negative (NEGATIVE) 03/18/17 10:30 Ur Barbiturates Screen Negative (NEGATIVE) 03/18/17 10:30 Ur Phencyclidine Scrn Negative (NEGATIVE) 03/18/17 10:30 Ur Amphetamines Screen Negative (NEGATIVE) 03/18/17 10:30 U Benzodiazepines Scrn Negative (NEGATIVE) 03/18/17 10:30 U Oth Cocaine Metabols Positive (NEGATIVE) H 03/18/17 10:30 U Cannabinoids Screen Negative (NEGATIVE) 03/18/17 10:30 - Hospital Course Hospital Course: 52 yo male whose past medical history includes HTN, ventral hernia, tobacco use , and asthma presented with abdominal pain and admitted for evaluation and treatment of incarcarcerated hernia and resultant SBO. Surgery was consulted on the case. On 03/19 patient underwent exploratory laparotomy, reduction of Small bowel incarceration and ventral hernia repair with mesh. Patient's diet was slowly advanced to soft regular diet and he had first flatus on 03/22 and large bowel movement on 03/23/17. Hospital course complicated by hypertension which was controlled by discharge day with several medications which he will go home with. Cardio and Nephro were consulted due to the HTN. Ambulatory meds below. He is to follow up with his PMD and Surgery within a week to get eleno removed. Patient should follow up with Nephrology for Urine Aldosterone and metanephrines ordered and taken during discharge day as an outpatient. Patient is table for discharge by surgery and medicine team. Patient is agreeable to plan and medications. Additonal Consults: ENT: Self-extubated and had hoarse voice Ambulatory Meds: Labetalol 200mg BID Norvasc 10 Daily Losartan 100 Daily 3 days of LevoFloxacin and Flagyl Tramadol 25 PO q6H PRN for severepain CT abd pelvis: incarc fat cont ventral hernia UA: NEGATIVE UDS: +cocaine, opioids CXR: cardiomegaly ECHO: mild to moderate LVH, Normal Left Vent. Function, Grade 1-abnormal relaxation pattern, mild aortic regurgiation, aortic root mildly enlarged, mild tricuspid regurgitation, mild pulmonary HTN CXR 03/20: improving RLL consolidation Body Fluid Cultures (Peritoneal) - NEGATIVE MRSA - NEGATIVE Patient seen and discussed with Attending Aron Rucker - PGY1 - Date & Time of H&P Date of H&P: 03/24/17 Time of H&P: 12:23 Discharge Exam - Head Exam Head Exam: ATRAUMATIC, NORMAL INSPECTION, NORMOCEPHALIC - Eye Exam Eye Exam: EOMI, Normal appearance - ENT Exam ENT Exam: Mucous Membranes Moist - Respiratory Exam Respiratory Exam: Clear to PA & Lateral. absent: Rales, Rhonchi, Wheezes - Cardiovascular Exam Cardiovascular Exam: RRR, +S1, +S2 - GI/Abdominal Exam GI & Abdominal Exam: Normal Bowel Sounds, Soft. absent: Firm, Guarding, Tenderness Additional comments: Midline Eleno. - Extremities Exam Additional comments: No edema. NO varicose veins - Back Exam Back exam: absent: CVA tenderness (L), CVA tenderness (R) - Neurological Exam Neurological exam: Alert, Oriented x3 - Psychiatric Exam Psychiatric exam: Normal Affect, Normal Mood - Skin Skin Exam: Dry, Intact, Normal Color, Warm Discharge Plan - Discharge Medications Prescriptions: amLODIPine [Norvasc] 10 mg PO DAILY #14 tab cloNIDine [Catapres] 0.3 mg PO TID #42 tab Labetalol [Trandate] 200 mg PO BID #28 tab levoFLOXacin [Levaquin] 500 mg PO DAILY #3 tab Losartan [Cozaar] 100 mg PO DAILY #14 tab metroNIDAZOLE [Flagyl] 500 mg PO TID #9 tab traMADol [Ultram] 25 mg PO Q6H PRN #18 tab PRN Reason: Pain, Severe (8-10) - Follow Up Plan Condition: STABLE Disposition: HOME/ ROUTINE Instructions: Pneumococcal Vaccine for Adults (DC), Influenza Vaccine (DC), Weight Management (DC), Weight Management (GEN), Chronic Hypertension (DC), Chronic Hypertension (GEN), Bowel Obstruction (DC), Bowel Obstruction (GEN) Additional Instructions: Follow up with your primary medical physician Follow up with General surgeon (Dr. Dennis) in 1 week Please take new medications as instructed. Return to Local ER if symptoms worsen. Referrals: Jose Francisco Tavarez MD [Primary Care Provider] - Melvin Dennis MD [Staff Provider] - <Zheng Napoles - Last Filed: 03/24/17 17:16> Provider - Provider Date of Admission: 03/18/17 10:30 Attending physician: Zheng Napoles MD Primary care physician: Jose Francisco Tavarez MD Hospital Course - Lab Results Lab Results: Micro Results 03/19/17 15:03 Peritoneal Fluid Gram Stain - Final 03/19/17 15:03 Peritoneal Fluid Body Fluid Culture - Final NO GROWTH AFTER 4 DAYS 03/19/17 18:00 Nose MRSA Culture (Admit) - Final MRSA NOT DETECTED Most Recent Lab Values WBC 11.2 10^3/ul (4.5-11.0) H 03/24/17 06:45 RBC 4.66 10^6/uL (3.5-6.1) 03/24/17 06:45 Hgb 12.4 g/dL (14.0-18.0) L 03/24/17 06:45 Hct 38.2 % (42.0-52.0) L 03/24/17 06:45 MCV 82.0 fl (80.0-105.0) 03/24/17 06:45 MCH 26.6 pg (25.0-35.0) 03/24/17 06:45 MCHC 32.5 g/dl (31.0-37.0) 03/24/17 06:45 RDW 15.2 % (11.5-14.5) H 03/24/17 06:45 Plt Count 304 10^3/uL (120.0-450.0) 03/24/17 06:45 MPV 8.6 fl (7.0-11.0) 03/24/17 06:45 Gran % 58.3 % (50.0-68.0) 03/24/17 06:45 Lymph % (Auto) 21.6 % (22.0-35.0) L 03/24/17 06:45 [place] % (Auto) 13.6 % (1.0-6.0) H 03/24/17 06:45 Eos % (Auto) 6.1 % (1.5-5.0) H 03/24/17 06:45 Baso % (Auto) 0.4 % (0.0-3.0) 03/24/17 06:45 Gran # 6.52 (1.4-6.5) H 03/24/17 06:45 Lymph # 2.4 (1.2-3.4) 03/24/17 06:45 [place] # 1.5 (0.1-0.6) H 03/24/17 06:45 Eos # 0.7 (0.0-0.7) 03/24/17 06:45 Baso # 0.04 K/mm3 (0.0-2.0) 03/24/17 06:45 Neutrophils % (Manual) 73 % (50.0-70.0) H 03/19/17 06:00 Band Neutrophils % 20 % (0-2) H* 03/19/17 06:00 Lymphocytes % (Manual) 3 % (22.0-35.0) L 03/19/17 06:00 Monocytes % (Manual) 4 % (1.0-6.0) 03/19/17 06:00 Toxic Granulation 1+ 03/19/17 06:00 Platelet Evaluation Normal (NORMAL) 03/19/17 06:00 PT 10.9 SECONDS (9.4-12.5) 03/18/17 04:20 INR 1.00 (0.93-1.08) 03/18/17 04:20 APTT 29.6 Seconds (25.1-36.5) 03/18/17 04:20 pCO2 42 mm/Hg (35-45) 03/19/17 20:40 pO2 99 mm/Hg (30-55) H 03/19/17 20:45 HCO3 28.5 mmol/L (21-28) H 03/19/17 20:40 ABG pH 7.44 (7.35-7.45) 03/19/17 20:40 ABG Total CO2 29.8 mmol.L (22-28) H 03/19/17 20:40 ABG O2 Saturation 97.3 % (95-98) 03/19/17 20:40 ABG Base Excess 3.9 mmol/L (-2.0-3.0) H 03/19/17 20:40 ABG Potassium 3.1 mmol/L (3.6-5.2) L 03/19/17 20:40 VBG pH 7.45 (7.32-7.43) H 03/19/17 20:45 VBG pCO2 46.0 (40-60) 03/19/17 20:45 VBG HCO3 32.0 mmol/l (21-28) H 03/19/17 20:45 VBG Total CO2 33.4 mmol.L (22-28) H 03/19/17 20:45 VBG O2 Sat (Calc) 98.6 % (40-65) H 03/19/17 20:45 VBG Base Excess 6.9 mmol/L (0.0-2.0) H 03/19/17 20:45 VBG Potassium 3.8 mmol/L (3.6-5.2) 03/19/17 20:45 Sodium 137.0 mmol/L (132-148) 03/19/17 20:45 Chloride 102.0 mmol/L (98-107) 03/19/17 20:45 Glucose 112 mg/dl (75-110) H 03/19/17 20:45 Lactate 1.1 mmol/L (0.7-2.1) 03/19/17 20:45 Mechanical Rate 14 03/19/17 16:50 FiO2 21.0 % 03/19/17 20:45 Tidal Volume 600 03/19/17 16:50 PEEP 7 03/19/17 16:50 Pressure Support 6 03/18/17 20:01 Inspiratory BiPAP 12 03/18/17 20:01 Sodium 137 mmol/L (132-148) 03/24/17 06:45 Potassium 3.4 mmol/L (3.6-5.0) L 03/24/17 06:45 Chloride 102 mmol/L (98-107) 03/24/17 06:45 Carbon Dioxide 27 mmol/L (21-33) 03/24/17 06:45 Anion Gap 11 (10-20) 03/24/17 06:45 BUN 10 mg/dL (7-21) 03/24/17 06:45 Creatinine 0.7 mg/dl (0.8-1.5) L 03/24/17 06:45 Est GFR ( Amer) > 60 03/24/17 06:45 Est GFR (Non-Af Amer) > 60 03/24/17 06:45 Random Glucose 92 mg/dL (70-110) 03/24/17 06:45 Calcium 8.7 mg/dL (8.4-10.5) 03/24/17 06:45 Phosphorus 3.9 mg/dL (2.5-4.5) 03/24/17 06:45 Magnesium 1.8 mg/dL (1.7-2.2) 03/24/17 06:45 Total Bilirubin 0.4 mg/dL (0.2-1.3) 03/24/17 06:45 AST 71 U/L (17-59) H D 03/24/17 06:45 ALT 55 U/L (7-56) 03/24/17 06:45 Alkaline Phosphatase 53 U/L (38-126) 03/24/17 06:45 Lactate Dehydrogenase 429 U/L (333-699) 03/18/17 05:33 Total Creatine Kinase 188 U/L (35-230) 03/18/17 05:33 Troponin I < 0.01 ng/mL 03/19/17 16:20 NT-Pro-B Natriuret Pep 288 pg/mL (0-450) 03/20/17 06:00 Total Protein 6.2 g/dL (5.8-8.3) 03/24/17 06:45 Albumin 3.0 g/dL (3.0-4.8) 03/24/17 06:45 Globulin 3.2 gm/dL 03/24/17 06:45 Albumin/Globulin Ratio 1.0 (1.1-1.8) L 03/24/17 06:45 Lipase 20 U/L (23-300) L 03/18/17 04:20 Arterial Blood Potassium 3.1 mmol/L (3.6-5.2) L 03/19/17 20:40 Venous Blood Potassium 3.8 mmol/L (3.6-5.2) 03/19/17 20:45 Urine Color Yellow (YELLOW) 03/18/17 05:33 Urine Appearance Clear (CLEAR) 03/18/17 05:33 Urine pH 6.0 (4.7-8.0) 03/18/17 05:33 Ur Specific [place] 1.025 (1.005-1.035) 03/18/17 05:33 Urine Protein Negative mg/dL (<30 mg/dL) 03/18/17 05:33 Urine Glucose (UA) Negative mg/dL (NEGATIVE) 03/18/17 05:33 Urine Ketones Negative mg/dL (NEGATIVE) 03/18/17 05:33 Urine Blood Small (NEGATIVE) H 03/18/17 05:33 Urine Nitrate Negative (NEGATIVE) 03/18/17 05:33 Urine Bilirubin Negative (NEGATIVE) 03/18/17 05:33 Urine Urobilinogen 0.2 E.U./dL (<1 E.U./dL) 03/18/17 05:33 Ur Leukocyte Esterase Negative Marily/uL (NEGATIVE) 03/18/17 05:33 Urine RBC 5 - 10 /hpf (0-2) 03/18/17 05:33 Urine WBC 0 - 2 /hpf (0-6) 03/18/17 05:33 Ur Epithelial Cells 0 - 2 /hpf (0-5) 03/18/17 05:33 Urine Bacteria Many (NEG) 03/18/17 05:33 Urine Opiates Screen Positive (NEGATIVE) H 03/18/17 10:30 Urine Methadone Screen Negative (NEGATIVE) 03/18/17 10:30 Ur Barbiturates Screen Negative (NEGATIVE) 03/18/17 10:30 Ur Phencyclidine Scrn Negative (NEGATIVE) 03/18/17 10:30 Ur Amphetamines Screen Negative (NEGATIVE) 03/18/17 10:30 U Benzodiazepines Scrn Negative (NEGATIVE) 03/18/17 10:30 U Oth Cocaine Metabols Positive (NEGATIVE) H 03/18/17 10:30 U Cannabinoids Screen Negative (NEGATIVE) 03/18/17 10:30 Attending/Attestation - Attestation I have personally seen and examined this patient.: Yes I have fully participated in the care of the patient.: Yes I have reviewed all pertinent clinical information, including history, physical exam and plan: Yes Notes (Text): 03/24/17 17:13 Patient was seen and examined with medical transcription supervisor. 52 Male with PMH of hypertension , morbid obesity, substance abuse with opiates and cocaine, chronic smoker was admitted with of abdominal pain and was found to have incarcerated ventral hernia .He is s/p Ex lap and reduction of hernia and repair.He is tolerating diet.His abdominal drain was removed today.He was cleared by surgery for discharge He is afebrile, feeling better.Cultures are negative for any growth. Blood pressure medications are better controlled with current medications. He will be discharged home and will follow up with PCP and Surgery. The issue of drug abuse and compliance with medications was discussed in detail with him. Management plan was discussed in detail with patient. Education was provided.
--- NOTE | 2017-03-31 20:14 | OP ---
PROCEDURE DATE: 03/19/2017 PREOPERATIVE DIAGNOSES: 1. Small bowel obstruction with possible strangulated hernia. 2. Chronic obstructive pulmonary disease. 3. Morbid obesity. 4. Opiate withdrawal. POSTOPERATIVE DIAGNOSES: 1. Small bowel obstruction with possible strangulated hernia. 2. Chronic obstructive pulmonary disease. 3. Morbid obesity. 4. Opiate withdrawal. 5. Reduced ventral hernia and a strangulated umbilical hernia. PROCEDURE: 03/19/2017 as an emergency laparotomy, ventral and umbilical herniorrhaphy with ventral X mesh. SURGEON: Melvin Dennis MD MARKETING TECHNOLOGIST: Rodrick Mason DO, PGY1. TYPE OF ANESTHESIA: General endotracheal-marcaine 0.5-20 mL. ANESTHESIA ADMINISTERED BY: Eloy Foss MD OPERATIVE INDICATIONS: The patient is a 52-year-old male, 350 pounds with a known ventral hernia that was seen 8 months earlier. The patient was advised to lose weight and discontinue his heavy opiate use and he returns now the day before with significant weight gain a 1-day history of incarceration of ventral hernia and excruciating pain. His initial white blood count in the Emergency Room was relatively normal with minor left shift and on the following morning the white blood count showed 20 bands and continued symptomatology despite nasogastric decompression and reduction of a ventral hernia. The patient had a previous umbilical hernia repaired with mesh more than 5 years earlier and it is symptomatic in this region just below the ventral hernia that has been reduced and appears at this point that there may be a second hernia that is incarcerated in the abdominal wall. 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 He has been seen by the hydrotechnical specialist, Dr. Walt Cason, who felt that he was not a candidate for the unit and is following the patient with us. The significant change in his white blood count and the concern of a significant vascular impairment to the small bowel prompts the urgent admission on . Risks, benefits and alternatives with their anticipated outcomes were discussed with the patient and he signs the informed consent. OPERATIVE NOTE: The patient was brought to the operating room, identified by his wristband, placed on the table in a supine manner and undergoes time-out procedure. He undergoes the induction of general anesthesia with the insertion of an endotracheal tube. Sequential compression devices were placed on his lower extremity for venous thromboembolism prophylaxis and the abdomen is electrically clipped, prepped with Hibiclens, chlorhexidine preparation and aseptically draped. Midline incision was made from the mid epigastrium down to the umbilicus and sharp dissection with cautery was performed down to the hernia sac below which is circumferentially dissected free with coagulating current. Hemostasis is contained with same and the ventral hernia is slightly isolated, delineated and opened and seen to be completely reduced at this point as clinically determined preoperatively. The examination through the peritoneal opening reveals a loop of small bowel trapped into the umbilical space and freed it up bluntly bringing it down into the peritoneal cavity and held into the incision demonstrates a purple segment of bowel with markedly compromised circulation. Warm compresses were placed on the bowel and it rapidly pinks up with good circulation and is returned to the peritoneal cavity at this point. Dissection was carried on down towards the umbilicus excising the previous cicatrix and mesh complex with a umbilical hernia sac. This is submitted to pathology in formalin for permanent section analysis and multiple sutures of Tycron are removed at this point and the area cleaned completely. At this point, the peritoneal fluid appears clear as cultured aerobically and anaerobically and it is elected to place a 6 x 10 inches oval Ventralex dual layer mesh into the peritoneal cavity and secured to the anterior abdominal wall with the staple packs. A 15-Citizen Of [place] drain is placed through the abdominal wall by trocar technique securing with 2-0 polyester Surgidac suture and placed on top of the mesh and cut to size. The anterior fascia is now approximated with #1 Prolene [id number] interrupted sutures and the subcutaneous space is now lavaged with saline until return is clear and hemostasis was confirmed and closed with running 3-0 Polysorb suture. The fascia and skin are now infiltrated with bupivacaine and the skin was closed with the suture, skin stapler and Steri-Strips. Dry dressing is now placed over same. The patient is awakened, extubated and brought to the recovery room in a satisfactory condition. Sponge, instrument and suture count were verified as correct at the end of the procedure. Estimated blood loss during this procedure was less than 80 mL of blood. The preoperative blood pressure of 200/110, has now dropped to 140/80 and the patient is well sedated from his opioid withdrawal at this point. It is recommended at this point that he go directly to the intensive care unit where the site monitor is more adequately staffed with the nursing observation and we will manage the patient at that point. Melvin Dennis MD
== END 2017-03-24 12:58 | disposition home or self-care (01) | DRG 554 ==
LOC: ED 03:48 → ERH 10:30 → 5RSO 12:06 → 3RNO 16:04 → CCU 03-19 16:07 → 3RSO 03-21 20:53 → UNDODISIN 03-22 14:35 → 5RNO 03-23 16:43
PROVIDERS: ADMIT Surgery; ATTEND Internal Medicine
PROC: 5A1935Z Respiratory Ventilation, Less than 24 Consecutive Hours (ICD-10-PCS; 2017-03-19)
PROC: 0WUF0JZ Supplement Abdominal Wall with Synthetic Substitute, Open Approach (ICD-10-PCS; principal; 2017-03-19 12:30)
DX: K43.6 Other and unspecified ventral hernia with obstruction, without gangrene (principal); J69.0 Pneumonitis due to inhalation of food and vomit; E87.2 Acidosis; I11.0 Hypertensive heart disease with heart failure; E66.01 Morbid (severe) obesity due to excess calories; I08.2 Rheumatic disorders of both aortic and tricuspid valves; I50.9 Heart failure, unspecified; E87.6 Hypokalemia; F11.23 Opioid dependence with withdrawal; F14.10 Cocaine abuse, uncomplicated; J43.9 Emphysema, unspecified; R09.02 Hypoxemia; I27.20 Pulmonary hypertension, unspecified; E11.9 Type 2 diabetes mellitus without complications; F17.210 Nicotine dependence, cigarettes, uncomplicated; G89.18 Other acute postprocedural pain; I16.0 Hypertensive urgency; K42.0 Umbilical hernia with obstruction, without gangrene; K43.2 Incisional hernia without obstruction or gangrene; Z53.20 Procedure and treatment not carried out because of patient's decision for unspecified reasons; Z79.899 Other long term (current) drug therapy; Z91.14 Patient's other noncompliance with medication regimen; R40.2412 Glasgow coma scale score 13-15, at arrival to emergency department; Z68.31 Body mass index [BMI] 31.0-31.9, adult